=== PATIENT | female | born 1935 | race Caucasian/White ===

== ENCOUNTER → 2016-10-18 | Outpatient (CLI) | payer MEDICARE, OTHER | CPT/HCPCS: 90833; G0463 ==

== ENCOUNTER → 2016-12-07 | Outpatient (CLI) | payer MEDICARE, OTHER | DX: F33.0 Major depressive disorder, recurrent, mild (principal) | CPT/HCPCS: 90833; G0463 ==

== ENCOUNTER → 2016-12-29 | Outpatient (CLI) | payer MEDICARE, OTHER | LOC: MW.CHFP 13:24 | PROVIDERS: ATTEND Physician Assistant | DX: K92.1 Melena (principal) | CPT/HCPCS: 36415; 82270; 85025; G0463 ==

== ENCOUNTER → 2017-01-03 | Outpatient (CLI) | payer MEDICARE, OTHER | LOC: MW.CHPM 07:59 | PROVIDERS: ATTEND Anesthesiology | DX: K75.4 Autoimmune hepatitis (principal); G89.4 Chronic pain syndrome; M54.5 Low back pain; G89.29 Other chronic pain; M54.17 Radiculopathy, lumbosacral region | CPT/HCPCS: 36415; 80076; 85025; 85610; 85730; 99214 ==

== ENCOUNTER → 2017-01-09 | Outpatient (CLI) | payer MEDICARE, OTHER | PROVIDERS: ATTEND Nurse Practitioner Family | DX: F33.0 Major depressive disorder, recurrent, mild (principal) | CPT/HCPCS: 90833; G0463 ==

== ENCOUNTER → 2017-01-12 | Outpatient (CLI) | payer MEDICARE, OTHER | LOC: MW.CHFP 13:29 | PROVIDERS: ATTEND Physician Assistant | DX: Z01.818 Encounter for other preprocedural examination (principal); M12.88 Other specific arthropathies, not elsewhere classified, other specified site; R73.9 Hyperglycemia, unspecified; R73.03 Prediabetes | CPT/HCPCS: 36415; 80048; 81001; 83036; 99214 ==

== ENCOUNTER → 2017-01-17 | Outpatient (CLI) | payer MEDICARE, OTHER | LOC: MW.CHPM 08:00 | PROVIDERS: ATTEND Anesthesiology | DX: M96.1 Postlaminectomy syndrome, not elsewhere classified (principal); G89.4 Chronic pain syndrome; M12.88 Other specific arthropathies, not elsewhere classified, other specified site; M54.17 Radiculopathy, lumbosacral region | CPT/HCPCS: 99214 ==

== ENCOUNTER 2017-01-24 09:55 | Day surgery (SDC) | payer MEDICARE, OTHER ==
[~2017-01-24 09:55] MED LIST: Iopamidol 408 MG/ML 50 ML SDV ONE; Lidocaine 2% 5 ML SDV ONE; Ropivacaine 0.5% 5 MG/ML 30 ML SDV ONE
--- NOTE | 2017-01-24 11:20 | PCM.PREANE ---
Preanesthetic Assessment - Anesthesia/Transfusion/Family Hx Anesthesia History: Prior Anesthesia Reaction Other Type of Anesthesia Reaction Comment: N&V x 8hrs post Ptosis surgery Transfusion History: No Prior Transfusion(s) - Review of Systems General: No Symptoms Pulmonary: No Symptoms Cardiovascular: No Symptoms Gastrointestinal: No symptoms Neurological: No Symptoms Other: Reports: None - Physical Assessment Height: 1.65 m Weight: 98.883 kg ASA Class: 3 Mental Status: Alert & Oriented x3 Airway Class: Mallampati = 2 Dentition: Reports: Dentures (upper), Partial (lower) Thyro-Mental Finger Breadths: 3 Mouth Opening Finger Breadths: 2 ROM/Head Extension: Limited/Partial Lungs: Clear to auscultation, Normal respiratory effort Cardiovascular: Regular Rate, Regular Rhythm - Allergies Allergies/Adverse Reactions: Allergies Allergy/AdvReac Type Severity Reaction Status Date / Time metronidazole Allergy Cannot Verified 01/20/17 11:16 Remember morphine Allergy Nausea and Verified 01/20/17 11:16 Vomiting Penicillins Allergy Swelling Verified 01/20/17 11:16 propoxyphene HCl Allergy Drowsiness Verified 01/20/17 11:16 [From [facility]] - Blood Blood Available: No - Anesthesia Plan Pre-Op Medication Ordered: None - Acknowledgements Anesthesia Type Planned: MAC Pt an Appropriate Candidate for the Planned Anesthesia: Yes Alternatives and Risks of Anesthesia Discussed w Pt/Guardian: Yes Pt/Guardian Understands and Agrees with Anesthesia Plan: Yes PreAnesthesia Questionnaire HEENT History: Reports: Glaucoma, Hard of hearing Other HEENT History: wears glasses, has upper denture and lower partial removable denture Cardiovascular History: Reports: High cholesterol, Other (see below) (h/o abnormal EKG 02/21 (see tracing)) Respiratory History: Reports: Bronchitis, recurrent Gastrointestinal History: Reports: Hepatitis Other Gastrointestinal History: Autoimmune Hepatitis, was treated with Prednisone for 2 years- liver now ok per patient 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: Reports: None 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: Musculoskeletal History: Reports: Arthritis, Back pain, chronic, Fracture Other Musculoskeletal History: hx of fx foot Neurological History: Reports: Migraines, Other (see below) Other Neuro History: HX of restless leg syndrome Psychiatric History: Reports: Anxiety, Depression Endocrine/Metabolic History: Reports: Diabetes, type II, Obesity/BMI 30+ Other Endocrine/Metabolic History: recent dx of diabetes Hematologic History: Reports: None Immunologic History: Reports: None Oncologic (Cancer) History: Reports: None Dermatologic History: Reports: Other (see below) Other Dermatologic History: rash on right arm and and legs - Infectious Disease History Infectious Disease History: Reports: Chicken pox, Hepatitis non A,B,C Other Infectious Disease History: autoimmune hepatitis - Past Surgical History Head Surgeries/Procedures: Reports: None HEENT Surgical History: Reports: Tonsillectomy, Other (see below) Other HEENT Surgeries/Procedures: repair of Ptosis bilateral eyelids Cardiovascular Surgical History: Reports: None Respiratory Surgical History: Reports: None GI Surgical History: Reports: Appendectomy, Cholecystectomy Female Surgical History: Reports: Hysterectomy, Other (see below) Other Female Surgeries/Procedures: Exploratory Laparotomy Endocrine Surgical History: Reports: None Neurological Surgical History: Reports: Spinal fusion Musculoskeletal Surgical History: Reports: Knee replacement Other Musculoskeletal Surgeries/Procedures:: left Oncologic Surgical History: Reports: None Dermatological Surgical History: Reports: None - SUBSTANCE USE Smoking Status *Q: Never Smoker Second Hand Smoke Exposure: No Days Per Week of Alcohol Use: 0 Recreational Drug Use History: No - HOME MEDS Home Medications: Home Meds Venlafaxine [Effexor XR] 150 mg PO QPM 06/15/14 [History] rOPINIRole [Requip] 0.5 tab PO BEDTIME 06/15/14 [History] rOPINIRole [Requip] 1 tab PO BEDTIME 06/15/14 [History] Amitriptyline HCl 75 mg PO BEDTIME 01/20/17 [History] Aspirin [Adult Low Dose Aspirin EC] 81 mg PO DAILY 01/20/17 [History] Calcium Carbonate/Vitamin D3 [Calcium 600 + Vit D 200] 1 tab PO DAILY 01/20/17 [ History] Diclofenac Sodium [Voltaren] 4 gm TOP ASDIRECTED 01/20/17 [History] Fluocinonide [Lidex 0.05% Crm] 1 applic TOP BID 01/20/17 [History] Latanoprost [Xalatan 0.005% Ophth Soln] 1 drop EYEBOTH BEDTIME 01/20/17 [History ] Multivitamin [Daily Multiple Vitamin] 1 tab PO DAILY 01/20/17 [History] Venlafaxine [Effexor] 37.5 mg PO QPM 01/20/17 [History] clonazePAM [Klonopin] 0.5 tab PO TID 01/20/17 [History] metFORMIN [Glucophage XR] 500 mg PO DAILY 01/20/17 [History] - CURRENT (IN HOUSE) MEDS Current Meds: Current Medications Discontinued Medications Iopamidol (Isovue-200 (41%)) Confirm Administered Dose 50 ml .ROUTE .STK-MED ONE Stop: 01/24/17 09:42 Lidocaine (Xylocaine-Mpf 2%) Confirm Administered Dose 10 ml .ROUTE .STK-MED ONE Stop: 01/24/17 09:20 Lidocaine HCl (Xylocaine-Mpf 1%) Confirm Administered Dose 10 ml .ROUTE .STK- MED ONE Stop: 01/24/17 09:20 Ropivacaine (Naropin 0.5%) Confirm Administered Dose 30 ml .ROUTE .STK-MED ONE Stop: 01/24/17 09:20
[2017-01-24] MEDS ORDERED: fentaNYL 100 MCG/2 ML SDV ONE (11:56)
[2017-01-24] MEDS ORDERED: Midazolam 1 MG/ML 2 ML SDV ONE (11:56)
[2017-01-24] MEDS ORDERED: Propofol 200 MG/20 ML SDV ONE (11:56)
[2017-01-24] MEDS ORDERED: Clindamycin Phosphate in D5W 50 ML ONE (12:13)
--- NOTE | 2017-01-24 13:42 | PCM48HPAN ---
Post Anesthesia Note - EVALUATION WITHIN 48HRS OF ANESTHETIC Vital Signs in Normal Range: Yes Patient Participated in Evaluation: Yes Respiratory Function Stable: Yes Airway Patent: Yes Cardiovascular Function Stable: Yes Hydration Status Stable: Yes Pain Control Satisfactory: Yes Nausea and Vomiting Control Satisfactory: Yes Mental Status Recovered: Yes - COMMENTS/OBSERVATIONS Free Text/Narrative:: Pt stable enough to go to phase II recovery (skipped PACU). Pt stable. VSS. No apparent anesthesia complications.
--- NOTE | 2017-01-24 14:55 | CR ---
EXAMINATION: Thoracic spine HISTORY: Spinal cord stimulator placement TECHNIQUE: 5 fluoroscopic images provided FINDINGS/IMPRESSION: Operative control films demonstrate a spinal cord stimulator leads projecting o melecio the epidural space of the mid to lower thoracic spine.
--- NOTE | 2017-01-24 18:40 | OR ---
SURGEON: Rosalee Kee D.O. DATE OF PROCEDURE: 01/24/2017 OR STAFF PRESENT: 1. Pritesh Pardo RN. 2. Karlie Giles RN. CLINICAL PHARMACY COORDINATOR: Tamy Barlow RT. WOUND CLASSIFICATION: I. PREOPERATIVE DIAGNOSES: 1. Chronic pain syndrome. 2. Chronic low back pain. 3. Multilevel degenerative disk disease. 4. Lumbar spondylosis. 5. Lumbar spinal stenosis. 6. Lumbar radiculopathy. POSTOPERATIVE DIAGNOSES: 1. Chronic pain syndrome. 2. Chronic low back pain. 3. Multilevel degenerative disk disease. 4. Lumbar spondylosis. 5. Lumbar spinal stenosis. 6. Lumbar radiculopathy. PROCEDURE PERFORMED: 1. Right [employer] In[employer]ion 16, 50 cm, 16-contact trial lead placed to the top of T7 vertebra on the right. 2. Left [employer] In[employer] 16, 50 cm, 16-contact trial lead placed to the top of T7 vertebra on the left. 3. Fluoroscopic guidance for needle placement. 4. Local with oral Valium for sedation. ANESTHESIA: Local with sedation. SCREENING QUESTIONS: The patient answered no to all the following questions: 1. Are you allergic to iodine, Betadine, or latex? 2. Do you have a bleeding disorder? 3. Are you on anti-inflammatories or blood thinners? 4. Are you ? 5. Do you have any current local or systemic infections? 6. Do you have any joint replacements, heart valve replacements or a pacemaker? DESCRIPTION OF PROCEDURE: The patient had the procedure thoroughly explained including risks, benefits, and alternatives. Consent was signed in my clinic indicating understanding and willingness to proceed. The patient presented to [facility] and was escorted to the dressing room to disrobe and change into a hospital gown. Preoperative history and screening were performed by the nurse. Vital signs were taken and stable. The patient was set up with an IV prior to the procedure. The patient was brought back to the procedure room and placed in the prone position on the procedure room table. A pillow was placed under the abdomen in order to flatten the lumbar lordosis. The patient was positioned comfortably and there was no evidence of infection at the sites of needle insertion. The back was prepped with ChloraPrep and sterilely draped. All personnel in the operating room were dressed in appropriate attire including surgical scrubs, head and shoe covers. This was to ensure sterility while in the treatment room. During the time fluoroscopy was in use, all personnel in the operating room wore lead suero with thyroid collars. Sterile technique was used during the procedure. Prior to the start of the procedure, prophylactic antibiotic was administered IV. Skeletal landmarks were identified under fluoroscopic guidance. At all insertion sites, the skin and soft tissues were anesthetized with 2% lidocaine preservative-free with a sterile 27-gauge 1-1/2 inch needle. The epidural space was entered with a 14-gauge Tuohy epidural needle with loss-of- resistance technique. Under live fluoroscopic guidance, the [employer]ion 16 standard contact lead electrodes were advanced approximately to the left midline at the top of the T7 vertebral body on the left and then again second lead placed to the tip of T7 on the right. No CSF, no heme, no paresthesia were noted. Testing by the neuromodulation clinical specialist revealed appropriate coverage of the patient's normal areas of pain. The leads were then secured to the skin with occlusive dressing. No complications were noted throughout the procedure and vital signs were stable. Then the patient was brought to the recovery room in stable condition. At that time, the patient had additional stimulation patterns programmed which covered all of her normal areas of back leg, and foot pain. The patient tolerated the procedure well and was released home with postoperative instructions for followup in the clinic in the morning. The patient will fill out a pain diary throughout the week of the spinal cord stimulator trial. Additionally, prior to discharge, postoperative instructions were given to the patient and the patient voiced understanding, including understanding of those signs and symptoms that would require emergency care. PREOPERATIVE PAIN: 10/10. POSTOPERATIVE PAIN: All areas of pain covered by spinal cord stimulation. 0/10 FOLLOWUP: Follow up in the Pain Clinic in the morning. HOGHIREN / DOMINICK /[id number] SHAYNA
== END 2017-01-24 15:00 | disposition home or self-care (01) ==
LOC: MW.SDS 09:55
PROVIDERS: ATTEND Anesthesiology
DX: G89.4 Chronic pain syndrome (principal); M47.896 Other spondylosis, lumbar region; M48.06 Spinal stenosis, lumbar region; J20.9 Acute bronchitis, unspecified; F41.9 Anxiety disorder, unspecified; F32.9 Major depressive disorder, single episode, unspecified; E78.00 Pure hypercholesterolemia, unspecified; M79.1 Myalgia; M19.90 Unspecified osteoarthritis, unspecified site; G57.02 Lesion of sciatic nerve, left lower limb; R73.03 Prediabetes; G25.81 Restless legs syndrome; M96.1 Postlaminectomy syndrome, not elsewhere classified; Z88.0 Allergy status to penicillin; Z88.1 Allergy status to other antibiotic agents; Z88.5 Allergy status to narcotic agent; Z88.8 Allergy status to other drugs, medicaments and biological substances; Z79.891 Long term (current) use of opiate analgesic; Z79.82 Long term (current) use of aspirin; Z79.899 Other long term (current) drug therapy; Z96.652 Presence of left artificial knee joint; Z90.49 Acquired absence of other specified parts of digestive tract; Z90.710 Acquired absence of both cervix and uterus; Z90.89 Acquired absence of other organs; Z98.890 Other specified postprocedural states
CPT/HCPCS: 63650; 76000; C1778; J3010; 00630; 63685; J2250; J2704; J2795; Q9966

== ENCOUNTER → 2017-01-27 | Outpatient (CLI) | payer MEDICARE, OTHER ==
--- NOTE | 2017-01-27 11:41 | CR ---
EXAMINATION: Thoracic spine HISTORY: Pain COMPARISON: MRI dated 04/12/2016 TECHNIQUE: 2 views FINDINGS: There is mild dextrocurvature of the thoracic spine. The vertebral body heights and disc s paces appear grossly maintained. The osseous structures appear mildly osteopenic. Spinal stimulator leads project within the epidural space of the T8-T10 vertebral bodies. No fracture or acute osseous abnormality. Marginal osteophytes are noted. IMPRESSION: 1. Mild degenerative changes without acute findings. 2. Final stimulator leads project over the mid to lower thoracic spine. 3. Otherwise osteopenia.
== END ==
LOC: MW.CHPM 09:13
PROVIDERS: ATTEND Anesthesiology
DX: M54.5 Low back pain (principal); G89.29 Other chronic pain; R35.0 Frequency of micturition; M47.814 Spondylosis without myelopathy or radiculopathy, thoracic region; M85.88 Other specified disorders of bone density and structure, other site
CPT/HCPCS: 72070; 72070-26; 81001

== ENCOUNTER → 2017-01-30 | Outpatient (CLI) | payer MEDICARE, OTHER | LOC: MW.CHPM 08:00 | PROVIDERS: ATTEND Anesthesiology | DX: M54.17 Radiculopathy, lumbosacral region (principal); Z79.891 Long term (current) use of opiate analgesic; G89.4 Chronic pain syndrome; M51.36 Other intervertebral disc degeneration, lumbar region | CPT/HCPCS: 99214 ==

== ENCOUNTER 2017-02-25 11:04 | Emergency (ER) | payer MEDICARE, OTHER ==
--- NOTE | 2017-02-25 11:32 | EDM.PDOC ---
ED HPI GENERAL MEDICAL PROBLEM - General Chief Complaint: Genitourinary Problem Stated Complaint: POSSIBLE UTI Time Seen by Provider: 02/25/17 11:05 Source of Information: Reports: Patient History Limitations: Reports: No Limitations - History of Present Illness INITIAL COMMENTS - FREE TEXT/NARRATIVE: History of present illness: [81-year-old female presenting with complaints of blood in her urine. Patient also indicates she has some amount of flank pain which is new for her, but she does indicate that she has had history of UTIs in the past with blood in with the same complaint pain.] Review of systems: As per history of present illness and below otherwise all systems reviewed and negative. Past medical history: As per history of present illness and as reviewed below otherwise noncontributory. Surgical history: As per history of present illness and as reviewed below otherwise noncontributory. Social history: No reported history of drug or alcohol abuse. Family history: As per history of present illness and as reviewed below otherwise noncontributory. Physical exam: HEENT: Atraumatic, normocephalic, pupils reactive, negative for conjunctival pallor or scleral icterus, mucous membranes moist, throat clear, neck supple, nontender, trachea midline. Lungs: Clear to auscultation, breath sounds equal bilaterally, chest nontender. Heart: S1S2, regular, negative for clicks, rubs, or JVD. Abdomen: Soft, nondistended, nontender. Negative for masses or hepatosplenomegaly. Positive for costovertebral tenderness. Pelvis: Stable nontender. Genitourinary: Deferred. Rectal: Deferred. Extremities: Atraumatic, negative for cords or calf pain. Neurovascular unremarkable. Neuro: Awake, alert, oriented. Cranial nerves II through XII unremarkable. Cerebellum unremarkable. Motor and sensory unremarkable throughout. Exam nonfocal. Diagnostics: [UA, CT without contrast of abdomen to] Therapeutics: [] Impression: [Hemorrhagic cystitis Liver lesion] Plan: [Antibiotics, followup with PCP for further evaluation of urinary concerns as well as incidental liver findings] Definitive disposition and diagnosis as appropriate pending reevaluation and review of above. lower abdominal pain Pain Score (Numeric/FACES): 1 - Related Data Allergies Allergy/AdvReac Type Severity Reaction Status Date / Time metronidazole Allergy Cannot Verified 02/25/17 11:11 Remember morphine Allergy Nausea and Verified 02/25/17 11:11 Vomiting Penicillins Allergy Swelling Verified 02/25/17 11:11 propoxyphene HCl Allergy Drowsiness Verified 02/25/17 11:11 [From [facility]] Home Meds: Home Meds Venlafaxine [Effexor XR] 150 mg PO QPM 06/15/14 [History] rOPINIRole [Requip] 0.5 tab PO BEDTIME 06/15/14 [History] rOPINIRole [Requip] 1 tab PO BEDTIME 06/15/14 [History] Amitriptyline HCl 75 mg PO BEDTIME 01/20/17 [History] Aspirin [Adult Low Dose Aspirin EC] 81 mg PO DAILY 01/20/17 [History] Calcium Carbonate/Vitamin D3 [Calcium 600 + Vit D 200] 1 tab PO DAILY 01/20/17 [ History] Diclofenac Sodium [Voltaren] 4 gm TOP ASDIRECTED 01/20/17 [History] Fluocinonide [Lidex 0.05% Crm] 1 applic TOP BID 01/20/17 [History] Latanoprost [Xalatan 0.005% Ophth Soln] 1 drop EYEBOTH BEDTIME 01/20/17 [History ] Multivitamin [Daily Multiple Vitamin] 1 tab PO DAILY 01/20/17 [History] Venlafaxine [Effexor] 37.5 mg PO QPM 01/20/17 [History] clonazePAM [Klonopin] 0.5 tab PO TID 01/20/17 [History] metFORMIN [Glucophage XR] 500 mg PO DAILY 01/20/17 [History] Nitrofurantoin Monohyd/M-Cryst [Macrobid 100 mg Capsule] 100 mg PO BID #20 capsule 02/25/17 [Rx] Past Medical History HEENT History: Reports: Glaucoma, Hard of Hearing Other HEENT History: wears glasses, has upper denture and lower partial removable denture Cardiovascular History: Reports: High Cholesterol, Other (See Below) Respiratory History: Reports: Bronchitis, Recurrent Gastrointestinal History: Reports: Hepatitis Other Gastrointestinal History: Autoimmune Hepatitis, was treated with Prednisone for 2 years- liver now ok per patient 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: Reports: None 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: Musculoskeletal History: Reports: Arthritis, Back Pain, Chronic, Fracture Other Musculoskeletal History: hx of fx foot Neurological History: Reports: Migraines, Other (See Below) Other Neuro History: HX of restless leg syndrome Psychiatric History: Reports: Anxiety, Depression Endocrine/Metabolic History: Reports: Diabetes, Type II, Obesity/BMI 30+ Other Endocrine/Metabolic History: recent dx of diabetes Hematologic History: Reports: None Immunologic History: Reports: None Oncologic (Cancer) History: Reports: None Dermatologic History: Reports: Other (See Below) Other Dermatologic History: rash on right arm and and legs - Infectious Disease History Infectious Disease History: Reports: Chicken Pox, Hepatitis non A,B,C Other Infectious Disease History: autoimmune hepatitis - Past Surgical History HEENT Surgical History: Reports: Tonsillectomy, Other (See Below) Female Surgical History: Reports: Hysterectomy, Other (See Below) Neurological Surgical History: Reports: Spinal Fusion Musculoskeletal Surgical History: Reports: Knee Replacement Social & Family History - Family History Family Medical History: Noncontributory Cardiac: Reports: High Cholesterol, [place] - Tobacco Use Smoking Status *Q: Never Smoker Second Hand Smoke Exposure: No - Alcohol Use Days Per Week of Alcohol Use: 0 - Recreational Drug Use Recreational Drug Use: No Drug Use in Last 12 Months: No ED ROS GENERAL - Review of Systems Review Of Systems: See Below (See history of present illness) ED EXAM, RENAL/ - Physical Exam Exam: See Below (See history of present illness) Course - Vital Signs Last Recorded V/S: Last Vital Signs Temp 36.1 C 02/25/17 11:11 Pulse 93 02/25/17 11:11 Resp 18 02/25/17 11:11 BP 121/67 02/25/17 11:11 Pulse Ox 96 02/25/17 11:11 - Orders/Labs/Meds Orders: Active Orders 24 hr Category Date Time Status UA W/MICROSCOPIC [URIN] Stat Lab 02/25/17 11:26 Ordered Departure - Departure Time of Disposition: 13:44 Disposition: Home, Self-Care 01 Condition: good Clinical Impression: Hemorrhagic cystitis - Discharge Information Forms: ED Department Discharge Additional Instructions: The following information is given to patients seen in the emergency department who are being discharged to home. This information is to outline your options for follow-up care. We provide all patients seen in our emergency department with a follow-up referral. The need for follow-up, as well as the timing and circumstances, are variable depending upon the specifics of your emergency department visit. If you don't have a primary care physician on staff, we will provide you with a referral. We always advise you to contact your personal physician following an emergency department visit to inform them of the circumstance of the visit and for follow-up with them and/or the need for any referrals to a consulting specialist. The emergency department will also refer you to a specialist when appropriate. This referral assures that you have the opportunity for follow-up care with a specialist. All of these measure are taken in an effort to provide you with optimal care, which includes your follow-up. Under all circumstances we always encourage you to contact your private physician who remains a resource for coordinating your care. When calling for follow-up care, please make the office aware that this follow-up is from your recent emergency room visit. If for any reason you are refused follow-up, please contact the [facility] Emergency Department at and asked to speak to the emergency department charge nurse. Take medication as directed Followup with your primary care provider in regards to the bleeding from your bladder as discussed as well as the findings from the CT on your liver. As discussed this could be issues related to the history of hepatitis or something more concerning it is imperative that you followup with us as discussed Return to ED as needed as discussed - My Orders Last 24 Hours: My Active Orders 02/25/17 11:26 UA W/MICROSCOPIC [URIN] Stat - Assessment/Plan Last 24 Hours: My Active Orders 02/25/17 11:26 UA W/MICROSCOPIC [URIN] Stat
[2017-02-25 14:02] VITALS: BP 111/70
--- NOTE | 2017-02-27 14:34 | CT ---
EXAM DATE: 02/25/17 PATIENT'S AGE: 81 Patient: MOHINDER MCFARLAND Facility: [facility] [place] [place] Site . Site : [id number] Study: CT Abdomen/Pelvis WO CONT [id number]/[id number] 12:37:02 PM Ordering Physician: Doctor Rodarte Final Report: INDICATION: Flank pain; hematuria; burning pain. Comparison: None. Technique: CT abdomen and pelvis without intravenous or oral contrast; coronal and sagittal reformats. Findings: No abnormal intra pulmonary nodular densities through the lung bases. No evidence of pleural effusion. Normal size cardiac silhouette without any evidence of pericardial effusion. Suggestion of multiple mass lesions within the liver raising a question of metastatic liver disease. This needs further assessment either with focused ultrasound examination of the liver or if clinical situation permits, a repeat CT of the liver with intravenous contrast. No splenic pathology. No pancreatic pathology. Gallbladder is absent. No adrenal pathology. No kidney stones. No obstructive uropathy or perinephric pathology. No retroperitoneal lymphadenopathy. No evidence of abdominal or pelvic ascites. CT study of the pelvis is unremarkable. Status post hysterectomy. Grade 1 spondylolisthesis of L4. No evidence of spondylolysis. Impression: Abnormal liver with suggestion of multiple mass lesions; rule out metastatic disease; suggest obtaining dedicated CT of the liver with intravenous contrast or a focused ultrasound examination of the liver. 1. No kidneys stones or obstructive uropathy. 2. Status post hysterectomy. 3. Grade 1 spondylolisthesis of L4. Please note that all CT scans at this facility use dose modulation, iterative reconstruction, and/or weight-based dosing when appropriate to reduce radiation dose to as low as reasonably achievable. Dictated by Alton Kwok MD @ Feb 25 2017 1:27PM (Electronic Signature) Report Signed by Proxy. SHAYNA
== END 2017-02-25 13:59 | disposition home or self-care (01) ==
LOC: MW.ED 11:04
DX: N30.91 Cystitis, unspecified with hematuria (principal); E78.00 Pure hypercholesterolemia, unspecified; M19.90 Unspecified osteoarthritis, unspecified site; E11.9 Type 2 diabetes mellitus without complications; G43.909 Migraine, unspecified, not intractable, without status migrainosus; F41.9 Anxiety disorder, unspecified; E66.9 Obesity, unspecified; F32.9 Major depressive disorder, single episode, unspecified; Z88.8 Allergy status to other drugs, medicaments and biological substances; Z79.84 Long term (current) use of oral hypoglycemic drugs; Z79.82 Long term (current) use of aspirin; Z98.890 Other specified postprocedural states; Z88.0 Allergy status to penicillin; Z90.710 Acquired absence of both cervix and uterus; Z96.659 Presence of unspecified artificial knee joint; Z88.5 Allergy status to narcotic agent
CPT/HCPCS: 74176; 74176-26; 81001; 87086; 99283; 99284-25

== ENCOUNTER → 2017-02-28 | Outpatient (CLI) | payer MEDICARE, OTHER | LOC: MW.CHFP 10:28 | PROVIDERS: ATTEND Physician Assistant | DX: R93.2 Abnormal findings on diagnostic imaging of liver and biliary tract (principal); K75.4 Autoimmune hepatitis | CPT/HCPCS: 36415; 80053; 85025; G0463 ==

== ENCOUNTER 2017-03-26 10:14 | Emergency (ER) | payer MEDICARE, OTHER ==
--- NOTE | 2017-03-26 10:27 | EDM.PDOC ---
ED HPI GENERAL MEDICAL PROBLEM - General Chief Complaint: Genitourinary Problem Stated Complaint: URINARY ISSUES Time Seen by Provider: 03/26/17 10:27 Source of Information: Reports: Patient - History of Present Illness INITIAL COMMENTS - FREE TEXT/NARRATIVE: HISTORY AND PHYSICAL: History of present illness: []Patient presents with dysuria and frequency over the last 24-48 hours no fever nausea vomiting chills sweats Review of systems: As per history of present illness and below otherwise all systems reviewed and negative. Past medical history: As per history of present illness and as reviewed below otherwise noncontributory. Surgical history: As per history of present illness and as reviewed below otherwise noncontributory. Social history: No reported history of drug or alcohol abuse. Family history: As per history of present illness and as reviewed below otherwise noncontributory. Physical exam: HEENT: Atraumatic, normocephalic, pupils reactive, negative for conjunctival pallor or scleral icterus, mucous membranes moist, throat clear, neck supple, nontender, trachea midline. Lungs: Clear to auscultation, breath sounds equal bilaterally, chest nontender. Heart: S1S2, regular, negative for clicks, rubs, or JVD. Abdomen: Soft, nondistended, nontender. Negative for masses or hepatosplenomegaly. Negative for costovertebral tenderness. Pelvis: Stable nontender. Genitourinary: Deferred. Rectal: Deferred. Extremities: Atraumatic, negative for cords or calf pain. Neurovascular unremarkable. Neuro: Awake, alert, oriented. Cranial nerves II through XII unremarkable. Cerebellum unremarkable. Motor and sensory unremarkable throughout. Exam nonfocal. Diagnostics: []UA with culture Therapeutics: []Macrobid Pyridium Impression: []Dysuria Definitive disposition and diagnosis as appropriate pending reevaluation and review of above. - Related Data Allergies Allergy/AdvReac Type Severity Reaction Status Date / Time metronidazole Allergy Cannot Verified 03/26/17 10:28 Remember morphine Allergy Nausea and Verified 03/26/17 10:28 Vomiting Penicillins Allergy Swelling Verified 03/26/17 10:28 propoxyphene HCl Allergy Drowsiness Verified 03/26/17 10:28 [From Darvon] Home Meds: Home Meds Venlafaxine [Effexor XR] 150 mg PO QPM 06/15/14 [History] rOPINIRole [Requip] 1 tab PO BEDTIME 06/15/14 [History] Amitriptyline HCl 75 mg PO BEDTIME 01/20/17 [History] Aspirin [Adult Low Dose Aspirin EC] 81 mg PO DAILY 01/20/17 [History] Calcium Carbonate/Vitamin D3 [Calcium 600 + Vit D 200] 1 tab PO DAILY 01/20/17 [ History] Diclofenac Sodium [Voltaren] 4 gm TOP ASDIRECTED 01/20/17 [History] Fluocinonide [Lidex 0.05% Crm] 1 applic TOP BID 01/20/17 [History] Latanoprost [Xalatan 0.005% Ophth Soln] 1 drop EYEBOTH BEDTIME 01/20/17 [History ] Multivitamin [Daily Multiple Vitamin] 1 tab PO DAILY 01/20/17 [History] Venlafaxine [Effexor] 37.5 mg PO QPM 01/20/17 [History] clonazePAM [Klonopin] 0.5 tab PO TID 01/20/17 [History] metFORMIN [Glucophage XR] 500 mg PO BID 01/20/17 [History] Past Medical History HEENT History: Reports: Glaucoma, Hard of Hearing Other HEENT History: wears glasses, has upper denture and lower partial removable denture Cardiovascular History: Reports: High Cholesterol, Other (See Below) Respiratory History: Reports: Bronchitis, Recurrent Gastrointestinal History: Reports: Hepatitis Other Gastrointestinal History: Autoimmune Hepatitis, was treated with Prednisone for 2 years- liver now ok per patient 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: Reports: None 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: Musculoskeletal History: Reports: Arthritis, Back Pain, Chronic, Fracture Other Musculoskeletal History: hx of fx foot Neurological History: Reports: Migraines, Other (See Below) Other Neuro History: HX of restless leg syndrome Psychiatric History: Reports: Anxiety, Depression Endocrine/Metabolic History: Reports: Diabetes, Type II, Obesity/BMI 30+ Other Endocrine/Metabolic History: recent dx of diabetes Hematologic History: Reports: None Immunologic History: Reports: None Oncologic (Cancer) History: Reports: None Dermatologic History: Reports: Other (See Below) Other Dermatologic History: rash on right arm and and legs - Infectious Disease History Infectious Disease History: Reports: Chicken Pox, Hepatitis non A,B,C Other Infectious Disease History: autoimmune hepatitis - Past Surgical History HEENT Surgical History: Reports: Tonsillectomy, Other (See Below) Female Surgical History: Reports: Hysterectomy, Other (See Below) Neurological Surgical History: Reports: Spinal Fusion Musculoskeletal Surgical History: Reports: Knee Replacement Social & Family History - Family History Family Medical History: Noncontributory Cardiac: Reports: High Cholesterol, [place] - Tobacco Use Smoking Status *Q: Never Smoker Second Hand Smoke Exposure: No - Caffeine Use Caffeine Use: Reports: None - Alcohol Use Days Per Week of Alcohol Use: 0 - Recreational Drug Use Recreational Drug Use: No Drug Use in Last 12 Months: No ED ROS GENERAL - Review of Systems Review Of Systems: ROS reveals no pertinent complaints other than HPI. ED EXAM, GENERAL - Physical Exam Exam: See Below Course - Vital Signs Last Recorded V/S: Last Vital Signs Temp 36.5 C 03/26/17 10:25 Pulse 98 03/26/17 10:25 Resp 18 03/26/17 10:25 BP 140/77 03/26/17 10:25 Pulse Ox 95 03/26/17 10:25 - Orders/Labs/Meds Orders: Active Orders 24 hr Category Date Time Status CULTURE URINE [RM] Stat Lab 03/26/17 11:30 Received UA W/MICROSCOPIC [URIN] Stat Lab 03/26/17 11:30 Results Labs: Laboratory Tests 03/26/17 Range/Units 11:30 Urine Color RED Urine Appearance SLT CLOUDY Urine pH 5.5 (5.0-8.0) Ur Specific [place] 1.010 (1.001-1.035) Urine Protein 100 (NEGATIVE) mg/dL Urine Glucose (UA) NEGATIVE (NEGATIVE) mg/dL Urine Ketones NEGATIVE (NEGATIVE) mg/dL Urine Occult Blood LARGE H (NEGATIVE) Urine Nitrite NEGATIVE (NEGATIVE) Urine Bilirubin SMALL H (NEGATIVE) Urine Urobilinogen 0.2 (<2.0) EU/dL Ur Leukocyte Esterase LARGE (NEGATIVE) Departure - Departure Time of Disposition: 11:43 Disposition: Home, Self-Care 01 Condition: Good Clinical Impression: UTI, Urinary tract infectious disease - Discharge Information Forms: ED Department Discharge Additional Instructions: The following information is given to patients seen in the emergency department who are being discharged to home. This information is to outline your options for follow-up care. We provide all patients seen in our emergency department with a follow-up referral. The need for follow-up, as well as the timing and circumstances, are variable depending upon the specifics of your emergency department visit. If you don't have a primary care physician on staff, we will provide you with a referral. We always advise you to contact your personal physician following an emergency department visit to inform them of the circumstance of the visit and for follow-up with them and/or the need for any referrals to a consulting specialist. The emergency department will also refer you to a specialist when appropriate. This referral assures that you have the opportunity for follow-up care with a specialist. All of these measure are taken in an effort to provide you with optimal care, which includes your follow-up. Under all circumstances we always encourage you to contact your private physician who remains a resource for coordinating your care. When calling for follow-up care, please make the office aware that this follow-up is from your recent emergency room visit. If for any reason you are refused follow-up, please contact the [facility] emergency department at and asked to speak to the emergency department charge nurse. - My Orders Last 24 Hours: My Active Orders 03/26/17 11:30 CULTURE URINE [RM] Stat UA W/MICROSCOPIC [URIN] Stat - Assessment/Plan Last 24 Hours: My Active Orders 03/26/17 11:30 CULTURE URINE [RM] Stat UA W/MICROSCOPIC [URIN] Stat
[2017-03-26 12:13] VITALS: BP 112/62
== END 2017-03-26 12:13 | disposition home or self-care (01) ==
LOC: MW.ED 10:14
DX: N39.0 Urinary tract infection, site not specified (principal); E78.00 Pure hypercholesterolemia, unspecified; E11.9 Type 2 diabetes mellitus without complications; E66.9 Obesity, unspecified; Z88.0 Allergy status to penicillin; Z88.8 Allergy status to other drugs, medicaments and biological substances; Z79.899 Other long term (current) drug therapy; Z79.84 Long term (current) use of oral hypoglycemic drugs; Z90.710 Acquired absence of both cervix and uterus; Z96.659 Presence of unspecified artificial knee joint; Z68.34 Body mass index [BMI] 34.0-34.9, adult
CPT/HCPCS: 81001; 87086; 87088; 87186; 99283

== ENCOUNTER 2017-04-21 10:41 | Emergency (ER) | payer MEDICARE, OTHER ==
[2017-04-21] MEDS ORDERED: Famotidine 20 MG/2 ML SDV IVPUSH ONE (11:00)
[2017-04-21] MEDS ORDERED: Aspirin 81 MG Tab.Chew PO ONE (11:00)
[2017-04-21] MEDS ORDERED: Alum Hydrox/Mag Hydrox/Simeth 15 ML, Metoclopramide 5 MG, Lidocaine 2% 5 ML PO ONE ×3 (11:00)
[2017-04-21] MEDS ORDERED: Ketorolac 30 MG/ML SDV IVPUSH ONE (11:00)
[2017-04-21 12:10] VITALS: BP 136/75
--- NOTE | 2017-04-21 12:34 | EDM.PDOC ---
ED HPI GENERAL MEDICAL PROBLEM - General Chief Complaint: General Stated Complaint: COLD CHILL IN HER CHEST AREA, DIZZINESS Time Seen by Provider: 04/21/17 11:00 Source of Information: Reports: Patient History Limitations: Reports: No Limitations - History of Present Illness INITIAL COMMENTS - FREE TEXT/NARRATIVE: History of present illness: 82-year-old female comes in complaining of feelings of being lightheaded this a.m. as well as having a cold sensation in her chest. Patient denies any nausea vomiting diarrhea and/or passing out. Review of systems: As per history of present illness and below otherwise all systems reviewed and negative. Past medical history: As per history of present illness and as reviewed below otherwise noncontributory. Surgical history: As per history of present illness and as reviewed below otherwise noncontributory. Social history: No reported history of drug or alcohol abuse. Family history: As per history of present illness and as reviewed below otherwise noncontributory. Physical exam: HEENT: Atraumatic, normocephalic, pupils reactive, negative for conjunctival pallor or scleral icterus, mucous membranes moist, throat clear, neck supple, nontender, trachea midline. Lungs: Clear to auscultation, breath sounds equal bilaterally, chest nontender. Heart: S1S2, regular, negative for clicks, rubs, or JVD. Abdomen: Soft, nondistended, nontender. Negative for masses or hepatosplenomegaly. Negative for costovertebral tenderness. Pelvis: Stable nontender. Genitourinary: Deferred. Rectal: Deferred. Extremities: Atraumatic, negative for cords or calf pain. Neurovascular unremarkable. Neuro: Awake, alert, oriented. Cranial nerves II through XII unremarkable. Cerebellum unremarkable. Motor and sensory unremarkable throughout. Exam nonfocal. Goal assessment is benign save the subjective complaint as noted in the history of present illness of events that happened prior to arrival Diagnostics: [EKG, CBC, CMP, troponin, UA] Therapeutics: [IV fluids, chest pain] Impression: [UTI] Plan: [Macrobid] Definitive disposition and diagnosis as appropriate pending reevaluation and review of above. - Related Data Allergies Allergy/AdvReac Type Severity Reaction Status Date / Time metronidazole Allergy Cannot Verified 04/21/17 10:47 Remember morphine Allergy Nausea and Verified 04/21/17 10:47 Vomiting Penicillins Allergy Swelling Verified 04/21/17 10:47 propoxyphene HCl Allergy Drowsiness Verified 04/21/17 10:47 [From Darvon] Home Meds: Home Meds Venlafaxine [Effexor XR] 150 mg PO QPM 06/15/14 [History] rOPINIRole [Requip] 1 tab PO BEDTIME 06/15/14 [History] Amitriptyline HCl 75 mg PO BEDTIME 01/20/17 [History] Aspirin [Adult Low Dose Aspirin EC] 81 mg PO DAILY 01/20/17 [History] Latanoprost [Xalatan 0.005% Ophth Soln] 1 drop EYEBOTH BEDTIME 01/20/17 [History ] Multivitamin [Daily Multiple Vitamin] 1 tab PO DAILY 01/20/17 [History] Venlafaxine [Effexor] 37.5 mg PO QPM 01/20/17 [History] clonazePAM [Klonopin] 0.5 tab PO TID 01/20/17 [History] metFORMIN [Glucophage XR] 500 mg PO BID 01/20/17 [History] Nitrofurantoin Monohyd/M-Cryst [Macrobid 100 mg Capsule] 100 mg PO BID #20 capsule 04/21/17 [Rx] Past Medical History HEENT History: Reports: Glaucoma, Hard of Hearing, Impaired Vision Other HEENT History: wears glasses, has upper denture and lower partial removable denture Cardiovascular History: Reports: High Cholesterol Respiratory History: Reports: Bronchitis, Recurrent Gastrointestinal History: Reports: Hepatitis Other Gastrointestinal History: Autoimmune Hepatitis, was treated with Prednisone for 2 years- liver now ok per patient 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: Reports: None [employer] History: Reports: Musculoskeletal History: Reports: Arthritis, Back Pain, Chronic, Fracture Other Musculoskeletal History: hx of fx foot Neurological History: Reports: Migraines, Other (See Below) Other Neuro History: HX of restless leg syndrome Psychiatric History: Reports: Anxiety, Depression Endocrine/Metabolic History: Reports: Diabetes, Type II, Obesity/BMI 30+ Other Endocrine/Metabolic History: recent dx of diabetes Hematologic History: Reports: None Immunologic History: Reports: None Oncologic (Cancer) History: Reports: None Dermatologic History: Reports: Other (See Below) Other Dermatologic History: rash on right arm and and legs - Infectious Disease History Infectious Disease History: Reports: Other (See Below) Other Infectious Disease History: Autoiimune hepatitis - Past Surgical History HEENT Surgical History: Reports: Tonsillectomy, Other (See Below) Female Surgical History: Reports: Hysterectomy, Other (See Below) Neurological Surgical History: Reports: Spinal Fusion Musculoskeletal Surgical History: Reports: Knee Replacement Social & Family History - Family History Family Medical History: Noncontributory Cardiac: Reports: High Cholesterol, [place] - Tobacco Use Smoking Status *Q: Never Smoker Second Hand Smoke Exposure: No - Caffeine Use Caffeine Use: Reports: None - Alcohol Use Days Per Week of Alcohol Use: 0 - Recreational Drug Use Recreational Drug Use: No Drug Use in Last 12 Months: No ED ROS GENERAL - Review of Systems Review Of Systems: See Below (See history of present illness) ED EXAM, GENERAL - Physical Exam Exam: See Below (See history of present illness) Course - Vital Signs Last Recorded V/S: Last Vital Signs Temp 36.2 C 04/21/17 10:48 Pulse 83 04/21/17 12:09 Resp 14 04/21/17 12:09 BP 136/75 04/21/17 12:09 Pulse Ox 96 04/21/17 12:09 Orthostatic Blood Pressure [ 95/46 Standing] Orthostatic Blood Pressure [ 115/58 Sitting] Orthostatic Blood Pressure [ 121/58 Supine] - Orders/Labs/Meds Orders: Active Orders 24 hr Category Date Time Status EKG Documentation Completion [RC] STAT Care 04/21/17 11:00 Ordered Chest 2V [CR] Stat Exams 04/21/17 11:00 Ordered Head wo Cont [CT] Stat Exams 04/21/17 11:05 Ordered Saline Lock Insert [OM.PC] Stat Oth 04/21/17 11:00 Ordered Labs: Laboratory Tests 04/21/17 04/21/17 04/21/17 Range/Units 11:05 11:05 11:05 WBC 6.35 (4.0-11.0) K/uL RBC 3.80 L (4.30-5.90) M/uL Hgb 11.3 L (12.0-16.0) g/dL Hct 35.0 L (36.0-46.0) % MCV 92.1 (80.0-98.0) fL MCH 29.7 (27.0-32.0) pg MCHC 32.3 (31.0-37.0) g/dL RDW Std Deviation 48.4 (28.0-62.0) fl RDW Coeff of Angel 14 (11.0-15.0) % Plt Count 248 (150-400) K/uL MPV 10.50 (7.40-12.00) fL Neut % (Auto) 57.0 (48.0-80.0) % Lymph % (Auto) 30.6 (16.0-40.0) % [place] % (Auto) 6.0 (0.0-15.0) % Eos % (Auto) 6.1 (0.0-7.0) % Baso % (Auto) 0.3 (0.0-1.5) % Neut # (Auto) 3.6 (1.4-5.7) K/uL Lymph # (Auto) 1.9 (0.6-2.4) K/uL [place] # (Auto) 0.4 (0.0-0.8) K/uL Eos # (Auto) 0.4 (0.0-0.7) K/uL Baso # (Auto) 0.0 (0.0-0.1) K/uL Nucleated RBC % 0.0 /100WBC Nucleated RBCs # 0 K/uL Sodium 135 L (136-146) mmol/L Potassium 4.5 (3.5-5.1) mmol/L Chloride 105 (98-110) mmol/L Carbon Dioxide 21 (21-31) mmol/L BUN 17 (6.0-23.0) mg/dL Creatinine 0.9 (0.6-1.5) mg/dL Est Cr Clr Drug Dosing 41.87 mL/min Estimated GFR (MDRD) 59.7 ml/min Glucose 94 (60-110) mg/dL Calcium 8.9 (8.8-10.8) mg/dL Total Bilirubin 0.5 (0.1-1.5) mg/dL AST 22 (5-40) IU/L ALT 15 (8-54) IU/L Alkaline Phosphatase 87 (40-150) Troponin I < 0.10 (0.0-0.29) NG/ML Total Protein 7.1 (6.0-8.0) g/dL Albumin 3.9 (3.4-4.8) g/dL Globulin 3.2 (2.0-3.5) g/dL Albumin/Globulin Ratio 1.2 L (1.3-2.8) Amylase 37 (10-90) U/L Lipase 19 (7-80) U/L Urine Color Urine Appearance Urine pH (5.0-8.0) Ur Specific [place] (1.001-1.035) Urine Protein (NEGATIVE) mg/dL Urine Glucose (UA) (NEGATIVE) mg/dL Urine Ketones (NEGATIVE) mg/dL Urine Occult Blood (NEGATIVE) Urine Nitrite (NEGATIVE) Urine Bilirubin (NEGATIVE) Urine Urobilinogen (<2.0) EU/dL Ur Leukocyte Esterase (NEGATIVE) Urine RBC (0-2/HPF) Urine WBC (0-5/HPF) Ur Epithelial Cells (NONE-FEW) Urine Bacteria (NEGATIVE) Urine Mucus (NONE-MOD) 04/21/17 Range/Units 11:20 WBC (4.0-11.0) K/uL RBC (4.30-5.90) M/uL Hgb (12.0-16.0) g/dL Hct (36.0-46.0) % MCV (80.0-98.0) fL MCH (27.0-32.0) pg MCHC (31.0-37.0) g/dL RDW Std Deviation (28.0-62.0) fl RDW Coeff of Angel (11.0-15.0) % Plt Count (150-400) K/uL MPV (7.40-12.00) fL Neut % (Auto) (48.0-80.0) % Lymph % (Auto) (16.0-40.0) % [place] % (Auto) (0.0-15.0) % Eos % (Auto) (0.0-7.0) % Baso % (Auto) (0.0-1.5) % Neut # (Auto) (1.4-5.7) K/uL Lymph # (Auto) (0.6-2.4) K/uL [place] # (Auto) (0.0-0.8) K/uL Eos # (Auto) (0.0-0.7) K/uL Baso # (Auto) (0.0-0.1) K/uL Nucleated RBC % /100WBC Nucleated RBCs # K/uL Sodium (136-146) mmol/L Potassium (3.5-5.1) mmol/L Chloride (98-110) mmol/L Carbon Dioxide (21-31) mmol/L BUN (6.0-23.0) mg/dL Creatinine (0.6-1.5) mg/dL Est Cr Clr Drug Dosing mL/min Estimated GFR (MDRD) ml/min Glucose (60-110) mg/dL Calcium (8.8-10.8) mg/dL Total Bilirubin (0.1-1.5) mg/dL AST (5-40) IU/L ALT (8-54) IU/L Alkaline Phosphatase (40-150) Troponin I (0.0-0.29) NG/ML Total Protein (6.0-8.0) g/dL Albumin (3.4-4.8) g/dL Globulin (2.0-3.5) g/dL Albumin/Globulin Ratio (1.3-2.8) Amylase (10-90) U/L Lipase (7-80) U/L Urine Color YELLOW Urine Appearance CLOUDY Urine pH 6.0 (5.0-8.0) Ur Specific [place] 1.010 (1.001-1.035) Urine Protein NEGATIVE (NEGATIVE) mg/dL Urine Glucose (UA) NEGATIVE (NEGATIVE) mg/dL Urine Ketones NEGATIVE (NEGATIVE) mg/dL Urine Occult Blood TRACE-INTACT (NEGATIVE) Urine Nitrite NEGATIVE (NEGATIVE) Urine Bilirubin NEGATIVE (NEGATIVE) Urine Urobilinogen 0.2 (<2.0) EU/dL Ur Leukocyte Esterase LARGE (NEGATIVE) Urine RBC 0-2 (0-2/HPF) Urine WBC 80-90 (0-5/HPF) Ur Epithelial Cells FEW (NONE-FEW) Urine Bacteria 1+ H (NEGATIVE) Urine Mucus LIGHT (NONE-MOD) Meds: Medications Discontinued Medications Generic Name Dose Route Start Last Admin Trade Name Freq PRN Reason Stop Dose Admin Aspirin 324 mg 04/21/17 11:00 04/21/17 11:14 Aspirin PO 04/21/17 11:01 Not Given ONETIME ONE Al Hydroxide/Mg Hydroxide 15 0 ml 04/21/17 11:00 04/21/17 11:19 ml/ Metoclopramide HCl 5 mg/ PO 04/21/17 11:01 1 each Lidocaine HCl 5 ml ONETIME ONE Administration Famotidine 20 mg 04/21/17 11:00 04/21/17 11:20 Pepcid IVPUSH 04/21/17 11:01 20 mg ONETIME ONE Administration Ketorolac Tromethamine 30 mg 04/21/17 11:00 04/21/17 11:25 Toradol IVPUSH 04/21/17 11:01 30 mg ONETIME ONE Administration Departure - Departure Time of Disposition: 12:33 Disposition: Home, Self-Care 01 Condition: Good Clinical Impression: UTI, Urinary tract infectious disease - Discharge Information Prescriptions: Nitrofurantoin Monohyd/M-Cryst [Macrobid 100 mg Capsule] 100 mg PO BID #20 capsule Forms: ED Department Discharge Additional Instructions: The following information is given to patients seen in the emergency department who are being discharged to home. This information is to outline your options for follow-up care. We provide all patients seen in our emergency department with a follow-up referral. The need for follow-up, as well as the timing and circumstances, are variable depending upon the specifics of your emergency department visit. If you don't have a primary care physician on staff, we will provide you with a referral. We always advise you to contact your personal physician following an emergency department visit to inform them of the circumstance of the visit and for follow-up with them and/or the need for any referrals to a consulting specialist. The emergency department will also refer you to a specialist when appropriate. This referral assures that you have the opportunity for follow-up care with a specialist. All of these measure are taken in an effort to provide you with optimal care, which includes your follow-up. Under all circumstances we always encourage you to contact your private physician who remains a resource for coordinating your care. When calling for follow-up care, please make the office aware that this follow-up is from your recent emergency room visit. If for any reason you are refused follow-up, please contact the [facility] Emergency Department at and asked to speak to the emergency department charge nurse. Take medication as directed Follow-up with PCP 1-2 days Return to ED as needed as discussed - My Orders Last 24 Hours: My Active Orders 04/21/17 11:00 EKG Documentation Completion [RC] STAT Chest 2V [CR] Stat Saline Lock Insert [OM.PC] Stat 04/21/17 11:05 Head wo Cont [CT] Stat - Assessment/Plan Last 24 Hours: My Active Orders 04/21/17 11:00 EKG Documentation Completion [RC] STAT Chest 2V [CR] Stat Saline Lock Insert [OM.PC] Stat 04/21/17 11:05 Head wo Cont [CT] Stat
--- NOTE | 2017-04-21 13:28 | CT ---
EXAM DATE: 04/21/17 PATIENT'S AGE: 82 Patient: MOHINDER MCFARLAND Facility: [place], [place] Site . Site : 1935 Study: CT Head [id number] 12:04:30 PM Ordering Physician: Doctor Rodarte Final Report: HISTORY: Dizziness. TECHNIQUE: The head was scanned in the axial plane at 3 mm intervals without IV contrast. Reconstructed bone windows obtained as well as sagittal and coronal reconstructions. FINDINGS: The visualized paranasal sinuses and mastoid air cells are well aerated. The calvarium is intact. Ventricles and sulci are mildly enlarged. Patchy periventricular and subcortical white matter hypodensity is present. No intra- axial mass, edema or midline shift is identified. No extra-axial fluid collections are seen. Roy-white differentiation is preserved. IMPRESSION: 1. Mild atrophy. 2. Patchy periventricular subcortical white matter hypodensity most consistent with small vessel ischemic change. 3. No acute intracranial pathology or bleed. Dictated by Sofia Mcmahon MD @ 04/21/2017 12:21:29 PM Dictated by: Sofia Mcmahon MD @ 04/21/2017 12:21:42 (Electronic Signature) Report Signed by Proxy. SHAYNA
--- NOTE | 2017-04-21 13:29 | CR ---
EXAM DATE: 04/21/17 PATIENT'S AGE: 82 Patient: MOHINDER MCFARLAND Facility: [place], [place] Site . Site : 1935 Study: XRay Chest [id number] 12:07:38 PM Ordering Physician: Doctor Rodarte Final Report: HISTORY: Chest pain. FINDINGS: PA and lateral chest radiographs are compared to 21 Feb 2016. The cardiac silhouette is normal. Pulmonary vasculature is a cephalization. No lobar consolidation or pleural effusion is seen. No dilated seen at T8, T9 and T10. Mild peridiscal spurring in the thoracic spine. IMPRESSION: No acute cardiopulmonary disease. Dictated by Sofia Mcmahon MD @ 04/21/2017 12:25:12 PM Dictated by: Sofia Mcmahon MD @ 04/21/2017 12:25:19 (Electronic Signature) Report Signed by Proxy. MTDSrini
== END 2017-04-21 12:45 | disposition home or self-care (01) ==
LOC: MW.ED 10:41
DX: N39.0 Urinary tract infection, site not specified (principal); E78.00 Pure hypercholesterolemia, unspecified; M19.90 Unspecified osteoarthritis, unspecified site; F41.9 Anxiety disorder, unspecified; F32.9 Major depressive disorder, single episode, unspecified; E11.9 Type 2 diabetes mellitus without complications; E66.9 Obesity, unspecified; Z98.890 Other specified postprocedural states; Z90.710 Acquired absence of both cervix and uterus; Z98.1 Arthrodesis status; Z96.659 Presence of unspecified artificial knee joint; Z79.84 Long term (current) use of oral hypoglycemic drugs; Z79.899 Other long term (current) drug therapy; Z79.82 Long term (current) use of aspirin; Z88.0 Allergy status to penicillin; Z88.5 Allergy status to narcotic agent; Z88.8 Allergy status to other drugs, medicaments and biological substances; Z88.1 Allergy status to other antibiotic agents
CPT/HCPCS: 36415; 70450; 71020; 80053; 81001; 82150; 83690; 84484; 85025; 93005; 96374; 96375; 99285; A9270; J1885; 99283

== ENCOUNTER 2018-01-07 11:04 | Emergency (ER) | payer MEDICARE, OTHER ==
[2018-01-07 11:29] VITALS: BP 120/63
--- NOTE | 2018-01-07 12:11 | EDM.PDOC ---
ED HPI GENERAL MEDICAL PROBLEM - General Chief Complaint: Genitourinary Problem Stated Complaint: PAIN IN BLADDER Time Seen by Provider: 01/07/18 11:45 Source of Information: Reports: Patient History Limitations: Reports: No Limitations - History of Present Illness INITIAL COMMENTS - FREE TEXT/NARRATIVE: HISTORY AND PHYSICAL: History of present illness: [Patient comes to the emergency room accompanied by her with complaints of dysuria 2 days, hematuria beginning this morning. She has a history of recurrent urinary tract infections, believes that this is her fourth episode in the last 9 months. No fever or chills. Denies chest pain shortness of breath and difficulty breathing. No new or different low back pain than her usual. Mild lower abdominal tenderness. She has otherwise been feeling well. She follows regularly with [facility] for primary care. Has no other complaints or concerns at this time. Prior urine cultures grew out Klebsiella pneumoniae and Klebsiella oxytoca, both are susceptible to Bactrim and nitrofurantoin. Patient states she's been on both in the past.] Review of systems: As per history of present illness and below otherwise all systems reviewed and negative. Past medical history: As per history of present illness and as reviewed below otherwise noncontributory. Surgical history: As per history of present illness and as reviewed below otherwise noncontributory. Social history: No reported history of drug or alcohol abuse. Family history: As per history of present illness and as reviewed below otherwise noncontributory. Physical exam: HEENT: Atraumatic, normocephalic. Oral mucous numbers are pink and moist. Throat is clear. Lungs: Clear to auscultation, breath sounds equal bilaterally. Heart: S1S2, regular rate and rhythm. Abdomen: Abdomen is obese. Soft and nondistended. She is mildly tender over her suprapubic area. No CVA tenderness. No masses rebound or guarding. Genitourinary: Deferred. Rectal: Deferred. Extremities: Atraumatic, negative for cords or calf pain. No swelling or cyanosis to her feet or lower legs. Neurovascular unremarkable. Neuro: Awake, alert, oriented. Motor and sensory unremarkable throughout. Exam nonfocal. Psych: Alert and oriented, pleasant conversational Diagnostics: [UA, urine culture] Therapeutics: Rocephin 1 gram IM Impression: [UTI] Plan: [UA shows red cloudy urine with a specific gravity greater than 1.030, trace ketones, large amount of blood. Nitrates negative. 2-3 white blood cells and a few bacteria. Patient is given Bactrim DS No. 14 one twice a day 0 refills. This is sent to [facility]. Rocephin 1 g given IM in ER. Encouraged close follow- up with her PCP. She is in agreement with today's plan. All questions are answered and concerns are addressed.] Definitive disposition and diagnosis as appropriate pending reevaluation and review of above. Pelvic Pain Score (Numeric/FACES): 7 - Related Data Allergies Allergy/AdvReac Type Severity Reaction Status Date / Time metronidazole Allergy Cannot Verified 01/07/18 11:29 Remember morphine Allergy Nausea and Verified 01/07/18 11:29 Vomiting Penicillins Allergy Swelling Verified 01/07/18 11:29 propoxyphene HCl Allergy Drowsiness Verified 01/07/18 11:29 [From Denita] Home Meds: Home Meds Venlafaxine [Effexor XR] 150 mg PO QPM 06/15/14 [History] rOPINIRole [Requip] 0 tab PO BEDTIME 06/15/14 [History] Amitriptyline HCl 75 mg PO BEDTIME 01/20/17 [History] Aspirin [Adult Low Dose Aspirin EC] 81 mg PO DAILY 01/20/17 [History] Latanoprost [Xalatan 0.005% Ophth Soln] 1 drop EYEBOTH BID 01/20/17 [History] Multivitamin [Daily Multiple Vitamin] 1 tab PO DAILY 01/20/17 [History] Venlafaxine [Effexor] 37.5 mg PO QPM 01/20/17 [History] clonazePAM [Klonopin] 0.5 tab PO TID 01/20/17 [History] metFORMIN [Glucophage XR] 0 mg PO BID 01/20/17 [History] Nitrofurantoin Monohyd/M-Cryst [Macrobid 100 mg Capsule] 100 mg PO BID #20 capsule 04/21/17 [Rx] Past Medical History HEENT History: Reports: Glaucoma, Hard of Hearing, Impaired Vision Other HEENT History: wears glasses, has upper denture and lower partial removable denture Cardiovascular History: Reports: High Cholesterol Respiratory History: Reports: Bronchitis, Recurrent Gastrointestinal History: Reports: Hepatitis Other Gastrointestinal History: Autoimmune Hepatitis, was treated with Prednisone for 2 years- liver now ok per patient 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: Reports: None 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: Musculoskeletal History: Reports: Arthritis, Back Pain, Chronic, Fracture Other Musculoskeletal History: hx of fx foot Neurological History: Reports: Migraines, Other (See Below) Other Neuro History: HX of restless leg syndrome Psychiatric History: Reports: Anxiety, Depression Endocrine/Metabolic History: Reports: Diabetes, Type II, Obesity/BMI 30+ Other Endocrine/Metabolic History: recent dx of diabetes Hematologic History: Reports: None Immunologic History: Reports: None Oncologic (Cancer) History: Reports: None Dermatologic History: Reports: Other (See Below) Other Dermatologic History: rash on right arm and and legs - Infectious Disease History Infectious Disease History: Reports: Chicken Pox, Measles, Mumps Other Infectious Disease History: Autoiimune hepatitis - Past Surgical History HEENT Surgical History: Reports: Tonsillectomy, Other (See Below) Female Surgical History: Reports: Hysterectomy, Other (See Below) Neurological Surgical History: Reports: Spinal Fusion Musculoskeletal Surgical History: Reports: Knee Replacement Social & Family History - Family History Family Medical History: Noncontributory Cardiac: Reports: High Cholesterol, [place] - Tobacco Use Smoking Status *Q: Never Smoker Second Hand Smoke Exposure: No - Caffeine Use Caffeine Use: Reports: None - Alcohol Use Days Per Week of Alcohol Use: 0 - Recreational Drug Use Recreational Drug Use: No Drug Use in Last 12 Months: No ED ROS GENERAL - Review of Systems Review Of Systems: ROS reveals no pertinent complaints other than HPI. ED EXAM, RENAL/ - Physical Exam Exam: See Below Course - Vital Signs Last Recorded V/S: Last Vital Signs Temp 97.6 F 01/07/18 11:26 Pulse 90 01/07/18 11:26 Resp 16 01/07/18 11:26 BP 120/63 01/07/18 11:26 Pulse Ox 97 01/07/18 11:26 - Orders/Labs/Meds Orders: Active Orders 24 hr Category Date Time Status CULTURE URINE [RM] Stat Lab 01/07/18 11:17 Received Labs: Laboratory Tests 01/07/18 Range/Units 11:17 Urine Color RED Urine Appearance CLOUDY Urine pH 6.0 (5.0-8.0) Ur Specific Lacey >= 1.030 (1.001-1.035) Urine Protein >=300 (NEGATIVE) mg/dL Urine Glucose (UA) NEGATIVE (NEGATIVE) mg/dL Urine Ketones TRACE H (NEGATIVE) mg/dL Urine Occult Blood LARGE H (NEGATIVE) Urine Nitrite NEGATIVE (NEGATIVE) Urine Bilirubin NEGATIVE (NEGATIVE) Urine Urobilinogen 0.2 (<2.0) EU/dL Ur Leukocyte Esterase TRACE (NEGATIVE) Urine RBC TOO NUMBEROUS TO CT H (0-2/HPF) Urine WBC 2-3 (0-5/HPF) Ur Epithelial Cells FEW (NONE-FEW) Amorphous Sediment FEW (NEGATIVE) Urine Bacteria FEW (NEGATIVE) Departure - Departure Time of Disposition: 12:20 Disposition: Home, Self-Care 01 Condition: Good Clinical Impression: UTI, Urinary tract infectious disease - Discharge Information Referrals: Florian Iqbal MD [Primary Care Provider] - Forms: ED Department Discharge Additional Instructions: The following information is given to patients seen in the emergency department who are being discharged to home. This information is to outline your options for follow-up care. We provide all patients seen in our emergency department with a follow-up referral. The need for follow-up, as well as the timing and circumstances, are variable depending upon the specifics of your emergency department visit. If you don't have a primary care physician on staff, we will provide you with a referral. We always advise you to contact your personal physician following an emergency department visit to inform them of the circumstance of the visit and for follow-up with them and/or the need for any referrals to a consulting specialist. The emergency department will also refer you to a specialist when appropriate. This referral assures that you have the opportunity for follow-up care with a specialist. All of these measure are taken in an effort to provide you with optimal care, which includes your follow-up. Under all circumstances we always encourage you to contact your private physician who remains a resource for coordinating your care. When calling for follow-up care, please make the office aware that this follow-up is from your recent emergency room visit. If for any reason you are refused follow-up, please contact the [facility] emergency department at and asked to speak to the emergency department charge nurse. [facility] [address] [place] [phone] Follow-up with her local primary care provider or at the clinic listed above in 48-72 hours. Take antibiotics as prescribed. Push fluids. Return to ER as needed as discussed. - My Orders Last 24 Hours: My Active Orders 01/07/18 11:17 CULTURE URINE [RM] Stat - Assessment/Plan Last 24 Hours: My Active Orders 01/07/18 11:17 CULTURE URINE [RM] Stat
[2018-01-07] MEDS ORDERED: cefTRIAXone 1,000 MG in Lidocaine 1% 4 ML IM ONE (12:17)
== END 2018-01-07 12:57 | disposition home or self-care (01) ==
LOC: MW.ED 11:04
DX: N39.0 Urinary tract infection, site not specified (principal); E78.00 Pure hypercholesterolemia, unspecified; E11.9 Type 2 diabetes mellitus without complications; E66.9 Obesity, unspecified; F41.9 Anxiety disorder, unspecified; F32.9 Major depressive disorder, single episode, unspecified; Z88.8 Allergy status to other drugs, medicaments and biological substances; Z88.0 Allergy status to penicillin; Z79.82 Long term (current) use of aspirin; Z79.84 Long term (current) use of oral hypoglycemic drugs; Z79.899 Other long term (current) drug therapy; Z68.35 Body mass index [BMI] 35.0-35.9, adult
CPT/HCPCS: 81001; 87086; 96372; 99283; J0696; J2001

== ENCOUNTER 2018-04-27 20:03 | Emergency (ER) | payer MEDICARE, OTHER ==
--- NOTE | 2018-04-27 20:12 | EDM.PDOC ---
ED HPI GENERAL MEDICAL PROBLEM - General Stated Complaint: BLADDER INFECTION Time Seen by Provider: 04/27/18 20:11 Source of Information: Reports: Patient History Limitations: Reports: No Limitations - History of Present Illness INITIAL COMMENTS - FREE TEXT/NARRATIVE: HISTORY AND PHYSICAL: History of present illness: 83-year-old female presenting to emergency department with chief complaint of dysuria 2 days with past medical history of type 2 diabetes. Patient states that approximately 2 days ago she noticed some blood in her urine and has had increasing dysuria since then. She reports no associated fever , chills, nausea, vomiting, or diarrhea. She does note that she was on Bactrim at one time which interacted with her metformin that she takes for diabetes and had a allergic type of reaction. She denies any back pain or history of kidney stones. She sees Dr. Iqbal as her primary care provider. Currently denies any chest pain, palpitations, shortness of breath, syncopal episodes, or focal neurologic episodes. Patient is sitting comfortably nontoxic appearing and relaxed. Review of systems: As per history of present illness and below otherwise all systems reviewed and negative. Past medical history: As per history of present illness and as reviewed below otherwise noncontributory. Surgical history: As per history of present illness and as reviewed below otherwise noncontributory. Social history: No reported history of drug or alcohol abuse. Family history: As per history of present illness and as reviewed below otherwise noncontributory. Physical exam: HEENT: Atraumatic, normocephalic, pupils reactive, negative for conjunctival pallor or scleral icterus, mucous membranes moist, throat clear, neck supple, nontender, trachea midline. Lungs: Clear to auscultation, breath sounds equal bilaterally, chest nontender. Heart: S1S2, regular, negative for clicks, rubs, or JVD. Abdomen: Soft, nondistended, mild suprapubic tenderness. Negative for masses or hepatosplenomegaly. Negative for costovertebral tenderness. Pelvis: Stable nontender. Genitourinary: Deferred. Rectal: Deferred. Extremities: Atraumatic, negative for cords or calf pain. Neurovascular unremarkable. Neuro: Awake, alert, oriented. Cranial nerves II through XII unremarkable. Cerebellum unremarkable. Motor and sensory unremarkable throughout. Exam nonfocal. Diagnostics: CBC, BMP, UA/UC Therapeutics: Nitrofurantoin Impression: Acute cystitis Dysuria Hematuria Plan: CBC showed some mild leukocytosis at 11.3. BMP did show some mild hyponatremia 134 most likely secondary to some dehydration. Talked to the patient that she should continue to push fluids. She has remained afebrile and is not having any signs of systemic infection. Secondary to her allergies I did give her prescription for nitrofurantoin 100 Milligram by mouth twice a day 5 days. Also instructed her to follow-up with her primary care provider and return to emergency department should she have any new or worsening symptoms. Definitive disposition and diagnosis as appropriate pending reevaluation and review of above. - Related Data Allergies Allergy/AdvReac Type Severity Reaction Status Date / Time metronidazole Allergy Cannot Verified 01/07/18 11:29 Remember morphine Allergy Nausea and Verified 01/07/18 11:29 Vomiting Penicillins Allergy Swelling Verified 01/07/18 11:29 propoxyphene HCl Allergy Drowsiness Verified 01/07/18 11:29 [From Darvon] sulfamethoxazole Allergy Rash Verified 04/27/18 20:21 [From Bactrim] trimethoprim [From Bactrim] Allergy Rash Verified 04/27/18 20:21 Home Meds: Home Meds Venlafaxine [Effexor XR] 150 mg PO QPM 06/15/14 [History] rOPINIRole [Requip] 3 tab PO ASDIRECTED 06/15/14 [History] Amitriptyline HCl 75 mg PO BEDTIME 01/20/17 [History] Latanoprost [Xalatan 0.005% Ophth Soln] 1 drop EYEBOTH BID 01/20/17 [History] Multivitamin [Daily Multiple Vitamin] 1 tab PO DAILY 01/20/17 [History] Venlafaxine [Effexor] 37.5 mg PO QPM 01/20/17 [History] clonazePAM [Klonopin] 0.5 tab PO TID PRN 01/20/17 [History] metFORMIN [Glucophage XR] 500 mg PO BID 01/20/17 [History] Melatonin 5 mg PO BEDTIME 04/27/18 [History] Past Medical History HEENT History: Reports: Glaucoma, Hard of Hearing, Impaired Vision Other HEENT History: wears glasses, has upper denture and lower partial removable denture Cardiovascular History: Reports: High Cholesterol Respiratory History: Reports: Bronchitis, Recurrent Gastrointestinal History: Reports: Hepatitis Other Gastrointestinal History: Autoimmune Hepatitis, was treated with Prednisone for 2 years- liver now ok per patient 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: 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: 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: Musculoskeletal History: Reports: Arthritis, Back Pain, Chronic, Fracture Other Musculoskeletal History: hx of fx foot Neurological History: Reports: Migraines, Other (See Below) Other Neuro History: HX of restless leg syndrome Psychiatric History: Reports: Anxiety, Depression Endocrine/Metabolic History: Reports: Diabetes, Type II, Obesity/BMI 30+ Other Endocrine/Metabolic History: recent dx of diabetes Hematologic History: Reports: None Immunologic History: Reports: None Oncologic (Cancer) History: Reports: None Dermatologic History: Reports: Other (See Below) Other Dermatologic History: rash on right arm and and legs - Infectious Disease History Infectious Disease History: Reports: Chicken Pox, Measles, Mumps Other Infectious Disease History: Autoiimune hepatitis - Past Surgical History HEENT Surgical History: Reports: Tonsillectomy, Other (See Below) Female Surgical History: Reports: Hysterectomy, Other (See Below) Neurological Surgical History: Reports: Spinal Fusion Musculoskeletal Surgical History: Reports: Knee Replacement Social & Family History - Family History Family Medical History: Noncontributory Cardiac: Reports: High Cholesterol, [place] - Caffeine Use Caffeine Use: Reports: None ED ROS GENERAL - Review of Systems Review Of Systems: ROS reveals no pertinent complaints other than HPI. ED EXAM, GENERAL - Physical Exam Exam: See Below Course - Vital Signs Last Recorded V/S: Last Vital Signs Temp 96.5 F 04/27/18 20:15 Pulse 116 H 04/27/18 20:15 Resp 22 H 04/27/18 20:15 BP 147/84 H 04/27/18 20:15 Pulse Ox 96 04/27/18 20:15 - Orders/Labs/Meds Orders: Active Orders 24 hr Category Date Time Status CULTURE URINE [RM] Stat Lab 04/27/18 20:50 Ordered UA W/MICROSCOPIC [URIN] Stat Lab 04/27/18 20:50 Ordered Labs: Laboratory Tests 04/27/18 04/27/18 04/27/18 Range/Units 20:38 20:38 20:50 WBC 11.33 H (4.0-11.0) K/uL RBC 4.14 L (4.30-5.90) M/uL Hgb 12.7 (12.0-16.0) g/dL Hct 38.3 (36.0-46.0) % MCV 92.5 (80.0-98.0) fL MCH 30.7 (27.0-32.0) pg MCHC 33.2 (31.0-37.0) g/dL RDW Std Deviation 46.9 (28.0-62.0) fl RDW Coeff of Angel 14 (11.0-15.0) % Plt Count 260 (150-400) K/uL MPV 10.20 (7.40-12.00) fL Neut % (Auto) 61.9 (48.0-80.0) % Lymph % (Auto) 29.7 (16.0-40.0) % [place] % (Auto) 4.9 (0.0-15.0) % Eos % (Auto) 3.3 (0.0-7.0) % Baso % (Auto) 0.2 (0.0-1.5) % Neut # (Auto) 7.0 H (1.4-5.7) K/uL Lymph # (Auto) 3.4 H (0.6-2.4) K/uL [place] # (Auto) 0.6 (0.0-0.8) K/uL Eos # (Auto) 0.4 (0.0-0.7) K/uL Baso # (Auto) 0.0 (0.0-0.1) K/uL Nucleated RBC % 0.0 /100WBC Nucleated RBCs # 0 K/uL Sodium 134 L (136-145) mmol/L Potassium 4.2 (3.5-5.1) mmol/L Chloride 100 (98-107) mmol/L Carbon Dioxide 26.3 (21.0-32.0) mmol/L BUN 19 H (7.0-18.0) mg/dL Creatinine 1.1 H (0.6-1.0) mg/dL Est Cr Clr Drug Dosing 33.65 mL/min Estimated GFR (MDRD) 47.2 ml/min Glucose 150 H (74-106) mg/dL Calcium 9.7 (8.5-10.1) mg/dL Urine Color RED Urine Appearance BLOODY Urine pH 7.0 (5.0-8.0) Ur Specific Jamieson 1.020 (1.001-1.035) Urine Protein >=300 (NEGATIVE) mg/dL Urine Glucose (UA) NEGATIVE (NEGATIVE) mg/dL Urine Ketones NEGATIVE (NEGATIVE) mg/dL Urine Occult Blood LARGE H (NEGATIVE) Urine Nitrite NEGATIVE (NEGATIVE) Urine Bilirubin NEGATIVE (NEGATIVE) Urine Urobilinogen 0.2 (<2.0) EU/dL Ur Leukocyte Esterase TRACE (NEGATIVE) Urine RBC TOO NUMEROUS TO CT H (0-2/HPF) Urine WBC 4-6 (0-5/HPF) Ur Epithelial Cells FEW (NONE-FEW) Urine Bacteria FEW (NEGATIVE) Urinalysis Comment Departure - Departure Time of Disposition: 21:21 Disposition: Home, Self-Care 01 Condition: Good Clinical Impression: Acute cystitis with hematuria, Dysuria - Discharge Information *PRESCRIPTION DRUG MONITORING PROGRAM REVIEWED*: Not Applicable *COPY OF PRESCRIPTION DRUG MONITORING REPORT IN PATIENT NAOMI: Not Applicable Referrals: PCP,None [Primary Care Provider] - Additional Instructions: My general discharge The following information is given to patients seen in the emergency department who are being discharged to home. This information is to outline your options for follow-up care. We provide all patients seen in our emergency department with a follow-up referral. The need for follow-up, as well as the timing and circumstances, are variable depending upon the specifics of your emergency department visit. If you don't have a primary care physician on staff, we will provide you with a referral. We always advise you to contact your personal physician following an emergency department visit to inform them of the circumstance of the visit and for follow-up with them and/or the need for any referrals to a consulting specialist. The emergency department will also refer you to a specialist when appropriate. This referral assures that you have the opportunity for follow-up care with a specialist. All of these measure are taken in an effort to provide you with optimal care, which includes your follow-up. Under all circumstances we always encourage you to contact your private physician who remains a resource for coordinating your care. When calling for follow-up care, please make the office aware that this follow-up is from your recent emergency room visit. If for any reason you are refused follow-up, please contact the [facility] Emergency Department at and asked to speak to the emergency department charge nurse. [facility] [address] [place] [id number] Follow-up with Dr. Iqbal as we discussed. Take medications as prescribed. Return to emergency department if any new or worsening symptoms. - My Orders Last 24 Hours: My Active Orders 04/27/18 20:50 CULTURE URINE [RM] Stat UA W/MICROSCOPIC [URIN] Stat - Assessment/Plan Last 24 Hours: My Active Orders 04/27/18 20:50 CULTURE URINE [RM] Stat UA W/MICROSCOPIC [URIN] Stat
[2018-04-27 21:29] VITALS: BP 130/70
== END 2018-04-27 21:25 | disposition home or self-care (01) ==
LOC: MW.ED 20:03
DX: N30.01 Acute cystitis with hematuria (principal); R30.0 Dysuria; E11.9 Type 2 diabetes mellitus without complications; E78.00 Pure hypercholesterolemia, unspecified; F41.9 Anxiety disorder, unspecified; F32.9 Major depressive disorder, single episode, unspecified; Z79.84 Long term (current) use of oral hypoglycemic drugs; Z79.899 Other long term (current) drug therapy; Z88.5 Allergy status to narcotic agent; Z88.0 Allergy status to penicillin; Z88.8 Allergy status to other drugs, medicaments and biological substances; Z88.1 Allergy status to other antibiotic agents; Z88.2 Allergy status to sulfonamides
CPT/HCPCS: 36415; 80048; 81001; 85025; 87086; 87088; 87186; 99283

== ENCOUNTER 2018-06-04 09:06 | Emergency (ER) | payer MEDICARE, OTHER ==
--- NOTE | 2018-06-04 09:28 | EDM.PDOC ---
ED HPI GENERAL MEDICAL PROBLEM - General Chief Complaint: Genitourinary Problem Stated Complaint: POSSIBLE UTI Time Seen by Provider: 06/04/18 09:26 - History of Present Illness INITIAL COMMENTS - FREE TEXT/NARRATIVE: HISTORY AND PHYSICAL: History of present illness: She is a 83-year-old female who presents with complaints of urgency frequency dysuria and some hematuria and is concerned she has a UTI. The patient was seen here on April 27 in the ED and did have a UA and urine culture and was treated with Cipro and I pulled the culture report which yielded Klebsiella Escherichia coli UTI. The patient states that she was treated with Cipro and did not follow- up in the clinic as she was feeling better but does have an appointment with Dr. Grant the urologist in June to discuss her urinary incontinence which is not new or different today. The patient denies any flank pain and has no kidney disease or kidney stone history. She's had no fevers chills nausea vomiting but she has had some diarrhea yesterday that she thinks may have caused the UTI. She has no suprapubic pain or abdominal discomfort and has been eating and drinking normally. She says that all the symptoms she is having now feel like her UTIs. Review of systems: As per history of present illness and below otherwise all systems reviewed and negative. Past medical history: As per history of present illness and as reviewed below otherwise noncontributory. Surgical history: As per history of present illness and as reviewed below otherwise noncontributory. Social history: No reported history of drug or alcohol abuse. Family history: As per history of present illness and as reviewed below otherwise noncontributory. Physical exam: General: Well-developed well-nourished female who is nontoxic and ambulatory in the ED. Vital signs are reviewed by me HEENT: Atraumatic, normocephalic, negative for conjunctival pallor or scleral icterus, mucous membranes moist, throat clear, neck supple, nontender, trachea midline. Lungs: Clear to auscultation, breath sounds equal bilaterally, chest nontender. Heart: S1S2, regular rate and rhythm no overt murmurs Abdomen: Soft, nondistended, nontender. NABS Negative for costovertebral tenderness. Pelvis: Deferred Genitourinary: Deferred. Rectal: Deferred. Extremities: Atraumatic, negative for cords or calf pain. Neurovascular unremarkable. Neuro: Awake, alert, oriented. Cranial nerves II through XII unremarkable. Cerebellum unremarkable. Motor and sensory unremarkable throughout. Exam nonfocal. Diagnostics: UA urine culture She was offered lab tests and other evaluation which she defers as she feels this is just a simple UTI. Therapeutics: [] Impression: UTI Definitive disposition and diagnosis as appropriate pending reevaluation and review of above. - Related Data Allergies Allergy/AdvReac Type Severity Reaction Status Date / Time metronidazole Allergy Cannot Verified 06/04/18 09:17 Remember morphine Allergy Nausea and Verified 06/04/18 09:17 Vomiting Penicillins Allergy Swelling Verified 06/04/18 09:17 propoxyphene HCl Allergy Drowsiness Verified 06/04/18 09:17 [From Darvon] sulfamethoxazole Allergy Rash Verified 06/04/18 09:17 [From Bactrim] trimethoprim [From Bactrim] Allergy Rash Verified 06/04/18 09:17 Home Meds: Home Meds Venlafaxine [Effexor XR] 150 mg PO QPM 06/15/14 [History] rOPINIRole [Requip] 3 tab PO ASDIRECTED 06/15/14 [History] Amitriptyline HCl 75 mg PO BEDTIME 01/20/17 [History] Latanoprost [Xalatan 0.005% Ophth Soln] 1 drop EYEBOTH BID 01/20/17 [History] Multivitamin [Daily Multiple Vitamin] 1 tab PO DAILY 01/20/17 [History] Venlafaxine [Effexor] 37.5 mg PO QPM 01/20/17 [History] clonazePAM [Klonopin] 0.5 tab PO TID PRN 01/20/17 [History] metFORMIN [Glucophage XR] 500 mg PO BID 01/20/17 [History] Melatonin 5 mg PO BEDTIME 04/27/18 [History] Past Medical History HEENT History: Reports: Glaucoma, Hard of Hearing, Impaired Vision Other HEENT History: wears glasses, has upper denture and lower partial removable denture Cardiovascular History: Reports: High Cholesterol Respiratory History: Reports: Bronchitis, Recurrent Gastrointestinal History: Reports: Hepatitis Other Gastrointestinal History: Autoimmune Hepatitis, was treated with Prednisone for 2 years- liver now ok per patient 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: Reports: None [employer] History: Reports: Musculoskeletal History: Reports: Arthritis, Back Pain, Chronic, Fracture Other Musculoskeletal History: hx of fx foot Neurological History: Reports: Migraines, Other (See Below) Other Neuro History: HX of restless leg syndrome Psychiatric History: Reports: Anxiety, Depression Endocrine/Metabolic History: Reports: Diabetes, Type II, Obesity/BMI 30+ Other Endocrine/Metabolic History: recent dx of diabetes Hematologic History: Reports: None Immunologic History: Reports: None Oncologic (Cancer) History: Reports: None Dermatologic History: Reports: Other (See Below) Other Dermatologic History: rash on right arm and and legs - Infectious Disease History Infectious Disease History: Reports: Chicken Pox, Hepatitis non A,B,C, Measles, Mumps Other Infectious Disease History: Autoiimune hepatitis - Past Surgical History HEENT Surgical History: Reports: Tonsillectomy, Other (See Below) Female Surgical History: Reports: Hysterectomy, Other (See Below) Neurological Surgical History: Reports: Spinal Fusion Musculoskeletal Surgical History: Reports: Knee Replacement Social & Family History - Family History Family Medical History: Noncontributory Cardiac: Reports: High Cholesterol, [place] - Tobacco Use Smoking Status *Q: Never Smoker - Caffeine Use Caffeine Use: Reports: Coffee, Tea - Recreational Drug Use Recreational Drug Use: No ED ROS GENERAL - Review of Systems Review Of Systems: ROS reveals no pertinent complaints other than HPI. ED EXAM, GENERAL - Physical Exam Exam: See Below (See dictation) Course - Vital Signs Last Recorded V/S: Last Vital Signs Temp 36.1 C 06/04/18 09:15 Pulse 99 06/04/18 09:15 Resp 18 06/04/18 09:15 BP 121/60 06/04/18 09:15 Pulse Ox 97 06/04/18 09:15 - Orders/Labs/Meds Orders: Active Orders 24 hr Category Date Time Status CULTURE URINE [RM] Stat Lab 06/04/18 09:23 Received UA W/MICROSCOPIC [URIN] Stat Lab 06/04/18 09:23 Ordered Labs: Laboratory Tests 06/04/18 Range/Units 09:23 Urine Color YELLOW Urine Appearance SLT CLOUDY Urine pH 6.0 (5.0-8.0) Ur Specific [place] 1.015 (1.001-1.035) Urine Protein TRACE (NEGATIVE) mg/dL Urine Glucose (UA) NEGATIVE (NEGATIVE) mg/dL Urine Ketones NEGATIVE (NEGATIVE) mg/dL Urine Occult Blood MODERATE (NEGATIVE) Urine Nitrite NEGATIVE (NEGATIVE) Urine Bilirubin NEGATIVE (NEGATIVE) Urine Urobilinogen 0.2 (<2.0) EU/dL Ur Leukocyte Esterase MODERATE (NEGATIVE) Urine RBC 0-2 (0-2/HPF) Urine WBC 15-25 (0-5/HPF) Ur Epithelial Cells MODERATE (NONE-FEW) Urine Bacteria 1+ H (NEGATIVE) Departure - Departure Time of Disposition: 10:19 Disposition: Home, Self-Care 01 Condition: Good Clinical Impression: UTI, Urinary tract infectious disease - Discharge Information Instructions: Urinary Tract Infection, Adult Referrals: Florian Iqbal MD [Primary Care Provider] - Forms: ED Department Discharge Additional Instructions: The following information is given to patients seen in the emergency department who are being discharged to home. This information is to outline your options for follow-up care. We provide all patients seen in our emergency department with a follow-up referral. The need for follow-up, as well as the timing and circumstances, are variable depending upon the specifics of your emergency department visit. If you don't have a primary care physician on staff, we will provide you with a referral. We always advise you to contact your personal physician following an emergency department visit to inform them of the circumstance of the visit and for follow-up with them and/or the need for any referrals to a consulting specialist. The emergency department will also refer you to a specialist when appropriate. This referral assures that you have the opportunity for followup care with a specialist. All of these measure are taken in an effort to provide you with optimal care, which includes your followup. Under all circumstances we always encourage you to contact your private physician who remains a resource for coordinating your care. When calling for followup care, please make the office aware that this follow-up is from your recent emergency room visit. If for any reason you are refused follow-up, please contact the [facility] emergency department at and ask to speak to the emergency department charge nurse. [facility] Primary care- Internal Medicine and Family [address] [id number] Please keep all scheduled appointments with the urologist as you have for your more chronic problems and take antibiotics as directed. Please call and schedule a follow-up appointment in the clinic with your provider for reevaluation of the symptoms. Push hydration and rest. He will be contacted if the urine culture reveals any need for antibiotic change. Return to ER as needed and as discussed - My Orders Last 24 Hours: My Active Orders 06/04/18 09:23 CULTURE URINE [RM] Stat UA W/MICROSCOPIC [URIN] Stat - Assessment/Plan Last 24 Hours: My Active Orders 06/04/18 09:23 CULTURE URINE [RM] Stat UA W/MICROSCOPIC [URIN] Stat
[2018-06-04 09:30] VITALS: BP 121/60
== END 2018-06-04 10:31 | disposition home or self-care (01) ==
LOC: MW.ED 09:06
DX: N39.0 Urinary tract infection, site not specified (principal); E11.9 Type 2 diabetes mellitus without complications; E66.9 Obesity, unspecified; Z88.0 Allergy status to penicillin; Z88.2 Allergy status to sulfonamides; Z79.84 Long term (current) use of oral hypoglycemic drugs; Z79.899 Other long term (current) drug therapy; Z88.5 Allergy status to narcotic agent
CPT/HCPCS: 81001; 87086; 87088; 87186; 99283

== ENCOUNTER 2019-04-07 16:05 | Emergency (ER) | payer MEDICARE, OTHER ==
--- NOTE | 2019-04-07 16:42 | EDM.PDOC ---
ED HPI GENERAL MEDICAL PROBLEM - General Chief Complaint: General Stated Complaint: HEADACHE Time Seen by Provider: 04/07/19 16:22 Source of Information: Reports: Patient History Limitations: Reports: No Limitations - History of Present Illness INITIAL COMMENTS - FREE TEXT/NARRATIVE: HISTORY AND PHYSICAL: History of present illness: Patient reports that she noticed some lesions and a rash to the right side of her face starting on Monday. She did see her primary care provider who put her on clindamycin. She states that the rash is becoming painful and feels like the pain is traveling up her scalp into her head and is causing a headache. She has been taking the clindamycin as directed with out any improvement of the rash type lesions on her face. Patient denies any fever, chills, headache, change in vision, syncope or near syncope. Denies any chest pain, back pain, shortness of breath or cough. Denies any abdominal pain, nausea, vomiting, diarrhea, constipation or dysuria. Patient has been eating and drinking appropriately. She denies any recent head injury, trauma or falls. Reports she has had the shingles vaccination "many years ago". Review of systems: As per history of present illness and below otherwise all systems reviewed and negative. Past medical history: As per history of present illness and as reviewed below otherwise noncontributory. Surgical history: As per history of present illness and as reviewed below otherwise noncontributory. Social history: See social history for further information Family history: As per history of present illness and as reviewed below otherwise noncontributory. Physical exam: General: Well-developed and well nourished 83-year-old female. Alert and oriented. Nontoxic appearing and in no acute distress. HEENT: Atraumatic, normocephalic, pupils equal and reactive bilaterally, negative for conjunctival pallor or scleral icterus, mucous membranes moist, TMs normal bilaterally, throat clear, neck supple, nontender, trachea midline. No drooling or trismus noted. No meningeal signs. No hot potato voice noted. Lungs: Clear to auscultation, breath sounds equal bilaterally, chest nontender. Heart: S1S2, regular rate and rhythm without overt murmur Abdomen: Soft, nondistended, nontender. Negative for masses or hepatosplenomegaly. Negative for costovertebral tenderness. Pelvis: Stable nontender. Genitourinary: Deferred. Rectal: Deferred. Skin: Vesicular rash noted above the right lip, below the right eye and above the right eyelid. Otherwise there is some diffuse erythema to the right cheekbone. Remainder of skin is intact, warm, dry. No lesions or rashes noted. Extremities: Atraumatic, moves all extremities per self without difficulty or deficits, negative for cords or calf pain. Neurovascular unremarkable. Neuro: Awake, alert, oriented. Cranial nerves II through XII unremarkable. Cerebellum unremarkable. Motor and sensory unremarkable throughout. Exam nonfocal. Notes: The shingles rash does not appear to be affecting the eye. Patient states she does have a history of glaucoma. Has not had any visual changes. Due to the patient's headache (no previous hx of migraines/headache) and age I will do lab work along with a head CT. Lab work is unremarkable. Head CT shows no acute findings. Did call Dr. Chacon, general accounting clerk at [facility], he will see this patient tomorrow morning at 8 AM for further evaluation. Supportive care measures were reviewed and discussed. Voices understanding and is agreeable to plan of care. Denies any further questions or concerns at this time. Diagnostics: CBC, BMP, Head CT Therapeutics: Valacyclovir Tramadol Prescription: Valacyclovir Tramadol Impression: Shingles Plan: 1. We have made to an appointment with the general accounting clerk at [facility] for 8 AM Monday (04/08/2019: Tomorrow) with Dr Chacon. 2. Please take the medications as prescribed. Tramadol for moderate to severe pain. This medication may cause drowsiness a do not take it will driving her needing to be functioning outside of the house. 3. Please follow-up with your primary care provider to make sure that this resolves. Return to the ED as needed and as discussed. Definitive disposition and diagnosis as appropriate pending reevaluation and review of above. Right Face/Facial Pain Score (Numeric/FACES): 5 - Related Data Allergies Allergy/AdvReac Type Severity Reaction Status Date / Time metronidazole Allergy Cannot Verified 04/07/19 16:25 Remember morphine Allergy Nausea and Verified 04/07/19 16:25 Vomiting Penicillins Allergy Swelling Verified 04/07/19 16:25 propoxyphene HCl Allergy Drowsiness Verified 04/07/19 16:25 [From Darvon] sulfamethoxazole Allergy Rash Verified 04/07/19 16:25 [From Bactrim] trimethoprim [From Bactrim] Allergy Rash Verified 04/07/19 16:25 Home Meds: Home Meds Venlafaxine [Effexor XR] 150 mg PO QPM 06/15/14 [History] rOPINIRole [Requip] 3 tab PO ASDIRECTED 06/15/14 [History] Amitriptyline HCl 75 mg PO BEDTIME 01/20/17 [History] Latanoprost [Xalatan 0.005% Ophth Soln] 1 drop EYEBOTH BID 01/20/17 [History] Multivitamin [Daily Multiple Vitamin] 1 tab PO DAILY 01/20/17 [History] Venlafaxine [Effexor] 37.5 mg PO QPM 01/20/17 [History] clonazePAM [Klonopin] 0.5 tab PO TID PRN 01/20/17 [History] metFORMIN [Glucophage XR] 500 mg PO BID 01/20/17 [History] Melatonin 5 mg PO BEDTIME 04/27/18 [History] Past Medical History HEENT History: Reports: Glaucoma, Hard of Hearing, Impaired Vision Other HEENT History: wears glasses, has upper denture and lower partial removable denture Cardiovascular History: Reports: High Cholesterol Respiratory History: Reports: Bronchitis, Recurrent Gastrointestinal History: Reports: Hepatitis Other Gastrointestinal History: Autoimmune Hepatitis, was treated with Prednisone for 2 years- liver now ok per patient 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: Reports: None REHABILITATION SPECIALIST History: Reports: Musculoskeletal History: Reports: Arthritis, Back Pain, Chronic, Fracture Other Musculoskeletal History: hx of fx foot Neurological History: Reports: Migraines, Other (See Below) Other Neuro History: HX of restless leg syndrome Psychiatric History: Reports: Anxiety, Depression Endocrine/Metabolic History: Reports: Diabetes, Type II, Obesity/BMI 30+ Other Endocrine/Metabolic History: recent dx of diabetes Hematologic History: Reports: None Immunologic History: Reports: None Oncologic (Cancer) History: Reports: None Dermatologic History: Reports: Other (See Below) Other Dermatologic History: rash on right arm and and legs - Infectious Disease History Infectious Disease History: Reports: Chicken Pox, Hepatitis non A,B,C, Measles, Mumps Other Infectious Disease History: Autoiimune hepatitis - Past Surgical History HEENT Surgical History: Reports: Tonsillectomy, Other (See Below) Female Surgical History: Reports: Hysterectomy, Other (See Below) Neurological Surgical History: Reports: Spinal Fusion Musculoskeletal Surgical History: Reports: Knee Replacement Social & Family History - Family History Family Medical History: Noncontributory Cardiac: Reports: High Cholesterol, [place] - Tobacco Use Smoking Status *Q: Never Smoker Second Hand Smoke Exposure: No - Caffeine Use Caffeine Use: Reports: None - Recreational Drug Use Recreational Drug Use: No ED ROS GENERAL - Review of Systems Review Of Systems: ROS reveals no pertinent complaints other than HPI. ED EXAM, GENERAL - Physical Exam Exam: See Below (See dictation) Course - Vital Signs Last Recorded V/S: Last Vital Signs Temp 96.6 F 04/07/19 16:21 Pulse 82 04/07/19 16:21 Resp 20 04/07/19 16:21 BP 150/87 H 04/07/19 16:21 Pulse Ox 95 04/07/19 16:21 - Orders/Labs/Meds Orders: Active Orders 24 hr Category Date Time Status Head wo Cont [CT] Stat Exams 04/07/19 16:36 Taken Labs: Laboratory Tests 04/07/19 04/07/19 Range/Units 16:42 16:42 WBC 9.77 (4.0-11.0) K/uL RBC 4.42 (4.30-5.90) M/uL Hgb 13.5 (12.0-16.0) g/dL Hct 41.3 (36.0-46.0) % MCV 93.4 (80.0-98.0) fL MCH 30.5 (27.0-32.0) pg MCHC 32.7 (31.0-37.0) g/dL RDW Std Deviation 48.2 (28.0-62.0) fl RDW Coeff of Angel 14 (11.0-15.0) % Plt Count 249 (150-400) K/uL MPV 10.00 (7.40-12.00) fL Neut % (Auto) 60.0 (48.0-80.0) % Lymph % (Auto) 28.5 (16.0-40.0) % [place]field % (Auto) 6.8 (0.0-15.0) % Eos % (Auto) 4.2 (0.0-7.0) % Baso % (Auto) 0.5 (0.0-1.5) % Neut # (Auto) 5.9 H (1.4-5.7) K/uL Lymph # (Auto) 2.8 H (0.6-2.4) K/uL Garfield # (Auto) 0.7 (0.0-0.8) K/uL Eos # (Auto) 0.4 (0.0-0.7) K/uL Baso # (Auto) 0.1 (0.0-0.1) K/uL Nucleated RBC % 0.0 /100WBC Nucleated RBCs # 0 K/uL Sodium 138 (136-145) mmol/L Potassium 4.5 (3.5-5.1) mmol/L Chloride 102 (98-107) mmol/L Carbon Dioxide 26.0 (21.0-32.0) mmol/L BUN 18 (7.0-18.0) mg/dL Creatinine 1.0 (0.6-1.0) mg/dL Est Cr Clr Drug Dosing 37.01 mL/min Estimated GFR (MDRD) 52.7 ml/min Glucose 116 H (74-106) mg/dL Calcium 8.9 (8.5-10.1) mg/dL Meds: Medications Discontinued Medications Generic Name Dose Route Start Last Admin Trade Name Freq PRN Reason Stop Dose Admin Acyclovir 800 mg 04/07/19 16:48 Zovirax PO 04/07/19 16:49 ONETIME ONE Valacyclovir HCl 1,000 mg 04/07/19 16:54 Valtrex PO 04/07/19 16:55 ONETIME ONE Departure - Departure Time of Disposition: 17:33 Disposition: Home, Self-Care 01 Clinical Impression: Shingles Qualifiers: Herpes zoster complications: without complications Qualified Code(s): B02.9 - Zoster without complications - Discharge Information Instructions: Shingles, [id number] Referrals: Florian Iqbal MD [Primary Care Provider] - Forms: ED Department Discharge Additional Instructions: The following information is given to patients seen in the emergency department who are being discharged to home. This information is to outline your options for follow-up care. We provide all patients seen in our emergency department with a follow-up referral. The need for follow-up, as well as the timing and circumstances, are variable depending upon the specifics of your emergency department visit. If you don't have a primary care physician on staff, we will provide you with a referral. We always advise you to contact your personal physician following an emergency department visit to inform them of the circumstance of the visit and for follow-up with them and/or the need for any referrals to a consulting specialist. The emergency department will also refer you to a specialist when appropriate. This referral assures that you have the opportunity for follow-up care with a specialist. All of these measure are taken in an effort to provide you with optimal care, which includes your follow-up. Under all circumstances we always encourage you to contact your private physician who remains a resource for coordinating your care. When calling for follow-up care, please make the office aware that this follow-up is from your recent emergency room visit. If for any reason you are refused follow-up, please contact the [facility] Emergency Department at and asked to speak to the emergency department charge nurse. [facility] Primary [facility] [address] [place] [address] [place] [address] 1. We have made to an appointment with the general accounting clerk at [facility] for 8 AM Monday (04/08/2019: Tomorrow) with Dr Chacon. Please keep and attend this appointment - its important. 2. Please take the medications as prescribed. Tramadol for moderate to severe pain. This medication may cause drowsiness a do not take it will driving her needing to be functioning outside of the house. 3. Please follow-up with your primary care provider to make sure that this resolves. Return to the ED as needed and as discussed. - My Orders Last 24 Hours: My Active Orders 04/07/19 16:36 Head wo Cont [CT] Stat - Assessment/Plan Last 24 Hours: My Active Orders 04/07/19 16:36 Head wo Cont [CT] Stat
[2019-04-07] MEDS ORDERED: Acyclovir 200 MG Cap PO ONE (16:48)
[2019-04-07] MEDS ORDERED: valACYclovir 500 MG Tab PO ONE (16:54)
--- NOTE | 2019-04-07 17:42 | CT ---
INDICATION: Headache TECHNIQUE: Head CT without contrast. COMPARISON: April 21, 2017 FINDINGS: CSF spaces: Within normal limits for age. Brain parenchyma and extra-axial spaces: There are nonspecific low attenuation white matter changes consistent with chronic microvascular disease. No sign of mass, hemorrhage, or midline shift. Skull base and calvarium: The visualized paranasal sinuses and mastoid air cells demonstrate no acute or significant findings. The visualized orbits are grossly unremarkable. No skull fractures. IMPRESSION: No acute or significant findings.Stable age-related changes. Please note that all CT scans at this facility use dose modulation, iterative reconstruction, and/or weight-based dosing when appropriate to reduce radiation dose to as low as reasonably achievable. Dictated by Santana Fermin MD @ Apr 07 2019 5:29PM Signed by Dr. Santana Fermin @ Apr 07 2019 5:41PM
[2019-04-07] MEDS ORDERED: valACYclovir 500 MG Tab PO STA (17:43)
[2019-04-07 18:00] VITALS: BP 160/80
== END 2019-04-07 17:57 | disposition home or self-care (01) ==
LOC: MW.ED 16:05
DX: B02.9 Zoster without complications (principal); E11.9 Type 2 diabetes mellitus without complications; E66.9 Obesity, unspecified; M19.90 Unspecified osteoarthritis, unspecified site; F41.9 Anxiety disorder, unspecified; F32.9 Major depressive disorder, single episode, unspecified; Z98.890 Other specified postprocedural states; Z90.710 Acquired absence of both cervix and uterus; Z98.1 Arthrodesis status; Z88.0 Allergy status to penicillin; Z88.5 Allergy status to narcotic agent; Z88.2 Allergy status to sulfonamides; Z88.1 Allergy status to other antibiotic agents; Z79.899 Other long term (current) drug therapy; Z88.8 Allergy status to other drugs, medicaments and biological substances; Z79.84 Long term (current) use of oral hypoglycemic drugs
CPT/HCPCS: 36415; 70450; 80048; 85025; 99284; A9270

== ENCOUNTER 2020-05-21 16:47 | Emergency (ER) | payer MEDICARE, OTHER ==
[2020-05-21] MEDS ORDERED: Sodium Chloride 0.9% 1,000 ML IV ONE (18:04)
[2020-05-21] MEDS ORDERED: Ondansetron 4 MG/2 ML SDV IVPUSH ONE (18:05)
[2020-05-21] MEDS ORDERED: ClonazePAM 0.5 MG Tab PO ONE (18:10)
--- NOTE | 2020-05-21 18:15 | EDM.PDOC ---
ED HPI GENERAL MEDICAL PROBLEM - General Chief Complaint: Gastrointestinal Problem Stated Complaint: VOMITTING NOT FEELING WELL Time Seen by Provider: 05/21/20 16:48 Source of Information: Reports: Patient History Limitations: Reports: No Limitations - History of Present Illness INITIAL COMMENTS - FREE TEXT/NARRATIVE: HISTORY AND PHYSICAL: History of present illness: Patient is an 85-year-old female who presents to the ED today with concern of generalized not feeling well according to patient. Patient states that yesterday she spent most of the day vomiting and today feels nauseous since having a hard time drinking water. Patient states she has not vomited today. Patient states that she has been having a hard time sleeping and feels random muscle twitches over her body with generalized muscle pain. Patient states that she is usually on clonazepam that she takes at night for sleep and states that she ran out of the prescription 2 weeks ago as she use the prescription up too quickly before her next refill. Patient states that she follows with Dr. Iqbal and has received the clonazepam for many years for sleep. Patient states typically she takes 3 pills throughout the night but lately has been taking more but is unsure how much. Patient states the past 2 days now she has not had availability of this medication. Patient denies fever, chills, chest pain, shortness of breath, or cough. Denies headache, neck stiff ness, change in vision, syncope, or near syncope. Denies abdominal pain, diarrhea, constipation, or dysuria. Has not noted any blood in urine or stool. Review of systems: As per history of present illness and below otherwise all systems reviewed and negative. Past medical history: As per history of present illness and as reviewed below otherwise noncontributory. Surgical history: As per history of present illness and as reviewed below otherwise noncontributory. Social history: See social history for further information Family history: As per history of present illness and as reviewed below otherwise noncontributory. Physical exam: General: Patient is alert, oriented, and in no acute distress. Patient sitting comfortably on exam table. HEENT: Atraumatic, normocephalic, pupils equal and reactive bilaterally, negative for conjunctival pallor or scleral icterus, mucous membranes moist, TMs normal bilaterally, throat clear, neck supple, nontender, trachea midline. No drooling or trismus noted. No meningeal signs. No hot potato voice noted. Lungs: Clear to auscultation, breath sounds equal bilaterally, chest nontender. Heart: S1S2, regular rate and rhythm without overt murmur Abdomen: Soft, nondistended, nontender. Negative for masses or hepatosplenomegaly. Negative for costovertebral tenderness. Pelvis: Stable nontender. Genitourinary: Deferred. Rectal: Deferred. Skin: Intact, warm, dry. No lesions or rashes noted. Extremities: Atraumatic, negative for cords or calf pain. Neurovascular unremarkable. Neuro: Awake, alert, oriented. Cranial nerves II through XII unremarkable. Cerebellum unremarkable. Motor and sensory unremarkable throughout. Exam nonfocal. Notes: Patient expresses complete resolution of symptoms with therapeutics today in the ED. I do suspect that since patient has been taking clonazepam for many years and has suddenly stopped taking this medication, that this could be contributing to some of patient's symptoms. I did prescribe enough clonazepam to get her into next week. Patient does have an appointment with Dr. Iqbal on June 10. I did instruct patient to call his clinic tomorrow to see if he is willing to refill this medication leading up to the appointment or able to move the appointment to a sooner time. Admission for observation was offered to patient but she declines at this time. All signs and symptoms that would prompt return to the ED thoroughly discussed with patient. Voices understanding and is agreeable to plan of care. Denies any further questions or concerns at this time. Diagnostics: CBC, CMP, UA w cult, EKG, chest x-ray, troponin, COVID 10 Therapeutics: Saline, clonazepam, Zofran Prescription: Clonazepam (#18). Macrobid Impression: Malaise, improved Benzodiazepine withdraw Urinary tract infection, early Plan: 1. Take medication as prescribed. 2. Call Dr. Iqbal's office tomorrow asking for refill of medication until scheduled appointment on June 10. 3. Return to the ED as needed and as discussed. Definitive disposition and diagnosis as appropriate pending reevaluation and review of above. - Related Data Allergies Allergy/AdvReac Type Severity Reaction Status Date / Time metronidazole Allergy Cannot Verified 04/07/19 16:25 Remember morphine Allergy Nausea and Verified 04/07/19 16:25 Vomiting Penicillins Allergy Swelling Verified 04/07/19 16:25 propoxyphene HCl Allergy Drowsiness Verified 04/07/19 16:25 [From Darvon] sulfamethoxazole Allergy Rash Verified 04/07/19 16:25 [From Bactrim] trimethoprim [From Bactrim] Allergy Rash Verified 04/07/19 16:25 Home Meds: Home Meds Venlafaxine [Effexor XR] 150 mg PO QPM 06/15/14 [History] rOPINIRole [Requip] 3 tab PO ASDIRECTED 06/15/14 [History] Latanoprost [Xalatan 0.005% Ophth Soln] 1 drop EYEBOTH BID 01/20/17 [History] Multivitamin [Daily Multiple Vitamin] 1 tab PO DAILY 01/20/17 [History] clonazePAM [Klonopin] 0.5 tab PO TID PRN 01/20/17 [History] metFORMIN [Glucophage XR] 500 mg PO BID 01/20/17 [History] Nitrofurantoin Monohyd/M-Cryst [Macrobid 100 mg Capsule] 100 mg PO BID 5 Days #10 capsule 05/21/20 [Rx] Non-Formulary Medication [NF Drug] 0.5 mg IM ASDIRECTED 05/21/20 [History] clonazePAM [Clonazepam] 0.5 mg PO TID PRN #18 tab.rapdis 05/21/20 [Rx] Past Medical History HEENT History: Reports: Glaucoma, Hard of Hearing, Impaired Vision Other HEENT History: wears glasses, has upper denture and lower partial removable denture Cardiovascular History: Reports: High Cholesterol Respiratory History: Reports: Bronchitis, Recurrent Gastrointestinal History: Reports: Hepatitis Other Gastrointestinal History: Autoimmune Hepatitis, was treated with Prednisone for 2 years- liver now ok per patient 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: Reports: None [employer] History: Reports: Musculoskeletal History: Reports: Arthritis, Back Pain, Chronic, Fracture Other Musculoskeletal History: hx of fx foot Neurological History: Reports: Migraines, Other (See Below) Other Neuro History: HX of restless leg syndrome Psychiatric History: Reports: Anxiety, Depression Endocrine/Metabolic History: Reports: Diabetes, Type II, Obesity/BMI 30+ Other Endocrine/Metabolic History: recent dx of diabetes Hematologic History: Reports: None Immunologic History: Reports: None Oncologic (Cancer) History: Reports: None Dermatologic History: Reports: Other (See Below) Other Dermatologic History: rash on right arm and and legs - Infectious Disease History Infectious Disease History: Reports: Chicken Pox, Measles, Mumps, Rubella, Shingles Other Infectious Disease History: Autoiimune hepatitis - Past Surgical History HEENT Surgical History: Reports: Tonsillectomy, Other (See Below) Female Surgical History: Reports: Hysterectomy, Other (See Below) Neurological Surgical History: Reports: Spinal Fusion Musculoskeletal Surgical History: Reports: Knee Replacement Social & Family History - Family History Family Medical History: Noncontributory Cardiac: Reports: High Cholesterol, [place] - Caffeine Use Caffeine Use: Reports: Coffee, Tea - Recreational Drug Use Recreational Drug Use: No ED ROS GENERAL - Review of Systems Review Of Systems: Comprehensive ROS is negative, except as noted in HPI. ED EXAM, GENERAL - Physical Exam Exam: See Below (See dictation) Course - Vital Signs Last Recorded V/S: Last Vital Signs Temp 98.0 F 05/21/20 17:49 Pulse 74 05/21/20 17:49 Resp 20 05/21/20 17:49 BP 166/71 H 05/21/20 17:49 Pulse Ox 96 05/21/20 17:49 - Orders/Labs/Meds Orders: Active Orders 24 hr Category Date Time Status EKG Documentation Completion [RC] STAT Care 05/21/20 18:05 Active CULTURE URINE [RM] Stat Lab 05/21/20 19:11 Received Labs: Laboratory Tests 05/21/20 05/21/20 05/21/20 Range/Units 18:20 18:20 19:11 WBC 7.95 (4.0-11.0) K/uL RBC 4.16 L (4.30-5.90) M/uL Hgb 12.6 (12.0-16.0) g/dL Hct 39.1 (36.0-46.0) % MCV 94.0 (80.0-98.0) fL MCH 30.3 (27.0-32.0) pg MCHC 32.2 (31.0-37.0) g/dL RDW Std Deviation 47.0 (28.0-62.0) fl RDW Coeff of Angel 14 (11.0-15.0) % Plt Count 265 (150-400) K/uL MPV 10.20 (7.40-12.00) fL Neut % (Auto) 60.6 (48.0-80.0) % Lymph % (Auto) 30.6 (16.0-40.0) % [place] % (Auto) 5.4 (0.0-15.0) % Eos % (Auto) 3.1 (0.0-7.0) % Baso % (Auto) 0.3 (0.0-1.5) % Neut # (Auto) 4.8 (1.4-5.7) K/uL Lymph # (Auto) 2.4 (0.6-2.4) K/uL [place] # (Auto) 0.4 (0.0-0.8) K/uL Eos # (Auto) 0.3 (0.0-0.7) K/uL Baso # (Auto) 0.0 (0.0-0.1) K/uL Nucleated RBC % 0.0 /100WBC Nucleated RBCs # 0 K/uL Sodium 136 (136-145) mmol/L Potassium 4.3 (3.5-5.1) mmol/L Chloride 100 (98-107) mmol/L Carbon Dioxide 26.6 (21.0-32.0) mmol/L BUN 17 (7.0-18.0) mg/dL Creatinine 1.2 H (0.6-1.0) mg/dL Est Cr Clr Drug Dosing 29.72 mL/min Estimated GFR (MDRD) 42.5 ml/min Glucose 111 H (74-106) mg/dL Calcium 8.9 (8.5-10.1) mg/dL Total Bilirubin 0.3 (0.2-1.0) mg/dL AST 27 (15-37) IU/L ALT 27 (14-63) IU/L Alkaline Phosphatase 98 (46-116) U/L Troponin I < 0.050 (0.000-0.056) ng/mL Total Protein 7.6 (6.4-8.2) g/dL Albumin 4.0 (3.4-5.0) g/dL Globulin 3.6 (2.6-4.0) g/dL Albumin/Globulin Ratio 1.1 (0.9-1.6) Lipase 127 (73-393) U/L Urine Color YELLOW Urine Appearance CLEAR Urine pH 6.5 (5.0-8.0) Ur Specific [place] 1.015 (1.001-1.035) Urine Protein NEGATIVE (NEGATIVE) mg/dL Urine Glucose (UA) NEGATIVE (NEGATIVE) mg/dL Urine Ketones NEGATIVE (NEGATIVE) mg/dL Urine Occult Blood NEGATIVE (NEGATIVE) Urine Nitrite NEGATIVE (NEGATIVE) Urine Bilirubin NEGATIVE (NEGATIVE) Urine Urobilinogen 0.2 (<2.0) EU/dL Ur Leukocyte Esterase TRACE H (NEGATIVE) Urine RBC NONE SEEN (0-2/HPF) Urine WBC 1-3 (0-5/HPF) Ur Epithelial Cells RARE (NONE-FEW) Amorphous Sediment RARE (NEGATIVE) Urine Bacteria FEW (NEGATIVE) Urine Mucus RARE (NONE-MOD) COVID-19 (MIRNA) (NEGATIVE) 05/21/20 Range/Units 19:54 WBC (4.0-11.0) K/uL RBC (4.30-5.90) M/uL Hgb (12.0-16.0) g/dL Hct (36.0-46.0) % MCV (80.0-98.0) fL MCH (27.0-32.0) pg MCHC (31.0-37.0) g/dL RDW Std Deviation (28.0-62.0) fl RDW Coeff of Angel (11.0-15.0) % Plt Count (150-400) K/uL MPV (7.40-12.00) fL Neut % (Auto) (48.0-80.0) % Lymph % (Auto) (16.0-40.0) % [place] % (Auto) (0.0-15.0) % Eos % (Auto) (0.0-7.0) % Baso % (Auto) (0.0-1.5) % Neut # (Auto) (1.4-5.7) K/uL Lymph # (Auto) (0.6-2.4) K/uL [place] # (Auto) (0.0-0.8) K/uL Eos # (Auto) (0.0-0.7) K/uL Baso # (Auto) (0.0-0.1) K/uL Nucleated RBC % /100WBC Nucleated RBCs # K/uL Sodium (136-145) mmol/L Potassium (3.5-5.1) mmol/L Chloride (98-107) mmol/L Carbon Dioxide (21.0-32.0) mmol/L BUN (7.0-18.0) mg/dL Creatinine (0.6-1.0) mg/dL Est Cr Clr Drug Dosing mL/min Estimated GFR (MDRD) ml/min Glucose (74-106) mg/dL Calcium (8.5-10.1) mg/dL Total Bilirubin (0.2-1.0) mg/dL AST (15-37) IU/L ALT (14-63) IU/L Alkaline Phosphatase (46-116) U/L Troponin I (0.000-0.056) ng/mL Total Protein (6.4-8.2) g/dL Albumin (3.4-5.0) g/dL Globulin (2.6-4.0) g/dL Albumin/Globulin Ratio (0.9-1.6) Lipase (73-393) U/L Urine Color Urine Appearance Urine pH (5.0-8.0) Ur Specific [place] (1.001-1.035) Urine Protein (NEGATIVE) mg/dL Urine Glucose (UA) (NEGATIVE) mg/dL Urine Ketones (NEGATIVE) mg/dL Urine Occult Blood (NEGATIVE) Urine Nitrite (NEGATIVE) Urine Bilirubin (NEGATIVE) Urine Urobilinogen (<2.0) EU/dL Ur Leukocyte Esterase (NEGATIVE) Urine RBC (0-2/HPF) Urine WBC (0-5/HPF) Ur Epithelial Cells (NONE-FEW) Amorphous Sediment (NEGATIVE) Urine Bacteria (NEGATIVE) Urine Mucus (NONE-MOD) COVID-19 (MIRNA) NEGATIVE (NEGATIVE) Meds: Medications Discontinued Medications Generic Name Dose Route Start Last Admin Trade Name Freq PRN Reason Stop Dose Admin Clonazepam 0.5 mg 05/21/20 18:10 05/21/20 19:07 Klonopin PO 05/21/20 18:11 0.5 mg ONETIME ONE Administration Sodium Chloride 1,000 mls @ 500 mls/hr 05/21/20 18:04 05/21/20 18:12 Normal Saline IV 05/21/20 20:03 500 mls/hr BOLUS ONE Administration Ondansetron HCl 4 mg 05/21/20 18:05 05/21/20 18:12 Zofran IVPUSH 05/21/20 18:06 4 mg ONETIME ONE Administration Departure - Departure Time of Disposition: 20:46 Disposition: Home, Self-Care 01 Clinical Impression: Malaise Urinary tract infection Qualifiers: Urinary tract infection type: acute cystitis Hematuria presence: without hematuria Qualified Code(s): N30.00 - Acute cystitis without hematuria - Discharge Information Prescriptions: clonazePAM [Clonazepam] 0.5 mg PO TID PRN #18 tab.rapdis PRN Reason: Insomnia Nitrofurantoin Monohyd/M-Cryst [Macrobid 100 mg Capsule] 100 mg PO BID 5 Days #10 capsule Referrals: Florian Iqbal MD [Primary Care Provider] - Forms: ED Department Discharge Additional Instructions: The following information is given to patients seen in the emergency department who are being discharged to home. This information is to outline your options for follow-up care. We provide all patients seen in our emergency department with a follow-up referral. The need for follow-up, as well as the timing and circumstances, are variable depending upon the specifics of your emergency department visit. If you don't have a primary care physician on staff, we will provide you with a referral. We always advise you to contact your personal physician following an emergency department visit to inform them of the circumstance of the visit and for follow-up with them and/or the need for any referrals to a consulting spe cialist. The emergency department will also refer you to a specialist when appropriate. This referral assures that you have the opportunity for follow-up care with a specialist. All of these measure are taken in an effort to provide you with optimal care, which includes your follow-up. Under all circumstances we always encourage you to contact your private physician who remains a resource for coordinating your care. When calling for follow-up care, please make the office aware that this follow-up is from your recent emergency room visit. If for any reason you are refused follow-up, please contact the [facility] Emergency Department at and asked to speak to the emergency department charge nurse. [facility] [address] [place] [id number] [address] 1. Take medication as prescribed. 2. Call Dr. Iqbal's office tomorrow asking for refill of medication until scheduled appointment on June 10. 3. Return to the ED as needed and as discussed. Sepsis Event Note (ED) - Evaluation Sepsis Screening Result: No Definite Risk - Focused Exam Vital Signs: Vital Signs Temp Pulse Resp BP Pulse Ox 05/21/20 17:49 98.0 F 74 20 166/71 H 96 - My Orders Last 24 Hours: My Active Orders 05/21/20 18:05 EKG Documentation Completion [RC] STAT 05/21/20 19:11 CULTURE URINE [RM] Stat - Assessment/Plan Last 24 Hours: My Active Orders 05/21/20 18:05 EKG Documentation Completion [RC] STAT 05/21/20 19:11 CULTURE URINE [RM] Stat
--- NOTE | 2020-05-21 19:01 | CR ---
Chest: Portable view of the chest was obtained. Comparison: Prior chest x-ray of 04/21/17. Heart size and mediastinum are within normal limits for portable technique. Lungs are clear with no acute parenchymal change. Bony structures are unremarkable. Electro-stimulating electrodes are seen within the thoracic spine. Impression: 1. Nothing acute is seen on portable chest x-ray. Diagnostic code #2 This report was dictated in MDT
[2020-05-21 19:05] LABS: BLOOD UREA NITROGEN,BUN 17 mg/dL (7.0-18.0); CARBON DIOXIDE,CO2 26.6 mmol/L (21.0-32.0); CHLORIDE,CL 100 mmol/L (98-107); GLUCOSE RANDOM 111 mg/dL (74-106); LIPASE 127 U/L (73-393); POTASSIUM,K 4.3 mmol/L (3.5-5.1); SODIUM,NA 136 mmol/L (136-145)
[2020-05-21 23:19] VITALS: BP 141/68
[2020-05-21 23:21] VITALS: PULSE 71
== END 2020-05-21 21:00 | disposition home or self-care (01) ==
LOC: MW.ED 16:47
DX: N30.00 Acute cystitis without hematuria (principal); F13.239 Sedative, hypnotic or anxiolytic dependence with withdrawal, unspecified; E78.00 Pure hypercholesterolemia, unspecified; E11.9 Type 2 diabetes mellitus without complications; E66.9 Obesity, unspecified; F41.9 Anxiety disorder, unspecified; F32.9 Major depressive disorder, single episode, unspecified; Z68.35 Body mass index [BMI] 35.0-35.9, adult; Z20.828 Contact with and (suspected) exposure to other viral communicable diseases; Z88.5 Allergy status to narcotic agent; Z88.8 Allergy status to other drugs, medicaments and biological substances; Z88.0 Allergy status to penicillin; Z88.2 Allergy status to sulfonamides; Z79.899 Other long term (current) drug therapy; Z79.84 Long term (current) use of oral hypoglycemic drugs
CPT/HCPCS: 36415; 71045; 80053; 81001; 83690; 84484; 85025; 87086; 87088; 87186; 93005; 96361; 96374; 99284; A9270; J2405; J7030; U0002

== ENCOUNTER 2020-06-22 09:54 | Emergency (ER) | payer MEDICARE, OTHER ==
--- NOTE | 2020-06-22 10:01 | EDM.PDOC ---
ED HPI GENERAL MEDICAL PROBLEM - General Stated Complaint: COUGHING WEAKNESS Time Seen by Provider: 06/22/20 09:58 Source of Information: Reports: Patient History Limitations: Reports: No Limitations - History of Present Illness INITIAL COMMENTS - FREE TEXT/NARRATIVE: 85F PMHx UTIs, bronchitis, anxiety presents for cough and generalized weakness over last several days. Has had non-productive cough for about a week that seems to be constant, no chest pain, no SOB, no LE swelling, no fevers. This morning felt generalized weakness nad "like my legs were going to give out" which is new for her and prompted her to seek medical care. She denies N/V, abdominal pain. She is eating and drinking ok. She denies known COVID exposure. Generalized Pain Score (Numeric/FACES): 3 - Related Data Allergies Allergy/AdvReac Type Severity Reaction Status Date / Time metronidazole Allergy Cannot Verified 06/22/20 10:01 Remember morphine Allergy Nausea and Verified 06/22/20 10:01 Vomiting Penicillins Allergy Swelling Verified 06/22/20 10:01 propoxyphene HCl Allergy Drowsiness Verified 06/22/20 10:01 [From Darvon] sulfamethoxazole Allergy Rash Verified 06/22/20 10:01 [From Bactrim] trimethoprim [From Bactrim] Allergy Rash Verified 06/22/20 10:01 Home Meds: Home Meds Venlafaxine [Effexor XR] 150 mg PO QPM 06/15/14 [History] rOPINIRole [Requip] 3 tab PO ASDIRECTED 06/15/14 [History] Latanoprost [Xalatan 0.005% Ophth Soln] 1 drop EYEBOTH BID 01/20/17 [History] Multivitamin [Daily Multiple Vitamin] 1 tab PO DAILY 01/20/17 [History] clonazePAM [Klonopin] 0.5 tab PO TID PRN 01/20/17 [History] metFORMIN [Glucophage XR] 500 mg PO BID 01/20/17 [History] Non-Formulary Medication [NF Drug] 0.5 mg IM ASDIRECTED 05/21/20 [History] cephALEXin [Keflex] 500 mg PO BID 7 Days #14 cap 06/22/20 [Rx] Past Medical History HEENT History: Reports: Glaucoma, Hard of Hearing, Impaired Vision Other HEENT History: wears glasses, has upper denture and lower partial removable denture Cardiovascular History: Reports: High Cholesterol Respiratory History: Reports: Bronchitis, Recurrent Gastrointestinal History: Reports: Hepatitis Other Gastrointestinal History: Autoimmune Hepatitis, was treated with Prednisone for 2 years- liver now ok per patient 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: Reports: None [employer] History: Reports: Musculoskeletal History: Reports: Arthritis, Back Pain, Chronic, Fracture Other Musculoskeletal History: hx of fx foot Neurological History: Reports: Migraines, Other (See Below) Other Neuro History: HX of restless leg syndrome Psychiatric History: Reports: Anxiety, Depression Endocrine/Metabolic History: Reports: Diabetes, Type II, Obesity/BMI 30+ Other Endocrine/Metabolic History: recent dx of diabetes Hematologic History: Reports: None Immunologic History: Reports: None Oncologic (Cancer) History: Reports: None Dermatologic History: Reports: Other (See Below) Other Dermatologic History: rash on right arm and and legs - Infectious Disease History Infectious Disease History: Reports: Chicken Pox, Measles, Mumps, Rubella, Shingles Other Infectious Disease History: Autoiimune hepatitis - Past Surgical History HEENT Surgical History: Reports: Tonsillectomy, Other (See Below) Female Surgical History: Reports: Hysterectomy, Other (See Below) Neurological Surgical History: Reports: Spinal Fusion Musculoskeletal Surgical History: Reports: Knee Replacement Social & Family History - Family History Family Medical History: Noncontributory Cardiac: Reports: High Cholesterol, [place] - Caffeine Use Caffeine Use: Reports: Coffee, Tea ED ROS GENERAL - Review of Systems Review Of Systems: Comprehensive ROS is negative, except as noted in HPI. ED EXAM, GENERAL - Physical Exam Exam: See Below Exam Limited By: No Limitations General Appearance: Alert, WD/WN, No Apparent Distress Ears: Normal External Exam Nose: Normal Inspection Throat/Mouth: Normal Voice, No Airway Compromise Head: Atraumatic, Normocephalic Neck: Normal Inspection, Supple Respiratory/Chest: No Respiratory Distress, Lungs Clear, Normal Breath Sounds, No Accessory Muscle Use Cardiovascular: Normal Peripheral Pulses, Regular Rate, Rhythm, No Edema GI/Abdominal: Soft, Non-Tender Extremities: Normal Inspection Neurological: Alert Psychiatric: Normal Affect, Normal Mood Skin Exam: Warm, Dry, Intact EKG INTERPRETATION EKG Date: 06/22/20 Time: 10:25 Rhythm: NSR Rate (Beats/Min): 80 [place]: Normal P-Wave: Present QRS: Normal ST-T: Normal QT: Normal ID/PQ Interval: 170 Comparison: NA - No Prior EKG EKG Interpretation Comments: no signs of ischemia or dysrhythmia Course - Vital Signs Last Recorded V/S: Last Vital Signs Temp 98.8 F 06/22/20 10:04 Pulse 84 06/22/20 11:49 Resp 15 06/22/20 11:49 BP 152/76 H 06/22/20 11:49 Pulse Ox 96 06/22/20 11:49 - Orders/Labs/Meds Orders: Active Orders 24 hr Category Date Time Status Cardiac Monitoring [RC] . DIRECTED Care 06/22/20 10:15 Active EKG Documentation Completion [RC] STAT Care 06/22/20 10:15 Active Pulse Oximetry [RC] ASDIRECTED Care 06/22/20 10:15 Active PROCALCITONIN [REF] Stat Lab 06/22/20 10:20 Received Sodium Chloride 0.9% [Saline Flush] Med 06/22/20 10:15 Active 10 ml FLUSH ASDIRECTED PRN Sodium Chloride 0.9% [Saline Flush] Med 06/22/20 10:15 Active 2.5 ml FLUSH ASDIRECTED PRN Saline Lock Insert [OM.PC] Stat Oth 06/22/20 10:15 Ordered Medication Orders Sodium Chloride (Saline Flush) 10 ml FLUSH ASDIRECTED PRN PRN Reason: Keep Vein Open Last Admin: 06/22/20 10:29 Dose: 10 ml Documented by: MARI Sodium Chloride (Saline Flush) 2.5 ml FLUSH ASDIRECTED PRN PRN Reason: Keep Vein Open Last Admin: 06/22/20 10:29 Dose: 2.5 ml Documented by: MARI Labs: Laboratory Tests 06/22/20 06/22/20 06/22/20 Range/Units 10:06 10:20 10:20 WBC 7.03 (4.0-11.0) K/uL RBC 4.24 L (4.30-5.90) M/uL Hgb 12.8 (12.0-16.0) g/dL Hct 40.1 (36.0-46.0) % MCV 94.6 (80.0-98.0) fL MCH 30.2 (27.0-32.0) pg MCHC 31.9 (31.0-37.0) g/dL RDW Std Deviation 47.3 (28.0-62.0) fl RDW Coeff of Angel 14 (11.0-15.0) % Plt Count 252 (150-400) K/uL MPV 10.30 (7.40-12.00) fL Neut % (Auto) 56.7 (48.0-80.0) % Lymph % (Auto) 30.0 (16.0-40.0) % [place] % (Auto) 7.8 (0.0-15.0) % Eos % (Auto) 5.1 (0.0-7.0) % Baso % (Auto) 0.4 (0.0-1.5) % Neut # (Auto) 4.0 (1.4-5.7) K/uL Lymph # (Auto) 2.1 (0.6-2.4) K/uL [place] # (Auto) 0.6 (0.0-0.8) K/uL Eos # (Auto) 0.4 (0.0-0.7) K/uL Baso # (Auto) 0.0 (0.0-0.1) K/uL Nucleated RBC % 0.0 /100WBC Nucleated RBCs # 0 K/uL Sodium 137 (136-145) mmol/L Potassium 4.4 (3.5-5.1) mmol/L Chloride 102 (98-107) mmol/L Carbon Dioxide 22.4 (21.0-32.0) mmol/L BUN 12 (7.0-18.0) mg/dL Creatinine 1.0 (0.6-1.0) mg/dL Est Cr Clr Drug Dosing 35.66 mL/min Estimated GFR (MDRD) 52.4 ml/min Glucose 135 H (74-106) mg/dL POC Glucose 139 H (60-110) mg/dL Calcium 8.8 (8.5-10.1) mg/dL Magnesium 2.4 (1.8-2.4) mg/dL Total Bilirubin 0.3 (0.2-1.0) mg/dL AST 33 (15-37) IU/L ALT 33 (14-63) IU/L Alkaline Phosphatase 103 (46-116) U/L Troponin I < 0.050 (0.000-0.056) ng/mL B-Natriuretic Peptide (<100) PG/ML Total Protein 7.4 (6.4-8.2) g/dL Albumin 3.8 (3.4-5.0) g/dL Globulin 3.6 (2.6-4.0) g/dL Albumin/Globulin Ratio 1.1 (0.9-1.6) Urine Color Urine Appearance Urine pH (5.0-8.0) Ur Specific [place] (1.001-1.035) Urine Protein (NEGATIVE) mg/dL Urine Glucose (UA) (NEGATIVE) mg/dL Urine Ketones (NEGATIVE) mg/dL Urine Occult Blood (NEGATIVE) Urine Nitrite (NEGATIVE) Urine Bilirubin (NEGATIVE) Urine Urobilinogen (<2.0) EU/dL Ur Leukocyte Esterase (NEGATIVE) Urine RBC (0-2/HPF) Urine WBC (0-5/HPF) Ur Epithelial Cells (NONE-FEW) Amorphous Sediment (NEGATIVE) Urine Bacteria (NEGATIVE) COVID-19 (MIRNA) (NEGATIVE) 06/22/20 06/22/20 06/22/20 Range/Units 10:20 10:30 11:00 WBC (4.0-11.0) K/uL RBC (4.30-5.90) M/uL Hgb (12.0-16.0) g/dL Hct (36.0-46.0) % MCV (80.0-98.0) fL MCH (27.0-32.0) pg MCHC (31.0-37.0) g/dL RDW Std Deviation (28.0-62.0) fl RDW Coeff of Angel (11.0-15.0) % Plt Count (150-400) K/uL MPV (7.40-12.00) fL Neut % (Auto) (48.0-80.0) % Lymph % (Auto) (16.0-40.0) % [place] % (Auto) (0.0-15.0) % Eos % (Auto) (0.0-7.0) % Baso % (Auto) (0.0-1.5) % Neut # (Auto) (1.4-5.7) K/uL Lymph # (Auto) (0.6-2.4) K/uL [place] # (Auto) (0.0-0.8) K/uL Eos # (Auto) (0.0-0.7) K/uL Baso # (Auto) (0.0-0.1) K/uL Nucleated RBC % /100WBC Nucleated RBCs # K/uL Sodium (136-145) mmol/L Potassium (3.5-5.1) mmol/L Chloride (98-107) mmol/L Carbon Dioxide (21.0-32.0) mmol/L BUN (7.0-18.0) mg/dL Creatinine (0.6-1.0) mg/dL Est Cr Clr Drug Dosing mL/min Estimated GFR (MDRD) ml/min Glucose (74-106) mg/dL POC Glucose (60-110) mg/dL Calcium (8.5-10.1) mg/dL Magnesium (1.8-2.4) mg/dL Total Bilirubin (0.2-1.0) mg/dL AST (15-37) IU/L ALT (14-63) IU/L Alkaline Phosphatase (46-116) U/L Troponin I (0.000-0.056) ng/mL B-Natriuretic Peptide 110 H (<100) PG/ML Total Protein (6.4-8.2) g/dL Albumin (3.4-5.0) g/dL Globulin (2.6-4.0) g/dL Albumin/Globulin Ratio (0.9-1.6) Urine Color YELLOW Urine Appearance HAZY Urine pH 7.0 (5.0-8.0) Ur Specific [place] 1.015 (1.001-1.035) Urine Protein NEGATIVE (NEGATIVE) mg/dL Urine Glucose (UA) NEGATIVE (NEGATIVE) mg/dL Urine Ketones NEGATIVE (NEGATIVE) mg/dL Urine Occult Blood TRACE-INTACT H (NEGATIVE) Urine Nitrite POSITIVE H (NEGATIVE) Urine Bilirubin NEGATIVE (NEGATIVE) Urine Urobilinogen 0.2 (<2.0) EU/dL Ur Leukocyte Esterase LARGE H (NEGATIVE) Urine RBC 0-2 (0-2/HPF) Urine WBC 40-50 (0-5/HPF) Ur Epithelial Cells FEW (NONE-FEW) Amorphous Sediment LIGHT (NEGATIVE) Urine Bacteria 1+ H (NEGATIVE) COVID-19 (MIRNA) NEGATIVE (NEGATIVE) Meds: Medications Generic Name Dose Route Start Last Admin Trade Name Cecy PRN Reason Stop Dose Admin Sodium Chloride 10 ml 06/22/20 10:15 06/22/20 10:29 Saline Flush FLUSH 10 ml ASDIRECTED PRN Administration Keep Vein Open Sodium Chloride 2.5 ml 06/22/20 10:15 06/22/20 10:29 Saline Flush FLUSH 2.5 ml ASDIRECTED PRN Administration Keep Vein Open Discontinued Medications Generic Name Dose Route Start Last Admin Trade Name Cecy PRN Reason Stop Dose Admin Ceftriaxone Sodium/Dextrose 1 50 mls @ 100 mls/hr 06/22/20 11:39 06/22/20 11:46 gm/ Premix IV 06/22/20 12:08 100 mls/hr ONETIME ONE Administration - Re-Assessments/Exams Free Text/Narrative Re-Assessment/Exam: 06/22/20 10:23 Will get labs/CXR/UA to screen for infection, electrolyte imbalance, dehydration. Will get COVID-19 swab although fairly low suspicion given reassuring history and benign exam. Will f/u results and disposition accordingly. 06/22/20 11:41 CXR/EKG/blood labs unremarkable. UA remarkable for nitrite positive UTI. Will give 1x dose rocephin. Anticipate d/c home. COVID pending 06/22/20 12:13 COVID negative; will d/c home with Abx and PMD f/u. Obs admission for UTI was offered, but through shared decision making, patient is comfortable going home and trying PO abx. Departure - Departure Time of Disposition: 12:14 Disposition: Home, Self-Care 01 Condition: Good Clinical Impression: UTI (urinary tract infection) Qualifiers: Urinary tract infection type: acute cystitis Hematuria presence: without hematuria Qualified Code(s): N30.00 - Acute cystitis without hematuria - Discharge Information Prescriptions: cephALEXin [Keflex] 500 mg PO BID 7 Days #14 cap Referrals: Florian Iqbal MD [Primary Care Provider] - Forms: ED Department Discharge Additional Instructions: The following information is given to patients seen in the emergency department who are being discharged to home. This information is to outline your options for follow-up care. We provide all patients seen in our emergency department with a follow-up referral. The need for follow-up, as well as the timing and circumstances, are variable depending upon the specifics of your emergency department visit. If you don't have a primary care physician on staff, we will provide you with a referral. We always advise you to contact your personal physician following an emergency department visit to inform them of the circumstance of the visit and for follow-up with them and/or the need for any referrals to a consulting specialist. The emergency department will also refer you to a specialist when appropriate. This referral assures that you have the opportunity for follow-up care with a specialist. All of these measure are taken in an effort to provide you with optimal care, which includes your follow-up. Under all circumstances we always encourage you to contact your private physician who remains a resource for coordinating your care. When calling for follow-up care, please make the office aware that this follow-up is from your recent emergency room visit. If for any reason you are refused follow-up, please contact the [facility] Emergency Department at and asked to speak to the emergency department charge nurse. Please follow up with your primary care physician. If you do not have a primary care physician, see below: [facility] [address] [place] [id number] [facility] [address] [place] [id number] Sepsis Event Note (ED) - Focused Exam Vital Signs: Vital Signs Temp Pulse Resp BP Pulse Ox 06/22/20 11:49 84 15 152/76 H 96 06/22/20 10:04 98.8 F 90 16 165/79 H 94 L - My Orders Last 24 Hours: My Active Orders 06/22/20 10:15 Cardiac Monitoring [RC] . DIRECTED EKG Documentation Completion [RC] STAT Pulse Oximetry [RC] ASDIRECTED Sodium Chloride 0.9% [Saline Flush] 10 ml FLUSH ASDIRECTED PRN Sodium Chloride 0.9% [Saline Flush] 2.5 ml FLUSH ASDIRECTED PRN Saline Lock Insert [OM.PC] Stat 06/22/20 10:20 PROCALCITONIN [REF] Stat - Assessment/Plan Last 24 Hours: My Active Orders 06/22/20 10:15 Cardiac Monitoring [RC] . DIRECTED EKG Documentation Completion [RC] STAT Pulse Oximetry [RC] ASDIRECTED Sodium Chloride 0.9% [Saline Flush] 10 ml FLUSH ASDIRECTED PRN Sodium Chloride 0.9% [Saline Flush] 2.5 ml FLUSH ASDIRECTED PRN Saline Lock Insert [OM.PC] Stat 06/22/20 10:20 PROCALCITONIN [REF] Stat
[2020-06-22] MEDS ORDERED: Sodium Chloride 0.9% 10 ML Syringe FLUSH PRN (10:15)
[2020-06-22] MEDS ORDERED: Sodium Chloride 0.9% 2.5 ML Syringe FLUSH PRN (10:15)
[2020-06-22 10:54] LABS: BLOOD UREA NITROGEN,BUN 12 mg/dL (7.0-18.0); CARBON DIOXIDE,CO2 22.4 mmol/L (21.0-32.0); CHLORIDE,CL 102 mmol/L (98-107); GLUCOSE RANDOM 135 mg/dL (74-106); POTASSIUM,K 4.4 mmol/L (3.5-5.1); SODIUM,NA 137 mmol/L (136-145)
--- NOTE | 2020-06-22 11:21 | CR ---
Chest: Portable view of the chest was obtained. Comparison: Prior chest x-ray of 05/21/20. Heart size and mediastinum are within normal limits for portable technique. Lungs are clear with no acute parenchymal change. Bony structures show scoliosis within the spine but are grossly intact. Impression: 1. Nothing acute is appreciated on portable chest x-ray. Diagnostic code #2 This report was dictated in MDT
[2020-06-22] MEDS ORDERED: cefTRIAXone 1 GM in Premix Bag 1 BAG IV ONE (11:39)
[2020-06-22 12:33] VITALS: BP 139/73; PULSE 76
== END 2020-06-22 12:34 | disposition home or self-care (01) ==
LOC: MW.ED 09:54
DX: N30.00 Acute cystitis without hematuria (principal); E11.9 Type 2 diabetes mellitus without complications; M19.90 Unspecified osteoarthritis, unspecified site; F41.9 Anxiety disorder, unspecified; F32.9 Major depressive disorder, single episode, unspecified; Z20.828 Contact with and (suspected) exposure to other viral communicable diseases; Z79.84 Long term (current) use of oral hypoglycemic drugs; Z79.899 Other long term (current) drug therapy; Z88.2 Allergy status to sulfonamides; Z88.0 Allergy status to penicillin; Z88.6 Allergy status to analgesic agent; Z88.1 Allergy status to other antibiotic agents
CPT/HCPCS: 36415; 71045; 80053; 81001; 82962; 83735; 83880; 84145; 84484; 85025; 93005; 96365; 99285; J0696; U0002

== ENCOUNTER 2020-06-30 19:22 | Emergency (ER) | payer OTHER, MEDICARE ==
[2020-06-30 19:49] VITALS: BP 117/69; PULSE 94
[2020-06-30] MEDS ORDERED: Dexamethasone 10 MG/ML SDV IVPUSH ONE (20:02)
[2020-06-30] MEDS ORDERED: Sodium Chloride 0.9% 10 ML Syringe FLUSH PRN (20:02)
[2020-06-30] MEDS ORDERED: Ketorolac 15 MG/ML SDV IVPUSH ONE (20:02)
[2020-06-30] MEDS ORDERED: Sodium Chloride 0.9% 2.5 ML Syringe FLUSH PRN (20:02)
[2020-06-30] MEDS ORDERED: fentaNYL 50 MCG/ML SDV IVPUSH ONE ×2 (20:02→21:29)
[2020-06-30] MEDS ORDERED: Ondansetron 4 MG/2 ML SDV IVPUSH ONE (20:02)
--- NOTE | 2020-06-30 21:09 | CT ---
CT lumbar spine Technique: Multiple axial sections were obtained through the lumbar spine. Reconstructed coronal and sagittal images were obtained. Findings: L1-2: Moderate disc space narrowing is seen. Posterior disc has a concave margin. No central canal stenosis or neural foraminal stenosis is seen. L2-3: Minimal retrolisthesis is seen due to degenerative apophyseal change. Slight circumferential disc bulge is seen. Posterior disc maintains a mostly concave margin. No central canal stenosis is seen. Neural foramina appear to be patent where the nerve roots exit. This disc is also mildly narrowed. L3-4: Mild posterior disc space narrowing is seen. Slight circumferential disc bulge is seen. Posterior disc maintains a mostly planar margin. Degenerative apophyseal change is noted. No central canal stenosis is seen. Neural foramina are patent where the nerve roots exit. L3-4: Degenerative apophyseal change is seen. Slight circumferential disc bulge is noted. Posterior disc maintains a planar margin. No central canal stenosis is seen. Neural foramina are patent where the nerve roots exit. L4-5: Anterior spondylolisthesis is seen. Severe degenerative apophyseal change is noted. Spondylolisthesis measures approximately 6 mm. Central canal is somewhat deformed and narrowed. Neural foramina on the right side shows compromise by bulging disc. Left neural foramen appears to be patent where the nerve roots exit. L5-S1: Severe degenerative apophyseal change i noted. Circumferential disc bulge is seen. No central canal stenosis is seen. Neural foramina appear patent where the nerve roots exit. No fracture is appreciated. Scattered anterior and lateral endplate osteophytes are seen. Diffuse atherosclerotic calcification is noted within the thoracic aorta. Vacuum phenomena and mild degenerative change is seen within the sacroiliac joints. Impression: 1. Diffuse degenerative change as noted above. 2. Findings most severe at L4-5 with spondylolisthesis due to severe degenerative apophyseal change. 3. Nothing acute is seen. Diagnostic code #3 This report was dictated in MDT
--- NOTE | 2020-06-30 21:10 | CT ---
CT thoracic spine Technique: Multiple axial sections through the thoracic spine were obtained. Reconstructed coronal and sagittal images were obtained. Findings: Artifact from electrostimulating device being located within the posterior central canal of the lower thoracic spine is seen. Mild diffuse disc space narrowing throughout the thoracic spine is noted. Vertebral body heights are maintained. Mild diffuse degenerative apophyseal change is noted throughout the thoracic spine. No bony central or bony neural foraminal stenosis is seen. No abnormal subluxation is appreciated. There is degenerative change which is poorly seen within the cervical spine. Thoracic spine shows no discrete disc herniation although MRI would be more sensitive for the soft tissues. Impression: 1. Diffuse degenerative change as noted above. 2. Artifact from electrostimulating device. 3. If further evaluation for disc herniation is desired, MRI would be needed. 4. Nothing acute is appreciated. Diagnostic code #3 This report was dictated in MDT
[2020-06-30] MEDS ORDERED: Cyclobenzaprine 10 MG Tab PO ONE (21:30)
[2020-06-30] MEDS ORDERED: Lidocaine 5% 700 MG Patch TOP ONE (21:31)
--- NOTE | 2020-06-30 21:54 | EDM.PDOC ---
ED HPI GENERAL MEDICAL PROBLEM - General Chief Complaint: Back Pain or Injury Stated Complaint: LOWER BACK PAIN X 24 HOURS Time Seen by Provider: 06/30/20 19:33 - History of Present Illness INITIAL COMMENTS - FREE TEXT/NARRATIVE: HISTORY AND PHYSICAL: History of present illness: This is an 85-year-old female who presents ER today complaining of lower back pain x1 day. Patient reports that she does have a history significant for chronic lower back pain and has a neurostimulator still in place but is currently not working. Patient denies any recent fevers, shakes, chills, nausea, vomiting, diarrhea, dysuria, frequency, urgency, hematuria. Patient reports she does have a history significant for urinary tract infection in the past however this feels significantly different. Patient denies any loss of bowel or bladder function. Patient denies any paresthesias around her perineal region. Patient denies any weakness to her upper or lower extremities. Patient reports that she has been able to ambulate however with significant discomfort. Review of systems: As per history of present illness and below otherwise all systems reviewed and negative. Past medical history: As per history of present illness and as reviewed below otherwise noncontributory. Surgical history: As per history of present illness and as reviewed below otherwise noncontributory. Social history: No reported history of drug or alcohol abuse. Family history: As per history of present illness and as reviewed below otherwise noncontributory. Physical exam: Constitutional: Patient is oriented to person, place, and time. Appears well- developed and well-nourished. No distress. HEENT: Moist mucous membranes Head: Normocephalic and atraumatic Eyes: Right eye exhibits no discharge. Left eye exhibits no discharge. No scleral icterus Neck: Normal range of motion. No tracheal deviation present. Cardiovascular: Normal rate and regular rhythm. Pulmonary: Effort normal, no respiratory distress. Abdominal: No distention Musculoskeletal: Normal range of motion Neurologic: Alert and oriented to person, place and time. Skin: [place], warm and dry. Psychiatric: Normal mood and affect. Behavior is normal. Judgment and thought content normal. Nursing note and vital signs have been reviewed Patient's ER physical exam is significant for tenderness to palpation to her upper lower back. Neuro: A&Ox3. Cranial nerves II-XII grossly intact, 5/5 strength to bilateral upper and lower extremities, sensation intact to bilateral upper and lower extremities, no nystagmus, PERRLA, EOMI, normal speech, proprioception intact to bilateral lower extremities, normal finger to nose test, gait normal Diagnostics: CT scan of the lumbar and thoracic spine reveals no acute pathology. Therapeutics: Patient had been given fentanyl 50 mics x2, Toradol 15 mg IV, Lidoderm patch, Flexeril 10 mg p.o. Patient was reevaluated in the ED at approximately 9 PM and reports pain is significantly improved but is still having some discomfort. Patient was given a second dose of fentanyl as well as a Lidoderm patch and Flexeril and will be discharged home with a prescription for Clementon, Lidoderm patch and Flexeril. Assessment and plan: This is an 85-year-old female who presents the ER today secondary to lower back pain. 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 Patient be discharged home with prescription for Clementon and Lidoderm patches. Patient has been instructed to follow-up with her primary care doctor in the next 24 to 48 hours for reevaluation. Reassessment at the time of disposition demonstrates that the patient is in no acute distress. The patient has remained stable throughout the entire ED visit and is without objective evidence for acute process requiring urgent intervention or hospitalization. The patient is stable for discharge, counseling is provided as documented above, discussed symptomatic treatment and specific conditions for return. I have spoken with the patient/caregive and discussed todays findings, in addition to providing specific details for the plan of care. Questions are answered and there is agreement with the plan. Definitive disposition and diagnosis as appropriate pending reevaluation and review of above. lower back Pain Score (Numeric/FACES): 10 - Related Data Allergies Allergy/AdvReac Type Severity Reaction Status Date / Time metronidazole Allergy Cannot Verified 06/30/20 19:39 Remember morphine Allergy Nausea and Verified 06/30/20 19:39 Vomiting Penicillins Allergy Swelling Verified 06/30/20 19:39 propoxyphene HCl Allergy Drowsiness Verified 06/30/20 19:39 [From Darvon] sulfamethoxazole Allergy Rash Verified 06/30/20 19:39 [From Bactrim] trimethoprim [From Bactrim] Allergy Rash Verified 06/30/20 19:39 Home Meds: Home Meds Venlafaxine [Effexor XR] 150 mg PO QPM 06/15/14 [History] rOPINIRole [Requip] 3 tab PO ASDIRECTED 06/15/14 [History] Latanoprost [Xalatan 0.005% Ophth Soln] 1 drop EYEBOTH BID 01/20/17 [History] Multivitamin [Daily Multiple Vitamin] 1 tab PO DAILY 01/20/17 [History] clonazePAM [Klonopin] 0.5 tab PO ASDIRECTED PRN 01/20/17 [History] metFORMIN [Glucophage XR] 500 mg PO BID 01/20/17 [History] Non-Formulary Medication [NF Drug] 0.5 mg IM ASDIRECTED 05/21/20 [History] Acetaminophen/HYDROcodone [Clementon 325-5 MG] 1 tab PO Q6H PRN #12 tablet 06/30/20 [Rx] Cholecalciferol (Vitamin D3) [Vitamin D] 5,000 unit PO 06/30/20 [History] Cyclobenzaprine [Flexeril] 10 mg PO TID PRN #20 tab 06/30/20 [Rx] Lidocaine 5% [Lidoderm 5%] 1 patch TOP DAILY PRN #7 patch 06/30/20 [Rx] Past Medical History HEENT History: Reports: Glaucoma, Hard of Hearing, Impaired Vision Other HEENT History: wears glasses, has upper denture and lower partial removable denture Cardiovascular History: Reports: High Cholesterol Respiratory History: Reports: Bronchitis, Recurrent Gastrointestinal History: Reports: Hepatitis Other Gastrointestinal History: Autoimmune Hepatitis, was treated with Prednisone for 2 years- liver now ok per patient 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: Reports: None CVT TECH History: Reports: Musculoskeletal History: Reports: Arthritis, Back Pain, Chronic, Fracture Other Musculoskeletal History: hx of fx foot Neurological History: Reports: Migraines, Other (See Below) Other Neuro History: HX of restless leg syndrome Psychiatric History: Reports: Anxiety, Depression Endocrine/Metabolic History: Reports: Diabetes, Type II, Obesity/BMI 30+ Other Endocrine/Metabolic History: recent dx of diabetes Hematologic History: Reports: None Immunologic History: Reports: None Oncologic (Cancer) History: Reports: None Dermatologic History: Reports: Other (See Below) Other Dermatologic History: rash on right arm and and legs - Infectious Disease History Infectious Disease History: Reports: Chicken Pox, Measles, Mumps Other Infectious Disease History: Autoiimune hepatitis - Past Surgical History HEENT Surgical History: Reports: Tonsillectomy, Other (See Below) GI Surgical History: Reports: Appendectomy, Cholecystectomy Female Surgical History: Reports: Hysterectomy, Other (See Below) Neurological Surgical History: Reports: Spinal Fusion Musculoskeletal Surgical History: Reports: Knee Replacement Social & Family History - Family History Family Medical History: Noncontributory Cardiac: Reports: High Cholesterol, [place] - Tobacco Use Smoking Status *Q: Never Smoker - Caffeine Use Caffeine Use: Reports: Coffee, Tea - Recreational Drug Use Recreational Drug Use: No ED ROS GENERAL - Review of Systems Review Of Systems: See Below ED EXAM, GENERAL - Physical Exam Exam: See Below Course - Vital Signs Last Recorded V/S: Last Vital Signs Temp 97.3 F 06/30/20 19:45 Pulse 94 06/30/20 19:45 Resp 18 06/30/20 19:45 BP 117/69 06/30/20 19:45 Pulse Ox 98 06/30/20 19:45 - Orders/Labs/Meds Orders: Active Orders 24 hr Category Date Time Status Sodium Chloride 0.9% [Saline Flush] Med 06/30/20 20:02 Active 10 ml FLUSH ASDIRECTED PRN Sodium Chloride 0.9% [Saline Flush] Med 06/30/20 20:02 Active 2.5 ml FLUSH ASDIRECTED PRN Saline Lock Insert [OM.PC] Stat Oth 06/30/20 20:02 Ordered Medication Orders Sodium Chloride (Saline Flush) 10 ml FLUSH ASDIRECTED PRN PRN Reason: Keep Vein Open Sodium Chloride (Saline Flush) 2.5 ml FLUSH ASDIRECTED PRN PRN Reason: Keep Vein Open Meds: Medications Generic Name Dose Route Start Last Admin Trade Name Freq PRN Reason Stop Dose Admin Sodium Chloride 10 ml 06/30/20 20:02 Saline Flush FLUSH ASDIRECTED PRN Keep Vein Open Sodium Chloride 2.5 ml 06/30/20 20:02 Saline Flush FLUSH ASDIRECTED PRN Keep Vein Open Discontinued Medications Generic Name Dose Route Start Last Admin Trade Name Freq PRN Reason Stop Dose Admin Cyclobenzaprine HCl 10 mg 06/30/20 21:30 Flexeril PO 06/30/20 21:31 ONETIME ONE Dexamethasone 4 mg 06/30/20 20:02 09/22/20 20:51 Dexamethasone IVPUSH 06/30/20 20:03 4 mg ONETIME ONE Administration Fentanyl 50 mcg 06/30/20 20:02 06/30/20 20:52 Fentanyl IVPUSH 06/30/20 20:03 50 mcg ONETIME ONE Administration Fentanyl 50 mcg 06/30/20 21:29 Fentanyl IVPUSH 06/30/20 21:30 ONETIME ONE Ketorolac Tromethamine 15 mg 06/30/20 20:02 06/30/20 20:52 Toradol IVPUSH 06/30/20 20:03 15 mg ONETIME ONE Administration Lidocaine 700 mg 06/30/20 21:31 Lidoderm 5% TOP 06/30/20 21:32 ONETIME ONE Ondansetron HCl 4 mg 06/30/20 20:02 06/30/20 20:51 Zofran IVPUSH 06/30/20 20:03 4 mg ONETIME ONE Administration Departure - Departure Time of Disposition: 21:51 Disposition: Home, Self-Care 01 Condition: Good Clinical Impression: Low back pain - Discharge Information Instructions: Acute Back Pain, Adult Referrals: Florian Iqbal MD [Primary Care Provider] - Additional Instructions: You have been given a prescription for Lidoderm patches to use to assist with your back pain. You have also been given a prescription for Clementon and Flexeril. Please be careful when you use these medicines and they will make you sleepy and can possibly increase your risk of falling. Please make an appointment to see your family doctor in the next 1 to 2 days to be reevaluated so they can assist you with treating your back pain. The following information is given to patients seen in the emergency department who are being discharged to home. This information is to outline your options for follow-up care. We provide all patients seen in our emergency department with a follow-up referral. The need for follow-up, as well as the timing and circumstances, are variable depending upon the specifics of your emergency department visit. If you don't have a primary care physician on staff, we will provide you with a referral. We always advise you to contact your personal physician following an emergency department visit to inform them of the circumstance of the visit and for follow-up with them and/or the need for any referrals to a consulting specialist. The emergency department will also refer you to a specialist when appropriate. This referral assures that you have the opportunity for follow-up care with a specialist. All of these measure are taken in an effort to provide you with optimal care, which includes your follow-up. Under all circumstances we always encourage you to contact your private physician who remains a resource for coordinating your care. When calling for follow-up care, please make the office aware that this follow-up is from your recent emergency room visit. If for any reason you are refused follow-up, please contact the [facility] Emergency Department at and asked to speak to the emergency department charge nurse. Sepsis Event Note (ED) - Evaluation Sepsis Screening Result: No Definite Risk - Focused Exam Vital Signs: Vital Signs Temp Pulse Resp BP Pulse Ox 06/30/20 19:45 97.3 F 94 18 117/69 98 - My Orders Last 24 Hours: My Active Orders 06/30/20 20:02 Sodium Chloride 0.9% [Saline Flush] 10 ml FLUSH ASDIRECTED PRN Sodium Chloride 0.9% [Saline Flush] 2.5 ml FLUSH ASDIRECTED PRN Saline Lock Insert [OM.PC] Stat - Assessment/Plan Last 24 Hours: My Active Orders 06/30/20 20:02 Sodium Chloride 0.9% [Saline Flush] 10 ml FLUSH ASDIRECTED PRN Sodium Chloride 0.9% [Saline Flush] 2.5 ml FLUSH ASDIRECTED PRN Saline Lock Insert [OM.PC] Stat
== END 2020-06-30 22:30 | disposition home or self-care (01) ==
LOC: MW.ED 19:22
DX: M54.5 Low back pain (principal); F41.9 Anxiety disorder, unspecified; F32.9 Major depressive disorder, single episode, unspecified; E11.9 Type 2 diabetes mellitus without complications; E66.9 Obesity, unspecified; Z68.34 Body mass index [BMI] 34.0-34.9, adult; Z88.5 Allergy status to narcotic agent; Z88.8 Allergy status to other drugs, medicaments and biological substances; Z88.0 Allergy status to penicillin; Z88.2 Allergy status to sulfonamides; Z79.899 Other long term (current) drug therapy; Z79.84 Long term (current) use of oral hypoglycemic drugs
CPT/HCPCS: 72128; 72131; 96374; 96375; 99283; A9270; J1100; J1885; J2405; J3010

== ENCOUNTER 2020-07-04 14:36 | Observation (INO) | payer MEDICARE, OTHER ==
[2020-07-04] MEDS ORDERED: Sodium Chloride 0.9% 2.5 ML Syringe FLUSH PRN (15:21)
[2020-07-04] MEDS ORDERED: Lactated Ringers 1,000 ML IV ONE (15:21)
[2020-07-04] MEDS ORDERED: Sodium Chloride 0.9% 10 ML Syringe FLUSH PRN (15:21)
[2020-07-04] MEDS ORDERED: Acetaminophen 325 MG/10.15 ML ML PO ONE (15:21)
--- NOTE | 2020-07-04 15:33 | EDM.PDOC ---
ED HPI GENERAL MEDICAL PROBLEM - General Chief Complaint: General Stated Complaint: FALL Time Seen by Provider: 07/04/20 14:54 Source of Information: Reports: Patient History Limitations: Reports: No Limitations - History of Present Illness INITIAL COMMENTS - FREE TEXT/NARRATIVE: 85-year-old female presents with generalized weakness. She fell at 8:00 this morning in her house secondary to the weakness and landed on her buttock and has been too weak to get up off the ground since the fall. She crawled around on her knees. Patient denies hitting her head, headache, neck pain, fever, chills, headache, chest pain, shortness of breath, abdominal pain, focal numbness or weakness. ROS: A 10-point review of systems, other than pertinent positives and negatives as stated per HPI, is otherwise negative Past medical history: No additional pertinent history Past Surgical history: No additional pertinent history Social history: No additional pertinent history Family history: No additional pertinent history PHYSICAL EXAM General: AOx4, GCS = 15, No distress HEENT: dry mucous membrane Neck: supple, no meningismus, no Kernig or Brudzinski Cardiac: S1S2 RRR Respiratory: CTAB, no crackles or rales, no wheezing Abdomen: Soft, nontender, no rebound or guarding, nondistended, no pulsatile mas s. Back: nontender Musculoskeletal: NVI distally, no deformity, bilateral knee contusion. Neuro: No focal deficits, CN 2 - 12 WNL. Bilateral knees, bilateral hip, L arm Pain Score (Numeric/FACES): 6 - Related Data Allergies Allergy/AdvReac Type Severity Reaction Status Date / Time metronidazole Allergy Cannot Verified 07/04/20 15:00 Remember morphine Allergy Nausea and Verified 07/04/20 15:00 Vomiting Penicillins Allergy Swelling Verified 07/04/20 15:00 propoxyphene HCl Allergy Drowsiness Verified 07/04/20 15:00 [From Darvon] sulfamethoxazole Allergy Rash Verified 07/04/20 15:00 [From Bactrim] trimethoprim [From Bactrim] Allergy Rash Verified 07/04/20 15:00 Home Meds: Home Meds Venlafaxine [Effexor XR] 150 mg PO QPM 06/15/14 [History] rOPINIRole [Requip] 3 tab PO ASDIRECTED 06/15/14 [History] Latanoprost [Xalatan 0.005% Ophth Soln] 1 drop EYEBOTH BID 01/20/17 [History] Multivitamin [Daily Multiple Vitamin] 1 tab PO DAILY 01/20/17 [History] clonazePAM [Klonopin] 0.5 tab PO ASDIRECTED PRN 01/20/17 [History] metFORMIN [Glucophage XR] 500 mg PO BID 01/20/17 [History] Non-Formulary Medication [NF Drug] 0.5 mg IM ASDIRECTED 05/21/20 [History] Acetaminophen/HYDROcodone [[place] 325-5 MG] 1 tab PO Q6H PRN #12 tablet 06/30/20 [Rx] Cholecalciferol (Vitamin D3) [Vitamin D] 5,000 unit PO 06/30/20 [History] Cyclobenzaprine [Flexeril] 10 mg PO TID PRN #20 tab 06/30/20 [Rx] Lidocaine 5% [Lidoderm 5%] 1 patch TOP DAILY PRN #7 patch 06/30/20 [Rx] Past Medical History HEENT History: Reports: Glaucoma, Hard of Hearing, Impaired Vision Other HEENT History: wears glasses, has upper denture and lower partial removable denture Cardiovascular History: Reports: High Cholesterol Respiratory History: Reports: Bronchitis, Recurrent Gastrointestinal History: Reports: Hepatitis Other Gastrointestinal History: Autoimmune Hepatitis, was treated with Prednisone for 2 years- liver now ok per patient 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: Reports: None [employer] History: Reports: Musculoskeletal History: Reports: Arthritis, Back Pain, Chronic, Fracture Other Musculoskeletal History: hx of fx foot Neurological History: Reports: Migraines, Other (See Below) Other Neuro History: HX of restless leg syndrome Psychiatric History: Reports: Anxiety, Depression Endocrine/Metabolic History: Reports: Diabetes, Type II, Obesity/BMI 30+ Other Endocrine/Metabolic History: recent dx of diabetes Hematologic History: Reports: None Immunologic History: Reports: None Oncologic (Cancer) History: Reports: None Dermatologic History: Reports: Other (See Below) Other Dermatologic History: rash on right arm and and legs - Infectious Disease History Infectious Disease History: Reports: Chicken Pox, Measles, Mumps Other Infectious Disease History: Autoiimune hepatitis - Past Surgical History HEENT Surgical History: Reports: Tonsillectomy, Other (See Below) GI Surgical History: Reports: Appendectomy, Cholecystectomy Female Surgical History: Reports: Hysterectomy, Other (See Below) Neurological Surgical History: Reports: Spinal Fusion Musculoskeletal Surgical History: Reports: Knee Replacement Social & Family History - Family History Family Medical History: Noncontributory Cardiac: Reports: High Cholesterol, NM - Caffeine Use Caffeine Use: Reports: Coffee, Tea ED ROS GENERAL - Review of Systems Review Of Systems: Comprehensive ROS is negative, except as noted in HPI. ED EXAM, GENERAL - Physical Exam Exam: See Below (see dictation) EKG INTERPRETATION EKG Interpretation Comments: 134, sinus tachycardia, left anterior fascicular block, normal QRS interval, no STEMI. EKG and rhythm strip interpreted by me Course - Vital Signs Last Recorded V/S: Last Vital Signs Temp 97.4 F 07/04/20 14:38 Pulse 104 H 07/04/20 16:15 Resp 19 07/04/20 16:15 BP 121/69 07/04/20 16:15 Pulse Ox 96 07/04/20 16:15 - Orders/Labs/Meds Orders: Active Orders 24 hr Category Date Time Status Cardiac Monitoring [RC] . DIRECTED Care 07/04/20 15:21 Active EKG Documentation Completion [RC] STAT Care 07/04/20 15:22 Active Pulse Oximetry [RC] ASDIRECTED Care 07/04/20 15:21 Active CORONAVIRUS COVID-19 MIRNA [MOLEC] Stat Lab 07/04/20 16:16 Received Sodium Chloride 0.9% [Saline Flush] Med 07/04/20 15:21 Active 10 ml FLUSH ASDIRECTED PRN Sodium Chloride 0.9% [Saline Flush] Med 07/04/20 15:21 Active 2.5 ml FLUSH ASDIRECTED PRN Saline Lock Insert [OM.PC] Stat Oth 07/04/20 15:21 Ordered Medication Orders Sodium Chloride (Saline Flush) 10 ml FLUSH ASDIRECTED PRN PRN Reason: Keep Vein Open Sodium Chloride (Saline Flush) 2.5 ml FLUSH ASDIRECTED PRN PRN Reason: Keep Vein Open Labs: Laboratory Tests 07/04/20 07/04/20 07/04/20 Range/Units 15:15 15:15 15:15 WBC 11.33 H (4.0-11.0) K/uL RBC 4.69 (4.30-5.90) M/uL Hgb 14.4 (12.0-16.0) g/dL Hct 43.5 (36.0-46.0) % MCV 92.8 (80.0-98.0) fL MCH 30.7 (27.0-32.0) pg MCHC 33.1 (31.0-37.0) g/dL RDW Std Deviation 46.6 (28.0-62.0) fl RDW Coeff of Angel 14 (11.0-15.0) % Plt Count 288 (150-400) K/uL MPV 10.30 (7.40-12.00) fL Neut % (Auto) 78.9 (48.0-80.0) % Lymph % (Auto) 13.4 L (16.0-40.0) % [place] % (Auto) 6.9 (0.0-15.0) % Eos % (Auto) 0.6 (0.0-7.0) % Baso % (Auto) 0.2 (0.0-1.5) % Neut # (Auto) 8.9 H (1.4-5.7) K/uL Lymph # (Auto) 1.5 (0.6-2.4) K/uL [place] # (Auto) 0.8 (0.0-0.8) K/uL Eos # (Auto) 0.1 (0.0-0.7) K/uL Baso # (Auto) 0.0 (0.0-0.1) K/uL Nucleated RBC % 0.0 /100WBC Nucleated RBCs # 0 K/uL INR 1.04 Sodium 137 (136-145) mmol/L Potassium 4.8 (3.5-5.1) mmol/L Chloride 100 (98-107) mmol/L Carbon Dioxide 24.8 (21.0-32.0) mmol/L BUN 22 H (7.0-18.0) mg/dL Creatinine 1.2 H (0.6-1.0) mg/dL Est Cr Clr Drug Dosing 29.67 mL/min Estimated GFR (MDRD) 42.5 ml/min Glucose 133 H (74-106) mg/dL Calcium 9.0 (8.5-10.1) mg/dL Magnesium 2.2 (1.8-2.4) mg/dL Total Bilirubin 1.0 (0.2-1.0) mg/dL AST 86 H (15-37) IU/L ALT 54 (14-63) IU/L Alkaline Phosphatase 114 (46-116) U/L Creatine Kinase 2924 H (26-308) U/L Troponin I < 0.050 (0.000-0.056) ng/mL Total Protein 7.4 (6.4-8.2) g/dL Albumin 3.7 (3.4-5.0) g/dL Globulin 3.7 (2.6-4.0) g/dL Albumin/Globulin Ratio 1.0 (0.9-1.6) Urine Color Urine Appearance Urine pH (5.0-8.0) Ur Specific [place] (1.001-1.035) Urine Protein (NEGATIVE) mg/dL Urine Glucose (UA) (NEGATIVE) mg/dL Urine Ketones (NEGATIVE) mg/dL Urine Occult Blood (NEGATIVE) Urine Nitrite (NEGATIVE) Urine Bilirubin (NEGATIVE) Urine Urobilinogen (<2.0) EU/dL Ur Leukocyte Esterase (NEGATIVE) Urine RBC (0-2/HPF) Urine WBC (0-5/HPF) Ur Epithelial Cells (NONE-FEW) Urine Bacteria (NEGATIVE) Urine Mucus (NONE-MOD) Urinalysis Comment 07/04/20 Range/Units 15:33 WBC (4.0-11.0) K/uL RBC (4.30-5.90) M/uL Hgb (12.0-16.0) g/dL Hct (36.0-46.0) % MCV (80.0-98.0) fL MCH (27.0-32.0) pg MCHC (31.0-37.0) g/dL RDW Std Deviation (28.0-62.0) fl RDW Coeff of Angel (11.0-15.0) % Plt Count (150-400) K/uL MPV (7.40-12.00) fL Neut % (Auto) (48.0-80.0) % Lymph % (Auto) (16.0-40.0) % [place] % (Auto) (0.0-15.0) % Eos % (Auto) (0.0-7.0) % Baso % (Auto) (0.0-1.5) % Neut # (Auto) (1.4-5.7) K/uL Lymph # (Auto) (0.6-2.4) K/uL [place] # (Auto) (0.0-0.8) K/uL Eos # (Auto) (0.0-0.7) K/uL Baso # (Auto) (0.0-0.1) K/uL Nucleated RBC % /100WBC Nucleated RBCs # K/uL INR Sodium (136-145) mmol/L Potassium (3.5-5.1) mmol/L Chloride (98-107) mmol/L Carbon Dioxide (21.0-32.0) mmol/L BUN (7.0-18.0) mg/dL Creatinine (0.6-1.0) mg/dL Est Cr Clr Drug Dosing mL/min Estimated GFR (MDRD) ml/min Glucose (74-106) mg/dL Calcium (8.5-10.1) mg/dL Magnesium (1.8-2.4) mg/dL Total Bilirubin (0.2-1.0) mg/dL AST (15-37) IU/L ALT (14-63) IU/L Alkaline Phosphatase (46-116) U/L Creatine Kinase (26-308) U/L Troponin I (0.000-0.056) ng/mL Total Protein (6.4-8.2) g/dL Albumin (3.4-5.0) g/dL Globulin (2.6-4.0) g/dL Albumin/Globulin Ratio (0.9-1.6) Urine Color YELLOW Urine Appearance CLEAR Urine pH 5.5 (5.0-8.0) Ur Specific [place] 1.025 (1.001-1.035) Urine Protein NEGATIVE (NEGATIVE) mg/dL Urine Glucose (UA) NEGATIVE (NEGATIVE) mg/dL Urine Ketones 15 H (NEGATIVE) mg/dL Urine Occult Blood TRACE-INTACT H (NEGATIVE) Urine Nitrite NEGATIVE (NEGATIVE) Urine Bilirubin NEGATIVE (NEGATIVE) Urine Urobilinogen 0.2 (<2.0) EU/dL Ur Leukocyte Esterase SMALL H (NEGATIVE) Urine RBC 0-2 (0-2/HPF) Urine WBC 0-3 (0-5/HPF) Ur Epithelial Cells FEW (NONE-FEW) Urine Bacteria FEW (NEGATIVE) Urine Mucus LIGHT (NONE-MOD) Urinalysis Comment Meds: Medications Generic Name Dose Route Start Last Admin Trade Name Freq PRN Reason Stop Dose Admin Sodium Chloride 10 ml 07/04/20 15:21 Saline Flush FLUSH ASDIRECTED PRN Keep Vein Open Sodium Chloride 2.5 ml 07/04/20 15:21 Saline Flush FLUSH ASDIRECTED PRN Keep Vein Open Discontinued Medications Generic Name Dose Route Start Last Admin Trade Name Freq PRN Reason Stop Dose Admin Acetaminophen 1,000 mg 07/04/20 15:21 07/04/20 15:52 Tylenol PO 07/04/20 15:22 1,000 mg ONETIME ONE Administration Lactated Ringer's 1,000 mls @ 999 mls/hr 07/04/20 15:21 07/04/20 15:50 Ringers, Lactated IV 07/04/20 16:21 999 mls/hr .BOLUS ONE Administration - Re-Assessments/Exams Free Text/Narrative Re-Assessment/Exam: 07/04/20 17:[address] Ervin, who agrees to admit patient. The hospitalist's documentation supersedes all other documentation on this patient with regard to any conflicts or discrepancies from this point forward. Any emergency conditions have been treated to the ability of the ED prior to admission. Departure - Departure Time of Disposition: 17:03 Disposition: Refer to Observation Condition: Good Clinical Impression: Rhabdomyolysis, Weakness - Discharge Information *PRESCRIPTION DRUG MONITORING PROGRAM REVIEWED*: Not Applicable *COPY OF PRESCRIPTION DRUG MONITORING REPORT IN PATIENT NAOMI: Not Applicable Instructions: Rhabdomyolysis Referrals: PCP,None [Primary Care Provider] - Forms: ED Department Discharge Sepsis Event Note (ED) - Evaluation Sepsis Screening Result: No Definite Risk - Focused Exam Vital Signs: Vital Signs Temp Pulse Resp BP Pulse Ox 07/04/20 16:15 104 H 19 121/69 96 07/04/20 15:00 137 H 20 114/63 93 L 07/04/20 14:38 97.4 F 134 H 20 96/59 L 95 - My Orders Last 24 Hours: My Active Orders 07/04/20 15:21 Cardiac Monitoring [RC] . DIRECTED Pulse Oximetry [RC] ASDIRECTED Sodium Chloride 0.9% [Saline Flush] 10 ml FLUSH ASDIRECTED PRN Sodium Chloride 0.9% [Saline Flush] 2.5 ml FLUSH ASDIRECTED PRN Saline Lock Insert [OM.PC] Stat 07/04/20 15:22 EKG Documentation Completion [RC] STAT 07/04/20 16:16 CORONAVIRUS COVID-19 MIRNA [MOLEC] Stat - Assessment/Plan Last 24 Hours: My Active Orders 07/04/20 15:21 Cardiac Monitoring [RC] . DIRECTED Pulse Oximetry [RC] ASDIRECTED Sodium Chloride 0.9% [Saline Flush] 10 ml FLUSH ASDIRECTED PRN Sodium Chloride 0.9% [Saline Flush] 2.5 ml FLUSH ASDIRECTED PRN Saline Lock Insert [OM.PC] Stat 07/04/20 15:22 EKG Documentation Completion [RC] STAT 07/04/20 16:16 CORONAVIRUS COVID-19 MIRNA [MOLEC] Stat
[2020-07-04 15:50] LABS: BLOOD UREA NITROGEN,BUN 22 mg/dL (7.0-18.0); CARBON DIOXIDE,CO2 24.8 mmol/L (21.0-32.0); CHLORIDE,CL 100 mmol/L (98-107); GLUCOSE RANDOM 133 mg/dL (74-106); POTASSIUM,K 4.8 mmol/L (3.5-5.1); SODIUM,NA 137 mmol/L (136-145)
--- NOTE | 2020-07-04 16:28 | CR ---
Chest: Portable view of the chest was obtained. Comparison: Prior chest x-ray of 06/22/20. Heart size and mediastinum are normal. Lungs are clear with no acute parenchymal change. Minimal atelectasis is noted within the left base. Bony structures are grossly intact. Impression: 1. Minimal left basilar atelectasis. 2. Nothing acute is appreciated. Diagnostic code #2 This report was dictated in MDT
[2020-07-04] MEDS: Sodium Chloride 0.9% 1,000 ML IV SCH (20:47)
[2020-07-04] MEDS: Acetaminophen/HYDROcodone 325-5 MG Tab PO PRN (20:47)
--- NOTE | 2020-07-04 22:57 | PCM.HP.2 ---
H&P History of Present Illness - General Date of Service: 07/04/20 Admit Problem/Dx: Admission Diagnosis/Problem Admission Diagnosis/Problem Rhabdomyolysis - History of Present Illness Initial Comments - Free Text/Narative: 85 yo female with pmh of fibromyalgia who presented to the ED following a fall. Patient reported was on the floor for six hours as she was unable to get up her self. PAtient states she believes she lost her balance because she took the norco and muscle relaxer at the same time. Patient reports she was recently started on norco for her fibromyalgia pain which is mainly in her hips. Patient curently denies any hip pain. Bilateral knees, bilateral hip, L arm Pain Score (Numeric/FACES): 6 - Related Data Allergies/Adverse Reactions: Allergies Allergy/AdvReac Type Severity Reaction Status Date / Time metronidazole Allergy Cannot Verified 07/04/20 19:54 Remember morphine Allergy Nausea and Verified 07/04/20 19:54 Vomiting Penicillins Allergy Swelling Verified 07/04/20 19:54 propoxyphene HCl Allergy Drowsiness Verified 07/04/20 19:54 [From Darvon] sulfamethoxazole Allergy Rash Verified 07/04/20 19:54 [From Bactrim] trimethoprim [From Bactrim] Allergy Rash Verified 07/04/20 19:54 Home Medications: Home Meds Venlafaxine [Effexor XR] 150 mg PO QPM 06/15/14 [History] rOPINIRole [Requip] 1.5 tab PO BEDTIME 06/15/14 [History] Latanoprost [Xalatan 0.005% Ophth Soln] 1 drop EYEBOTH BEDTIME 01/20/17 [History] Multivitamin [Daily Multiple Vitamin] 1 tab PO DAILY 01/20/17 [History] metFORMIN [Glucophage XR] 500 mg PO BIDMEALS 01/20/17 [History] Non-Formulary Medication [NF Drug] 0.5 mg IM ASDIRECTED 05/21/20 [History] Acetaminophen/HYDROcodone [[place] 325-5 MG] 1 tab PO Q6H PRN #12 tablet 06/30/20 [Rx] Cyclobenzaprine [Flexeril] 10 mg PO TID PRN #20 tab 06/30/20 [Rx] Lidocaine 5% [Lidoderm 5%] 1 patch TOP DAILY PRN #7 patch 06/30/20 [Rx] Cyanocobalamin (Vitamin B-12) [B-12] 1,000 mcg PO DAILY 07/05/20 [History] Sennosides [Senna Lax] 1 - 2 tab PO DAILY 07/05/20 [History] Trimethoprim 100 mg PO BEDTIME 07/05/20 [History] clonazePAM ODT 0.5 mg SL TID PRN 07/05/20 [History] Past Medical History HEENT History: Reports: Glaucoma, Hard of Hearing, Impaired Vision Other HEENT History: wears glasses, has upper denture and lower partial removable denture Cardiovascular History: Reports: High Cholesterol, Hypertension Respiratory History: Reports: Bronchitis, Recurrent Gastrointestinal History: Reports: Hepatitis Other Gastrointestinal History: Autoimmune Hepatitis, was treated with Prednisone for 2 years- liver now ok per patient 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: Reports: None FLY TIER History: Reports: Musculoskeletal History: Reports: Arthritis, Back Pain, Chronic, Fracture Other Musculoskeletal History: hx of fx foot Neurological History: Reports: Migraines, Other (See Below) Other Neuro History: HX of restless leg syndrome Psychiatric History: Reports: Anxiety, Depression Endocrine/Metabolic History: Reports: Diabetes, Type II, Obesity/BMI 30+ Other Endocrine/Metabolic History: recent dx of diabetes Hematologic History: Reports: None Immunologic History: Reports: None Oncologic (Cancer) History: Reports: None Dermatologic History: Reports: Other (See Below) Other Dermatologic History: rash on right arm and and legs - Infectious Disease History Infectious Disease History: Reports: Chicken Pox, Measles, Mumps Other Infectious Disease History: Autoiimune hepatitis - Past Surgical History HEENT Surgical History: Reports: Tonsillectomy, Other (See Below) Cardiovascular Surgical History: Reports: None Respiratory Surgical History: Reports: None GI Surgical History: Reports: Appendectomy, Cholecystectomy Female Surgical History: Reports: Hysterectomy, Other (See Below) Endocrine Surgical History: Reports: None Neurological Surgical History: Reports: Spinal Fusion Musculoskeletal Surgical History: Reports: Knee Replacement Dermatological Surgical History: Reports: None Social & Family History - Family History Family Medical History: Noncontributory HEENT: Reports: Glaucoma Cardiac: Reports: High Cholesterol, [place] Psychiatric: Reports: Anxiety, Depression Oncologic: Reports: Lymphoma - Tobacco Use Smoking Status *Q: Never Smoker Second Hand Smoke Exposure: No - Caffeine Use Caffeine Use: Reports: Coffee, Tea - Recreational Drug Use Recreational Drug Use: No H&P Review of Systems - Review of Systems: Review Of Systems: Comprehensive ROS is negative, except as noted in HPI. Exam - Exam Exam: See Below - Vital Signs Vital Signs: Last Vital Signs Temp 36.0 C L 07/04/20 18:38 Pulse 82 07/04/20 18:38 Resp 18 07/04/20 18:38 BP 124/53 L 07/04/20 18:38 Pulse Ox 96 07/04/20 19:56 Weight: 96.162 kg - Exam General: Alert, Oriented HEENT: Mucosa Moist & [place] Lungs: Clear to Auscultation, Normal Respiratory Effort Cardiovascular: Regular Rate, Regular Rhythm GI/Abdominal Exam: Normal Bowel Sounds, Soft, Non-Tender Extremities: Non-Tender, No Pedal Edema Skin: Warm, Dry, Intact - Patient Data Lab Results Last 24 hrs: Laboratory Results - last 24 hr 07/04/20 07/04/20 07/04/20 Range/Units 15:15 15:15 15:15 WBC 11.33 H (4.0-11.0) K/uL RBC 4.69 (4.30-5.90) M/uL Hgb 14.4 (12.0-16.0) g/dL Hct 43.5 (36.0-46.0) % MCV 92.8 (80.0-98.0) fL MCH 30.7 (27.0-32.0) pg MCHC 33.1 (31.0-37.0) g/dL RDW Std Deviation 46.6 (28.0-62.0) fl RDW Coeff of Angel 14 (11.0-15.0) % Plt Count 288 (150-400) K/uL MPV 10.30 (7.40-12.00) fL Neut % (Auto) 78.9 (48.0-80.0) % Lymph % (Auto) 13.4 L (16.0-40.0) % [place] % (Auto) 6.9 (0.0-15.0) % Eos % (Auto) 0.6 (0.0-7.0) % Baso % (Auto) 0.2 (0.0-1.5) % Neut # (Auto) 8.9 H (1.4-5.7) K/uL Lymph # (Auto) 1.5 (0.6-2.4) K/uL [place] # (Auto) 0.8 (0.0-0.8) K/uL Eos # (Auto) 0.1 (0.0-0.7) K/uL Baso # (Auto) 0.0 (0.0-0.1) K/uL Nucleated RBC % 0.0 /100WBC Nucleated RBCs # 0 K/uL INR 1.04 Sodium 137 (136-145) mmol/L Potassium 4.8 (3.5-5.1) mmol/L Chloride 100 (98-107) mmol/L Carbon Dioxide 24.8 (21.0-32.0) mmol/L BUN 22 H (7.0-18.0) mg/dL Creatinine 1.2 H (0.6-1.0) mg/dL Est Cr Clr Drug Dosing 29.67 mL/min Estimated GFR (MDRD) 42.5 ml/min Glucose 133 H (74-106) mg/dL Calcium 9.0 (8.5-10.1) mg/dL Magnesium 2.2 (1.8-2.4) mg/dL Total Bilirubin 1.0 (0.2-1.0) mg/dL AST 86 H (15-37) IU/L ALT 54 (14-63) IU/L Alkaline Phosphatase 114 (46-116) U/L Creatine Kinase 2924 H (26-308) U/L Troponin I < 0.050 (0.000-0.056) ng/mL Total Protein 7.4 (6.4-8.2) g/dL Albumin 3.7 (3.4-5.0) g/dL Globulin 3.7 (2.6-4.0) g/dL Albumin/Globulin Ratio 1.0 (0.9-1.6) Urine Color Urine Appearance Urine pH (5.0-8.0) Ur Specific [place] (1.001-1.035) Urine Protein (NEGATIVE) mg/dL Urine Glucose (UA) (NEGATIVE) mg/dL Urine Ketones (NEGATIVE) mg/dL Urine Occult Blood (NEGATIVE) Urine Nitrite (NEGATIVE) Urine Bilirubin (NEGATIVE) Urine Urobilinogen (<2.0) EU/dL Ur Leukocyte Esterase (NEGATIVE) Urine RBC (0-2/HPF) Urine WBC (0-5/HPF) Ur Epithelial Cells (NONE-FEW) Urine Bacteria (NEGATIVE) Urine Mucus (NONE-MOD) Urinalysis Comment SARS-CoV-2 RNA (MIRNA) (NEGATIVE) 07/04/20 07/04/20 Range/Units 15:33 16:16 WBC (4.0-11.0) K/uL RBC (4.30-5.90) M/uL Hgb (12.0-16.0) g/dL Hct (36.0-46.0) % MCV (80.0-98.0) fL MCH (27.0-32.0) pg MCHC (31.0-37.0) g/dL RDW Std Deviation (28.0-62.0) fl RDW Coeff of Angel (11.0-15.0) % Plt Count (150-400) K/uL MPV (7.40-12.00) fL Neut % (Auto) (48.0-80.0) % Lymph % (Auto) (16.0-40.0) % [place]cdonald % (Auto) (0.0-15.0) % Eos % (Auto) (0.0-7.0) % Baso % (Auto) (0.0-1.5) % Neut # (Auto) (1.4-5.7) K/uL Lymph # (Auto) (0.6-2.4) K/uL [place] # (Auto) (0.0-0.8) K/uL Eos # (Auto) (0.0-0.7) K/uL Baso # (Auto) (0.0-0.1) K/uL Nucleated RBC % /100WBC Nucleated RBCs # K/uL INR Sodium (136-145) mmol/L Potassium (3.5-5.1) mmol/L Chloride (98-107) mmol/L Carbon Dioxide (21.0-32.0) mmol/L BUN (7.0-18.0) mg/dL Creatinine (0.6-1.0) mg/dL Est Cr Clr Drug Dosing mL/min Estimated GFR (MDRD) ml/min Glucose (74-106) mg/dL Calcium (8.5-10.1) mg/dL Magnesium (1.8-2.4) mg/dL Total Bilirubin (0.2-1.0) mg/dL AST (15-37) IU/L ALT (14-63) IU/L Alkaline Phosphatase (46-116) U/L Creatine Kinase (26-308) U/L Troponin I (0.000-0.056) ng/mL Total Protein (6.4-8.2) g/dL Albumin (3.4-5.0) g/dL Globulin (2.6-4.0) g/dL Albumin/Globulin Ratio (0.9-1.6) Urine Color YELLOW Urine Appearance CLEAR Urine pH 5.5 (5.0-8.0) Ur Specific [place] 1.025 (1.001-1.035) Urine Protein NEGATIVE (NEGATIVE) mg/dL Urine Glucose (UA) NEGATIVE (NEGATIVE) mg/dL Urine Ketones 15 H (NEGATIVE) mg/dL Urine Occult Blood TRACE-INTACT H (NEGATIVE) Urine Nitrite NEGATIVE (NEGATIVE) Urine Bilirubin NEGATIVE (NEGATIVE) Urine Urobilinogen 0.2 (<2.0) EU/dL Ur Leukocyte Esterase SMALL H (NEGATIVE) Urine RBC 0-2 (0-2/HPF) Urine WBC 0-3 (0-5/HPF) Ur Epithelial Cells FEW (NONE-FEW) Urine Bacteria FEW (NEGATIVE) Urine Mucus LIGHT (NONE-MOD) Urinalysis Comment SARS-CoV-2 RNA (MIRNA) NEGATIVE (NEGATIVE) Result Diagrams: 07/05/20 05:47 07/05/20 05:47 Sepsis Event Note - Evaluation Sepsis Screening Result: No Definite Risk - Focused Exam Vital Signs: Vital Signs Temp Pulse Resp BP Pulse Ox 07/04/20 19:56 96 07/04/20 18:38 36.0 C L 82 18 124/53 L 94 L 07/04/20 16:15 104 H 19 121/69 96 07/04/20 15:00 137 H 20 114/63 93 L 07/04/20 14:38 36.3 C 134 H 20 96/59 L 95 Problem List Initiated/Reviewed/Updated: Yes Orders Last 24hrs: Active Orders 24 hr Category Date Time Status Patient Status [ADT] Routine ADT 07/04/20 17:06 Active Activity as Tolerated [RC] .Routine Care 07/04/20 19:57 Active Antiembolic Devices [RC] PER UNIT ROUTINE Care 07/04/20 22:50 Ordered Cardiac Monitoring [RC] . DIRECTED Care 07/04/20 15:21 Active Oxygen Therapy [RC] PRN Care 07/04/20 22:49 Ordered Pulse Oximetry [RC] ASDIRECTED Care 07/04/20 15:21 Active Telemetry Monitoring [Cardiac Monitoring] [RC] Q8H Care 07/04/20 17:45 Active Up ad Lesly [RC] ASDIRECTED Care 07/04/20 22:49 Ordered VTE/DVT Education [RC] PER UNIT ROUTINE Care 07/04/20 22:49 Ordered Vital Signs [RC] Q4H Care 07/04/20 19:56 Active Vital Signs [RC] Q4H Care 07/04/20 22:49 Ordered [place] [employer] Diet [DIET] Diet 07/05/20 Breakfast Active CBC WITH AUTO DIFF [HEME] AM Lab 07/05/20 05:11 Ordered COMPREHENSIVE METABOLIC PN,CMP [CHEM] AM Lab 07/05/20 05:11 Ordered CPK [CREATINE KINASE,CK] [CHEM] Routine Lab 07/04/20 22:52 Ordered CREATINE KINASE,CK [CHEM] AM Lab 07/05/20 05:11 Ordered Acetaminophen/HYDROcodone [[place] 325-5 MG] Med 07/04/20 19:55 Active 1 tab PO Q6H PRN ClonazePAM [KlonoPIN] Med 07/04/20 22:16 Active 0.25 mg PO BID PRN Latanoprost [Xalatan 0.005% Ophth Soln] Med 07/05/20 09:00 Pending DOSE ml EYEBOTH BID Sodium Chloride 0.9% [Normal Saline] 1,000 ml Med 07/04/20 20:00 Active IV ASDIRECTED Sodium Chloride 0.9% [Saline Flush] Med 07/04/20 15:21 Active 10 ml FLUSH ASDIRECTED PRN Sodium Chloride 0.9% [Saline Flush] Med 07/04/20 15:21 Active 2.5 ml FLUSH ASDIRECTED PRN Venlafaxine [Effexor XR] Med 07/05/20 18:00 Pending 150 mg PO QPM rOPINIRole [Requip] Med 07/04/20 22:30 Pending 0.25 mg PO ASDIRECTED Saline Lock Insert [OM.PC] Stat Oth 09/26/20 15:21 Ordered Sequential Compression Device [OM.PC] Per Unit Routine Oth 07/04/20 22:49 Ordered Resuscitation Status Routine Resus Stat 07/04/20 22:49 Ordered Medication Orders Hydrocodone Bitart/Acetaminophen ([place] 325-5 Mg) 1 tab PO Q6H PRN PRN Reason: Pain Last Admin: 07/04/20 20:47 Dose: 1 tab Documented by: SHERICE Clonazepam (Klonopin) 0.25 mg PO BID PRN PRN Reason: Anxiety Sodium Chloride (Normal Saline) 1,000 mls @ 150 mls/hr IV ASDIRECTED [facility] Last Admin: 07/04/20 20:47 Dose: 150 mls/hr Documented by: SHERICE Latanoprost (Xalatan 0.005% Ophth Soln) ml EYEBOTH BID [facility] Non-Formulary Medication (Ropinirole [Requip]) 0.25 mg PO ASDIRECTED [facility] Sodium Chloride (Saline Flush) 10 ml FLUSH ASDIRECTED PRN PRN Reason: Keep Vein Open Sodium Chloride (Saline Flush) 2.5 ml FLUSH ASDIRECTED PRN PRN Reason: Keep Vein Open Venlafaxine HCl (Effexor Xr) 150 mg PO QPM [facility] Assessment/Plan Comment:: 85 yo female admitted following a fall with rhabdomyolysis. We will hydrated with IV fluids, We will trend CPK.
[2020-07-04] MEDS ORDERED: rOPINIRole 1 MG Tab PO SCH (23:15)
[2020-07-04] MEDS: ClonazePAM 0.5 MG Tab PO PRN (23:42)
[2020-07-05 06:44] LABS: CARBON DIOXIDE,CO2 25.8 mmol/L (21.0-32.0); POTASSIUM,K 5.2 mmol/L (3.5-5.1)
[2020-07-05] MEDS: Sodium Chloride 0.9% 1,000 ML IV SCH ×2 (07:58→14:16)
[2020-07-05] MEDS ORDERED: rOPINIRole 1 MG Tab PO SCH ×3 (09:00→21:00)
--- NOTE | 2020-07-05 11:26 | PCM.PN ---
- General Info Date of Service: 07/05/20 - Review of Systems Systems Review Comment:: feeling better, denies any shortness of breath - Patient Data Vitals - Most Recent: Last Vital Signs Temp 36.5 C 07/05/20 08:00 Pulse 72 07/05/20 08:00 Resp 16 07/05/20 08:00 BP 111/54 L 07/05/20 08:00 Pulse Ox 95 07/05/20 08:00 Weight - Most Recent: 96.162 kg I&O - Last 24 Hours: Intake & Output 07/04/20 07/05/20 07/05/20 22:59 06:59 14:59 Intake Total 1341 Output Total 100 Balance 1241 Lab Results Last 24 Hours: Laboratory Results - last 24 hr 07/04/20 07/04/20 07/04/20 Range/Units 15:15 15:15 15:15 WBC 11.33 H (4.0-11.0) K/uL RBC 4.69 (4.30-5.90) M/uL Hgb 14.4 (12.0-16.0) g/dL Hct 43.5 (36.0-46.0) % MCV 92.8 (80.0-98.0) fL MCH 30.7 (27.0-32.0) pg MCHC 33.1 (31.0-37.0) g/dL RDW Std Deviation 46.6 (28.0-62.0) fl RDW Coeff of Angel 14 (11.0-15.0) % Plt Count 288 (150-400) K/uL MPV 10.30 (7.40-12.00) fL Neut % (Auto) 78.9 (48.0-80.0) % Lymph % (Auto) 13.4 L (16.0-40.0) % [place] % (Auto) 6.9 (0.0-15.0) % Eos % (Auto) 0.6 (0.0-7.0) % Baso % (Auto) 0.2 (0.0-1.5) % Neut # (Auto) 8.9 H (1.4-5.7) K/uL Lymph # (Auto) 1.5 (0.6-2.4) K/uL [place] # (Auto) 0.8 (0.0-0.8) K/uL Eos # (Auto) 0.1 (0.0-0.7) K/uL Baso # (Auto) 0.0 (0.0-0.1) K/uL Nucleated RBC % 0.0 /100WBC Nucleated RBCs # 0 K/uL INR 1.04 Sodium 137 (136-145) mmol/L Potassium 4.8 (3.5-5.1) mmol/L Chloride 100 (98-107) mmol/L Carbon Dioxide 24.8 (21.0-32.0) mmol/L BUN 22 H (7.0-18.0) mg/dL Creatinine 1.2 H (0.6-1.0) mg/dL Est Cr Clr Drug Dosing 29.67 mL/min Estimated GFR (MDRD) 42.5 ml/min Glucose 133 H (74-106) mg/dL POC Glucose (60-110) mg/dL Calcium 9.0 (8.5-10.1) mg/dL Magnesium 2.2 (1.8-2.4) mg/dL Total Bilirubin 1.0 (0.2-1.0) mg/dL AST 86 H (15-37) IU/L ALT 54 (14-63) IU/L Alkaline Phosphatase 114 (46-116) U/L Creatine Kinase 2924 H (26-308) U/L Troponin I < 0.050 (0.000-0.056) ng/mL Total Protein 7.4 (6.4-8.2) g/dL Albumin 3.7 (3.4-5.0) g/dL Globulin 3.7 (2.6-4.0) g/dL Albumin/Globulin Ratio 1.0 (0.9-1.6) Urine Color Urine Appearance Urine pH (5.0-8.0) Ur Specific [place] (1.001-1.035) Urine Protein (NEGATIVE) mg/dL Urine Glucose (UA) (NEGATIVE) mg/dL Urine Ketones (NEGATIVE) mg/dL Urine Occult Blood (NEGATIVE) Urine Nitrite (NEGATIVE) Urine Bilirubin (NEGATIVE) Urine Urobilinogen (<2.0) EU/dL Ur Leukocyte Esterase (NEGATIVE) Urine RBC (0-2/HPF) Urine WBC (0-5/HPF) Ur Epithelial Cells (NONE-FEW) Urine Bacteria (NEGATIVE) Urine Mucus (NONE-MOD) Urinalysis Comment SARS-CoV-2 RNA (MIRNA) (NEGATIVE) 07/04/20 07/04/20 07/04/20 Range/Units 15:33 16:16 23:03 WBC (4.0-11.0) K/uL RBC (4.30-5.90) M/uL Hgb (12.0-16.0) g/dL Hct (36.0-46.0) % MCV (80.0-98.0) fL MCH (27.0-32.0) pg MCHC (31.0-37.0) g/dL RDW Std Deviation (28.0-62.0) fl RDW Coeff of Angel (11.0-15.0) % Plt Count (150-400) K/uL MPV (7.40-12.00) fL Neut % (Auto) (48.0-80.0) % Lymph % (Auto) (16.0-40.0) % [place] % (Auto) (0.0-15.0) % Eos % (Auto) (0.0-7.0) % Baso % (Auto) (0.0-1.5) % Neut # (Auto) (1.4-5.7) K/uL Lymph # (Auto) (0.6-2.4) K/uL [place] # (Auto) (0.0-0.8) K/uL Eos # (Auto) (0.0-0.7) K/uL Baso # (Auto) (0.0-0.1) K/uL Nucleated RBC % /100WBC Nucleated RBCs # K/uL INR Sodium (136-145) mmol/L Potassium (3.5-5.1) mmol/L Chloride (98-107) mmol/L Carbon Dioxide (21.0-32.0) mmol/L BUN (7.0-18.0) mg/dL Creatinine (0.6-1.0) mg/dL Est Cr Clr Drug Dosing mL/min Estimated GFR (MDRD) ml/min Glucose (74-106) mg/dL POC Glucose (60-110) mg/dL Calcium (8.5-10.1) mg/dL Magnesium (1.8-2.4) mg/dL Total Bilirubin (0.2-1.0) mg/dL AST (15-37) IU/L ALT (14-63) IU/L Alkaline Phosphatase (46-116) U/L Creatine Kinase 2600 H (26-308) U/L Troponin I (0.000-0.056) ng/mL Total Protein (6.4-8.2) g/dL Albumin (3.4-5.0) g/dL Globulin (2.6-4.0) g/dL Albumin/Globulin Ratio (0.9-1.6) Urine Color YELLOW Urine Appearance CLEAR Urine pH 5.5 (5.0-8.0) Ur Specific [place] 1.025 (1.001-1.035) Urine Protein NEGATIVE (NEGATIVE) mg/dL Urine Glucose (UA) NEGATIVE (NEGATIVE) mg/dL Urine Ketones 15 H (NEGATIVE) mg/dL Urine Occult Blood TRACE-INTACT H (NEGATIVE) Urine Nitrite NEGATIVE (NEGATIVE) Urine Bilirubin NEGATIVE (NEGATIVE) Urine Urobilinogen 0.2 (<2.0) EU/dL Ur Leukocyte Esterase SMALL H (NEGATIVE) Urine RBC 0-2 (0-2/HPF) Urine WBC 0-3 (0-5/HPF) Ur Epithelial Cells FEW (NONE-FEW) Urine Bacteria FEW (NEGATIVE) Urine Mucus LIGHT (NONE-MOD) Urinalysis Comment SARS-CoV-2 RNA (MIRNA) NEGATIVE (NEGATIVE) 07/05/20 07/05/20 07/05/20 Range/Units 05:47 05:47 08:00 WBC 8.25 (4.0-11.0) K/uL RBC 3.91 L (4.30-5.90) M/uL Hgb 11.9 L (12.0-16.0) g/dL Hct 36.4 (36.0-46.0) % MCV 93.1 (80.0-98.0) fL MCH 30.4 (27.0-32.0) pg MCHC 32.7 (31.0-37.0) g/dL RDW Std Deviation 47.2 (28.0-62.0) fl RDW Coeff of Angel 14 (11.0-15.0) % Plt Count 239 (150-400) K/uL MPV 10.70 (7.40-12.00) fL Neut % (Auto) 61.2 (48.0-80.0) % Lymph % (Auto) 20.4 (16.0-40.0) % [place] % (Auto) 10.5 (0.0-15.0) % Eos % (Auto) 7.8 H (0.0-7.0) % Baso % (Auto) 0.1 (0.0-1.5) % Neut # (Auto) 5.1 (1.4-5.7) K/uL Lymph # (Auto) 1.7 (0.6-2.4) K/uL [place] # (Auto) 0.9 H (0.0-0.8) K/uL Eos # (Auto) 0.6 (0.0-0.7) K/uL Baso # (Auto) 0.0 (0.0-0.1) K/uL Nucleated RBC % 0.0 /100WBC Nucleated RBCs # 0 K/uL INR Sodium 137 (136-145) mmol/L Potassium 5.2 H (3.5-5.1) mmol/L Chloride 103 (98-107) mmol/L Carbon Dioxide 25.8 (21.0-32.0) mmol/L BUN 25 H (7.0-18.0) mg/dL Creatinine 1.0 (0.6-1.0) mg/dL Est Cr Clr Drug Dosing 35.66 mL/min Estimated GFR (MDRD) 52.4 ml/min Glucose 144 H (74-106) mg/dL POC Glucose 129 H (60-110) mg/dL Calcium 8.0 L (8.5-10.1) mg/dL Magnesium (1.8-2.4) mg/dL Total Bilirubin 0.9 (0.2-1.0) mg/dL AST 84 H (15-37) IU/L ALT 49 (14-63) IU/L Alkaline Phosphatase 82 (46-116) U/L Creatine Kinase 2040 H (26-308) U/L Troponin I (0.000-0.056) ng/mL Total Protein 6.0 L (6.4-8.2) g/dL Albumin 2.9 L (3.4-5.0) g/dL Globulin 3.1 (2.6-4.0) g/dL Albumin/Globulin Ratio 0.9 (0.9-1.6) Urine Color Urine Appearance Urine pH (5.0-8.0) Ur Specific [place] (1.001-1.035) Urine Protein (NEGATIVE) mg/dL Urine Glucose (UA) (NEGATIVE) mg/dL Urine Ketones (NEGATIVE) mg/dL Urine Occult Blood (NEGATIVE) Urine Nitrite (NEGATIVE) Urine Bilirubin (NEGATIVE) Urine Urobilinogen (<2.0) EU/dL Ur Leukocyte Esterase (NEGATIVE) Urine RBC (0-2/HPF) Urine WBC (0-5/HPF) Ur Epithelial Cells (NONE-FEW) Urine Bacteria (NEGATIVE) Urine Mucus (NONE-MOD) Urinalysis Comment SARS-CoV-2 RNA (MIRNA) (NEGATIVE) Med Orders - Current: Current Medications Hydrocodone Bitart/Acetaminophen ([place] 325-5 Mg) 1 tab PO Q6H PRN PRN Reason: Pain Last Admin: 07/04/20 20:47 Dose: 1 tab Documented by: Clonazepam (Klonopin) 0.25 mg PO BID PRN PRN Reason: Anxiety Last Admin: 07/04/20 23:42 Dose: 0.25 mg Documented by: Sodium Chloride (Normal Saline) 1,000 mls @ 75 mls/hr IV ASDIRECTED [facility] Last Admin: 07/05/20 07:58 Dose: 150 mls/hr Documented by: Latanoprost (Xalatan 0.005% Ophth Soln) 0 ml EYEBOTH BEDTIME [facility] Ropinirole HCl (Requip) 4.5 mg PO BEDTIME [facility] Sodium Chloride (Saline Flush) 10 ml FLUSH ASDIRECTED PRN PRN Reason: Keep Vein Open Sodium Chloride (Saline Flush) 2.5 ml FLUSH ASDIRECTED PRN PRN Reason: Keep Vein Open Venlafaxine HCl (Effexor Xr) 150 mg PO QPM [facility] Discontinued Medications Acetaminophen (Tylenol) 1,000 mg PO ONETIME ONE Stop: 07/04/20 15:22 Last Admin: 07/04/20 15:52 Dose: 1,000 mg Documented by: Lactated Ringer's (Ringers, Lactated) 1,000 mls @ 999 mls/hr IV .BOLUS ONE Stop: 07/04/20 16:21 Last Admin: 07/04/20 15:50 Dose: 999 mls/hr Documented by: Ropinirole HCl (Requip) 3 mg PO BEDTIME [facility] Last Admin: 07/04/20 23:42 Dose: 3 mg Documented by: - Exam General: Alert, Oriented Neck: Supple Lungs: Clear to Auscultation, Normal Respiratory Effort Cardiovascular: Regular Rate, Regular Rhythm Extremities: Non-Tender, No Pedal Edema Skin: Warm, Dry, Intact Neurological: No New Focal Deficit Sepsis Event Note - Evaluation Sepsis Screening Result: No Definite Risk - Focused Exam Vital Signs: Vital Signs Temp Pulse Resp BP Pulse Ox 07/05/20 08:00 36.5 C 72 16 111/54 L 95 07/05/20 04:47 36.3 C 76 18 120/67 97 07/05/20 00:10 36.4 C 88 18 115/55 L 96 - Problem List Review Problem List Initiated/Reviewed/Updated: Yes - My Orders Last 24 Hours: My Active Orders 07/04/20 17:45 Telemetry Monitoring [Cardiac Monitoring] [RC] Q8H 07/04/20 19:55 Acetaminophen/HYDROcodone [Bruin 325-5 MG] 1 tab PO Q6H PRN 07/04/20 19:56 Vital Signs [RC] Q4H 07/04/20 19:57 Activity as Tolerated [RC] .Routine 07/04/20 20:00 Sodium Chloride 0.9% [Normal Saline] 1,000 ml IV ASDIRECTED 07/04/20 22:16 ClonazePAM [KlonoPIN] 0.25 mg PO BID PRN 07/04/20 22:49 Oxygen Therapy [RC] PRN Up ad Lesly [RC] ASDIRECTED VTE/DVT Education [RC] Q12H Vital Signs [RC] Q4H Sequential Compression Device [OM.PC] Per Unit Routine Resuscitation Status Routine 07/04/20 22:50 Antiembolic Devices [RC] PER UNIT ROUTINE 07/05/20 Breakfast Citizen [place] Diabetic [employer] Diet [DIET] 07/05/20 18:00 Venlafaxine [Effexor XR] 150 mg PO QPM 07/05/20 21:00 Latanoprost [Xalatan 0.005% Ophth Soln] 0 ml EYEBOTH BEDTIME rOPINIRole [Requip] 4.5 mg PO BEDTIME - Plan Plan:: 85 yo female admitted following a fall with rhabdomyolysis. CPK 2039 today. Will decrease IV fluid rate, continue to monitor today. Likely discharge home tomorrow.
[2020-07-05] MEDS: Acetaminophen/HYDROcodone 325-5 MG Tab PO PRN ×2 (13:52→21:45)
[2020-07-05] MEDS ORDERED: Venlafaxine 75 MG Cap.ER PO SCH (18:00)
[2020-07-05] MEDS: Insulin Aspart 100 Units/ML 3 ML Pen SUBCUT SCH (18:07)
--- NOTE | 2020-07-05 19:15 | CR ---
Pelvis: AP view of the pelvis was obtained. Comparison: Prior right hip exam of 07/31/17. Prominent superior acetabulum is noted off of both hips. Diffuse joint space narrowing is seen within both hips. Joint space narrowing with the right hip has progressed in severity from prior study. Sacroiliac joints are within normal limits. Osteopenia is seen. Impression: 1. Fairly severe degenerative change within both hips. 2. Osteopenia. Diagnostic code #3 This report was dictated in MDT
[2020-07-05] MEDS ORDERED: Latanoprost 0.005% Ophth Soln 2.5 ML Bottle EYEBOTH SCH (21:00)
[2020-07-05] MEDS: ClonazePAM 0.5 MG Tab PO PRN (23:47)
[2020-07-06] MEDS: Sodium Chloride 0.9% 1,000 ML IV SCH (03:26)
[2020-07-06] MEDS: Insulin Aspart 100 Units/ML 3 ML Pen SUBCUT SCH ×2 (06:29→12:02)
[2020-07-06 06:40] LABS: BLOOD UREA NITROGEN,BUN 16 mg/dL (7.0-18.0); CHLORIDE,CL 108 mmol/L (98-107); GLUCOSE RANDOM 125 mg/dL (74-106); POTASSIUM,K 4.3 mmol/L (3.5-5.1); SODIUM,NA 140 mmol/L (136-145)
[2020-07-06 07:48] VITALS: BP 97/56; PULSE 74
[2020-07-06] MEDS: Acetaminophen/HYDROcodone 325-5 MG Tab PO PRN (08:02)
--- NOTE | 2020-07-06 11:32 | PCM.DCSUM1 ---
Discharge Summary - Discharge Data Discharge Date: 07/06/20 Discharge Disposition: Home, Self-Care 01 Condition: Good - Referral to Home Health Primary Care Physician: PCP None - Patient Summary/Data Consults: Consultations 07/05/20 11:26 PT Evaluation and Treatment [CONS] Routine Hospital Course: 85 yo female with pmh of fibromyalgia who presented to the ED following a fall. Patient reported was on the floor for six hours as she was unable to get up her self. Patient states she believes she lost her balance because she took the [place] and muscle relaxer at the same time. Patient reports she was recently started on [place] for her fibromyalgia pain which is mainly in her hips. Chest x-ray was uremarkable, pelvis x-ray showed osteoperosis. She was found to have a CPK of 2900. She was given IV fluids for rhabdomyolysis. Her CPK did improve and today she is requesting discharge. She is to follow up with [facility]. - Discharge Plan *PRESCRIPTION DRUG MONITORING PROGRAM REVIEWED*: Not Applicable *COPY OF PRESCRIPTION DRUG MONITORING REPORT IN PATIENT NAOMI: Not Applicable Home Medications: Home Meds Venlafaxine [Effexor XR] 150 mg PO QPM 06/15/14 [History] rOPINIRole [Requip] 4.5 mg PO BEDTIME 06/15/14 [History] Latanoprost [Xalatan 0.005% Ophth Soln] 1 drop EYEBOTH BEDTIME 01/20/17 [History] Multivitamin [Daily Multiple Vitamin] 1 tab PO DAILY 01/20/17 [History] metFORMIN [Glucophage XR] 500 mg PO BIDMEALS 01/20/17 [History] Non-Formulary Medication [NF Drug] 0.5 mg IM ASDIRECTED 05/21/20 [History] Acetaminophen/HYDROcodone [[place] 325-5 MG] 1 tab PO Q6H PRN #12 tablet 06/30/20 [Rx] Cyclobenzaprine [Flexeril] 10 mg PO TID PRN #20 tab 06/30/20 [Rx] Lidocaine 5% [Lidoderm 5%] 1 patch TOP DAILY PRN #7 patch 06/30/20 [Rx] Cyanocobalamin (Vitamin B-12) [B-12] 1,000 mcg PO DAILY 07/05/20 [History] Sennosides [Senna Lax] 1 - 2 tab PO DAILY 07/05/20 [History] Trimethoprim 100 mg PO BEDTIME 07/05/20 [History] clonazePAM ODT 0.5 mg SL TID PRN 07/05/20 [History] Patient Handouts: Rhabdomyolysis, Weakness, [id number] Forms: ED Department Discharge Referrals: Florian Iqbal MD [Physician] - 07/14/20 9:00 am (You also have a brief 15 minute 'follow up' appointment scheduled with Dr. Iqbal on July 10; we did not want to cancel it without knowing what it was for; perhaps call to see if that one is still necessary. ) - Discharge Summary/Plan Comment DC Time >30 min.: No - Patient Data Vitals - Most Recent: Last Vital Signs Temp 36.3 C 07/06/20 07:15 Pulse 74 07/06/20 07:15 Resp 18 07/06/20 07:15 BP 97/56 L 07/06/20 07:15 Pulse Ox 94 L 07/06/20 07:15 Weight - Most Recent: 96.162 kg I&O - Last 24 hours: Intake & Output 07/05/20 07/06/20 07/06/20 22:59 06:59 14:59 Intake Total 1080 1000 460 Output Total 1200 900 Balance -120 100 460 Lab Results - Last 24 hrs: Laboratory Results - last 24 hr 07/05/20 07/05/20 07/06/20 Range/Units 12:26 17:20 05:50 WBC 6.03 (4.0-11.0) K/uL RBC 3.48 L (4.30-5.90) M/uL Hgb 10.5 L (12.0-16.0) g/dL Hct 32.9 L (36.0-46.0) % MCV 94.5 (80.0-98.0) fL MCH 30.2 (27.0-32.0) pg MCHC 31.9 (31.0-37.0) g/dL RDW Std Deviation 48.8 (28.0-62.0) fl RDW Coeff of Angel 14 (11.0-15.0) % Plt Count 218 (150-400) K/uL MPV 10.20 (7.40-12.00) fL Neut % (Auto) 47.2 L (48.0-80.0) % Lymph % (Auto) 34.7 (16.0-40.0) % [place] % (Auto) 7.5 (0.0-15.0) % Eos % (Auto) 10.1 H (0.0-7.0) % Baso % (Auto) 0.5 (0.0-1.5) % Neut # (Auto) 2.9 (1.4-5.7) K/uL Lymph # (Auto) 2.1 (0.6-2.4) K/uL [place] # (Auto) 0.5 (0.0-0.8) K/uL Eos # (Auto) 0.6 (0.0-0.7) K/uL Baso # (Auto) 0.0 (0.0-0.1) K/uL Nucleated RBC % 0.0 /100WBC Nucleated RBCs # 0 K/uL Sodium (136-145) mmol/L Potassium (3.5-5.1) mmol/L Chloride (98-107) mmol/L Carbon Dioxide (21.0-32.0) mmol/L BUN (7.0-18.0) mg/dL Creatinine (0.6-1.0) mg/dL Est Cr Clr Drug Dosing mL/min Estimated GFR (MDRD) ml/min Glucose (74-106) mg/dL POC Glucose 108 161 H (60-110) mg/dL Calcium (8.5-10.1) mg/dL Creatine Kinase (26-308) U/L 07/06/20 07/06/20 07/06/20 Range/Units 05:50 06:26 07:29 WBC (4.0-11.0) K/uL RBC (4.30-5.90) M/uL Hgb (12.0-16.0) g/dL Hct (36.0-46.0) % MCV (80.0-98.0) fL MCH (27.0-32.0) pg MCHC (31.0-37.0) g/dL RDW Std Deviation (28.0-62.0) fl RDW Coeff of Angel (11.0-15.0) % Plt Count (150-400) K/uL MPV (7.40-12.00) fL Neut % (Auto) (48.0-80.0) % Lymph % (Auto) (16.0-40.0) % [place] % (Auto) (0.0-15.0) % Eos % (Auto) (0.0-7.0) % Baso % (Auto) (0.0-1.5) % Neut # (Auto) (1.4-5.7) K/uL Lymph # (Auto) (0.6-2.4) K/uL [place] # (Auto) (0.0-0.8) K/uL Eos # (Auto) (0.0-0.7) K/uL Baso # (Auto) (0.0-0.1) K/uL Nucleated RBC % /100WBC Nucleated RBCs # K/uL Sodium 140 (136-145) mmol/L Potassium 4.3 (3.5-5.1) mmol/L Chloride 108 H (98-107) mmol/L Carbon Dioxide 23.0 (21.0-32.0) mmol/L BUN 16 (7.0-18.0) mg/dL Creatinine 0.7 (0.6-1.0) mg/dL Est Cr Clr Drug Dosing 50.95 mL/min Estimated GFR (MDRD) > 60.0 ml/min Glucose 125 H (74-106) mg/dL POC Glucose 103 124 H (60-110) mg/dL Calcium 8.0 L (8.5-10.1) mg/dL Creatine Kinase 857 H (26-308) U/L Med Orders - Current: Current Medications Hydrocodone Bitart/Acetaminophen ([place] 325-5 Mg) 1 tab PO Q6H PRN PRN Reason: Pain Last Admin: 07/06/20 08:02 Dose: 1 tab Documented by: Clonazepam (Klonopin) 0.25 mg PO BID PRN PRN Reason: Anxiety Last Admin: 07/05/20 23:47 Dose: 0.25 mg Documented by: Insulin Aspart (Novolog) 0 unit SUBCUT TIDAC [facility]; Protocol Last Admin: 07/06/20 06:29 Dose: Not Given Documented by: Latanoprost (Xalatan 0.005% Ophth Soln) 0 ml EYEBOTH BEDTIME [facility] Last Admin: 07/05/20 21:46 Dose: Not Given Documented by: Ropinirole HCl (Requip) 4.5 mg PO DAILY@1900 [facility] Last Admin: 07/05/20 18:19 Dose: 4.5 mg Documented by: Sodium Chloride (Saline Flush) 10 ml FLUSH ASDIRECTED PRN PRN Reason: Keep Vein Open Sodium Chloride (Saline Flush) 2.5 ml FLUSH ASDIRECTED PRN PRN Reason: Keep Vein Open Venlafaxine HCl (Effexor Xr) 150 mg PO QPM [facility] Last Admin: 07/05/20 18:07 Dose: 150 mg Documented by: Discontinued Medications Acetaminophen (Tylenol) 1,000 mg PO ONETIME ONE Stop: 07/04/20 15:22 Last Admin: 07/04/20 15:52 Dose: 1,000 mg Documented by: Lactated Ringer's (Ringers, Lactated) 1,000 mls @ 999 mls/hr IV .BOLUS ONE Stop: 07/04/20 16:21 Last Admin: 07/04/20 15:50 Dose: 999 mls/hr Documented by: Sodium Chloride (Normal Saline) 1,000 mls @ 75 mls/hr IV ASDIRECTED [facility] Last Admin: 07/06/20 03:26 Dose: 75 mls/hr Documented by: Ropinirole HCl (Requip) 3 mg PO BEDTIME [facility] Last Admin: 07/04/20 23:42 Dose: 3 mg Documented by: Ropinirole HCl (Requip) 4.5 mg PO BEDTIME [facility]
== END 2020-07-06 13:00 | disposition home or self-care (01) ==
LOC: MW.ED 14:36 → MW.MS 17:06
PROVIDERS: ADMIT Internal Medicine; ATTEND Internal Medicine
DX: M62.82 Rhabdomyolysis (principal); E78.00 Pure hypercholesterolemia, unspecified; I10 Essential (primary) hypertension; E11.9 Type 2 diabetes mellitus without complications; E66.9 Obesity, unspecified; M81.0 Age-related osteoporosis without current pathological fracture; F41.9 Anxiety disorder, unspecified; F32.9 Major depressive disorder, single episode, unspecified; Z88.5 Allergy status to narcotic agent; Z20.828 Contact with and (suspected) exposure to other viral communicable diseases; Z88.0 Allergy status to penicillin; Z79.899 Other long term (current) drug therapy; Z79.84 Long term (current) use of oral hypoglycemic drugs; Z88.2 Allergy status to sulfonamides; Z88.8 Allergy status to other drugs, medicaments and biological substances; Z68.34 Body mass index [BMI] 34.0-34.9, adult; Z88.1 Allergy status to other antibiotic agents; W19.XXXA Unspecified fall, initial encounter; Y92.009 Unspecified place in unspecified non-institutional (private) residence as the place of occurrence of the external cause
CPT/HCPCS: 36415; 71045; 71045-26; 72170; 72170-26; 80048; 80053; 81001; 82550; 82962; 83735; 84484; 85025; 85610; 93005; 96360; 96361; 97161-GP; 99217; 99218; 99224; 99285-25; A9270-GY; G0378; J1815-GY; J7030; J7120; U0002

== ENCOUNTER 2020-07-18 11:20 | Emergency (ER) | payer MEDICARE, OTHER ==
--- NOTE | 2020-07-18 11:33 | EDM.PDOC ---
ED HPI GENERAL MEDICAL PROBLEM - General Chief Complaint: Lower Extremity Injury/Pain Stated Complaint: NUMBNESS OF L/ LEG Time Seen by Provider: 07/18/20 11:32 Source of Information: Reports: Patient, Old Records History Limitations: Reports: No Limitations - History of Present Illness INITIAL COMMENTS - FREE TEXT/NARRATIVE: 85-year-old female with past medical history of osteoarthritis, restless leg syndrome, diabetes mellitus, fibromyalgia, hypertension, autoimmune hepatitis in remission, chronic back pain with neurostimulator in place presenting with left lower extremity numbness. She reports a 2-day history of numbness to the left lower extremity distal to the knee, involving the entirety of the left leg and left foot. No history of any associated trauma. No past medical history of peripheral arterial disease or DVT/PE. No known history of neuropathy including diabetic neuropathy. She denies any lower extremity pain, swelling, redness, warmth, chest pain, s hortness of breath, history of venous thromboembolism, history of active cancer, recent surgery or immobilization or long travel. Past medical history: Reviewed, no additional pertinent history. Surgical history: Reviewed in system, no additional pertinent history. Social history: Reviewed in system, no additional pertinent history. Family history: Reviewed in system, no additional pertinent history. PHYSICAL EXAM Vital signs reviewed. Nursing notes reviewed. Constitutional: Awake, alert, non-distressed. Head: Normocephalic, atraumatic. Eyes: EOMI, conjunctiva normal, no discharge, no scleral icterus. Ears, Nose, Throat: External ears and nose normal, moist oral mucosa. Cardiovascular: 2+ radial pulse, capillary refill less than 2 seconds. 2+ bilateral DP and PT pulses, lower extremities are iso-thermic and have identical color, warm and well-perfused. Pulmonary: normal work of breathing, no accessory muscle use. Abdomen/GI: Soft, nontender, nondistended, no guarding or rigidity, no masses. Musculoskeletal: No deformities. Left lower extremity exhibits no warmth or swelling to suggest a DVT or cellulitis. Normal active and passive range of motion of the left ankle and left foot. Integumentary: Appropriate color for ethnicity, warm, dry, no pallor or jaundice, no rash. Neurologic: Alert, answering questions appropriately, normal speech, no facial droop, moving all extremities well. 5/5 strength to the bilateral lower extremities. Subjective decreased sensation to light touch to the left leg and foot. Upgoing EHLs bilaterally. Psychiatric: Appropriate mood and affect, normal thought process. - Related Data Allergies Allergy/AdvReac Type Severity Reaction Status Date / Time metronidazole Allergy Cannot Verified 07/18/20 11:28 Remember morphine Allergy Nausea and Verified 07/18/20 11:28 Vomiting Penicillins Allergy Swelling Verified 07/18/20 11:28 propoxyphene HCl Allergy Drowsiness Verified 07/18/20 11:28 [From Darvon] sulfamethoxazole Allergy Rash Verified 07/18/20 11:28 [From Bactrim] trimethoprim [From Bactrim] Allergy Rash Verified 07/18/20 11:28 Home Meds: Home Meds Venlafaxine [Effexor XR] 150 mg PO QPM 06/15/14 [History] rOPINIRole [Requip] 4.5 mg PO BEDTIME 06/15/14 [History] Latanoprost [Xalatan 0.005% Ophth Soln] 1 drop EYEBOTH BEDTIME 01/20/17 [History] Multivitamin [Daily Multiple Vitamin] 1 tab PO DAILY 01/20/17 [History] metFORMIN [Glucophage XR] 500 mg PO BIDMEALS 01/20/17 [History] Non-Formulary Medication [NF Drug] 0.5 mg IM ASDIRECTED 05/21/20 [History] Acetaminophen/HYDROcodone [[place] 325-5 MG] 1 tab PO Q6H PRN #12 tablet 06/30/20 [Rx] Cyclobenzaprine [Flexeril] 10 mg PO TID PRN #20 tab 06/30/20 [Rx] Lidocaine 5% [Lidoderm 5%] 1 patch TOP DAILY PRN #7 patch 06/30/20 [Rx] Cyanocobalamin (Vitamin B-12) [B-12] 1,000 mcg PO DAILY 07/05/20 [History] Sennosides [Senna Lax] 1 - 2 tab PO DAILY 07/05/20 [History] Trimethoprim 100 mg PO BEDTIME 07/05/20 [History] clonazePAM ODT 0.5 mg SL TID PRN 07/05/20 [History] Past Medical History HEENT History: Reports: Glaucoma, Hard of Hearing, Impaired Vision Other HEENT History: wears glasses, has upper denture and lower partial removable denture Cardiovascular History: Reports: High Cholesterol, Hypertension Respiratory History: Reports: Bronchitis, Recurrent Gastrointestinal History: Reports: Hepatitis Other Gastrointestinal History: Autoimmune Hepatitis, was treated with Prednisone for 2 years- liver now ok per patient 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: Reports: None [employer] History: Reports: Musculoskeletal History: Reports: Arthritis, Back Pain, Chronic, Fracture Other Musculoskeletal History: hx of fx foot Neurological History: Reports: Migraines, Other (See Below) Other Neuro History: HX of restless leg syndrome Psychiatric History: Reports: Anxiety, Depression Endocrine/Metabolic History: Reports: Diabetes, Type II, Obesity/BMI 30+ Other Endocrine/Metabolic History: recent dx of diabetes Hematologic History: Reports: None Immunologic History: Reports: None Oncologic (Cancer) History: Reports: None Dermatologic History: Reports: Other (See Below) Other Dermatologic History: rash on right arm and and legs - Infectious Disease History Infectious Disease History: Reports: Chicken Pox, Measles, Mumps Other Infectious Disease History: Autoiimune hepatitis - Past Surgical History HEENT Surgical History: Reports: Tonsillectomy, Other (See Below) Cardiovascular Surgical History: Reports: None Respiratory Surgical History: Reports: None GI Surgical History: Reports: Appendectomy, Cholecystectomy Female Surgical History: Reports: Hysterectomy, Other (See Below) Endocrine Surgical History: Reports: None Neurological Surgical History: Reports: Spinal Fusion Musculoskeletal Surgical History: Reports: Knee Replacement Dermatological Surgical History: Reports: None Social & Family History - Family History Family Medical History: Noncontributory HEENT: Reports: Glaucoma Cardiac: Reports: High Cholesterol, [place] Psychiatric: Reports: Anxiety, Depression Oncologic: Reports: Lymphoma - Caffeine Use Caffeine Use: Reports: Coffee, Tea Review of Systems - Review of Systems Review Of Systems: See Below ED EXAM, GENERAL - Physical Exam Exam: See Below Course - Vital Signs Text/Narrative:: Patient hemodynamically stable, afebrile, well-appearing, looks nontoxic. Differential diagnosis includes but is not limited to: Neuropathy, peripheral ar terial disease, DVT, cellulitis Neurovascular intact in the bilateral lower extremities, normal motor function. Presentation is not consistent with cellulitis, an arterial clot, or DVT. Strong peripheral pulses and to the bilateral lower extremities are warm and well-perfused with normal motor function. Subjective diminished sensation to light touch to the left leg and foot. Suspect complication of RLS versus early onset neuropathy. Patient ambulates with a walker at baseline. I do have some hesitation about starting her on a medication such as gabapentin given potential fall risk due to ataxia or lightheadedness. I did discuss the risks versus benefits of starting a medication and the patient wants to follow-up with her primary doctor the next couple of days to decide about this together which I think is reasonable. We did discuss symptomatic treatment with her ropinirole, acetaminophen, and heating pad in the meantime. We also discussed return precautions. Plan: Patient is stable to discharge home with outpatient primary care clinic follow-up. Strict emergency department return precautions were provided, patient indicated understanding. All questions were answered prior to departure. Discharged in good condition. Last Recorded V/S: Last Vital Signs Temp 36.1 C 07/18/20 11:29 Pulse 91 07/18/20 11:29 Resp 17 07/18/20 11:29 BP 162/62 H 07/18/20 11:29 Pulse Ox 98 07/18/20 11:29 Departure - Departure Time of Disposition: 11:57 Disposition: Home, Self-Care 01 Condition: Good Clinical Impression: Numbness of left lower extremity - Discharge Information *PRESCRIPTION DRUG MONITORING PROGRAM REVIEWED*: Not Applicable *COPY OF PRESCRIPTION DRUG MONITORING REPORT IN PATIENT NAOMI: Not Applicable Instructions: Paresthesia Referrals: Florian Iqbal MD [Primary Care Provider] - 1 Week (For follow-up of symptoms.) Forms: ED Department Discharge Additional Instructions: You were seen in the emergency department for numbness of your left leg. At this point the pulses in your left leg seem normal and I am not concerned about a blood clot or infection. The numbness in your leg could be related to your restless leg syndrome or could be the beginnings of diabetic neuropathy. We did discuss starting a medication called gabapentin but I think we are going to let you follow-up with your primary doctor to decide if you want to start this or not. In the meantime I suggest continuing your prescribed ropinirole and your prescribed pain medications and trying a heating pad to see if that helps. Warning signs to come back to the ER include pain or swelling of the leg, redness, warmth, chest pain or shortness of breath, or any other new or concerning symptoms. Please return the emergency department immediately if your symptoms worsen or if you feel worse. Thank you for choosing the [facility] emergency department in [place] for your medical needs today. It was a pleasure caring for you. The following information is given to patients seen in the emergency department who are being discharged. This information is to outline your options for follow-up care. We provide all patients seen in our emergency department with a follow-up referral. The need for follow-up, as well as the timing and circumstances, are variable depending upon the specifics of your emergency department visit. If you don't have a primary care physician on staff, we will provide you with a referral. We always advise you to contact your personal physician following an emergency department visit to inform them of the circumstance of the visit and for follow-up with them and/or the need for any referrals to a consulting specialist. The emergency department will also refer you to a specialist when appropriate. This referral assures that you have the opportunity for follow-up care with a specialist. All of these measure are taken in an effort to provide you with optimal care, which includes your follow-up. Under all circumstances we always encourage you to contact your private physician who remains a resource for coordinating your care. When calling for follow-up care, please make the office aware that this follow-up is from your recent emergency room visit. If for any reason you are refused follow-up, please contact the [facility] Emergency Department at and asked to speak to the emergency department charge nurse. If you do not have a primary care physician that is caring for you, you can contact these clinics below to set up an appointment to establish care: [facility] - Primary Care [address] [place] [id number] [facility] [address] [place] [address] Sepsis Event Note (ED) - Evaluation Sepsis Screening Result: No Definite Risk - Focused Exam Vital Signs: Vital Signs Temp Pulse Resp BP Pulse Ox 07/18/20 11:29 36.1 C 91 17 162/62 H 98
[2020-07-18 12:13] VITALS: BP 146/73; PULSE 81
== END 2020-07-18 12:07 | disposition home or self-care (01) ==
LOC: MW.ED 11:20
DX: R20.0 Anesthesia of skin (principal); G25.81 Restless legs syndrome; E11.9 Type 2 diabetes mellitus without complications; I10 Essential (primary) hypertension; E66.9 Obesity, unspecified; F41.9 Anxiety disorder, unspecified; F32.9 Major depressive disorder, single episode, unspecified; Z79.84 Long term (current) use of oral hypoglycemic drugs; Z79.899 Other long term (current) drug therapy; Z68.41 Body mass index [BMI] 40.0-44.9, adult; Z88.5 Allergy status to narcotic agent; Z88.1 Allergy status to other antibiotic agents; Z88.0 Allergy status to penicillin; Z88.6 Allergy status to analgesic agent; Z88.2 Allergy status to sulfonamides
CPT/HCPCS: 99283

== ENCOUNTER 2020-08-13 07:33 | Emergency (ER) | payer MEDICARE, OTHER ==
[2020-08-13] MEDS ORDERED: Lidocaine 5% 700 MG Patch TOP ONE (07:58)
[2020-08-13] MEDS ORDERED: Ketorolac 15 MG/ML SDV IM ONE (07:59)
[2020-08-13] MEDS ORDERED: Dexamethasone 10 MG/ML SDV IM ONE (07:59)
[2020-08-13] MEDS ORDERED: fentaNYL 50 MCG/ML SDV IM ONE (08:00)
--- NOTE | 2020-08-13 08:12 | EDM.PDOC ---
ED HPI GENERAL MEDICAL PROBLEM - General Chief Complaint: Back Pain or Injury Stated Complaint: BACK PAIN Time Seen by Provider: 08/13/20 07:42 - History of Present Illness INITIAL COMMENTS - FREE TEXT/NARRATIVE: HISTORY AND PHYSICAL: History of present illness: This is an 85-year-old female with a history significant for chronic lower back pain status post neurostimulator placement to assist with her chronic left lower extremity pain, DJD, restless leg syndrome, diabetes, fibromyalgia, hypertension, autoimmune hepatitis who presents ER today secondary to pain earlier this morning when she woke up. Patient reports that she was try to get up to the bathroom and was having severe pain so called EMS for assistance to come to the ER to help her with her pain. Patient reports that when she woke up this morning that she did not take any pain medicines. She reports that her doctor who she has seen recently prescribed Trinchera for her. She reports that the Trinchera is not helping her very much. Patient reports that she is still utilizing the lidocaine patches that were prescribed for her by myself last month however she reports that that is not helping her very much either. Patient reports that none of her medications have been assisting her as much as she would like with her back pain. Patient denies any recent fevers, shakes, chills, nausea, vomiting, diarrhea, dysuria, frequency, urgency, chest pain, shortness of breath, abdominal pain. Patient denies any weakness to her upper or lower extremities. Patient reports that her ambulation is limited secondary to pain. Patient denies any loss of bowel or bladder function. Patient denies any paresthesias to her perineal region. Patient denies any lower extremity edema or warmth. Review of systems: As per history of present illness and below otherwise all systems reviewed and negative. Past medical history: As per history of present illness and as reviewed below otherwise noncontributory. Surgical history: As per history of present illness and as reviewed below otherwise noncontributory. Social history: No reported history of drug or alcohol abuse. Family history: As per history of present illness and as reviewed below otherwise nonc ontributory. Physical exam: Constitutional: Patient is oriented to person, place, and time. Appears well- developed and well-nourished. No distress. HEENT: Moist mucous membranes Head: Normocephalic and atraumatic Eyes: Right eye exhibits no discharge. Left eye exhibits no discharge. No scleral icterus Neck: Normal range of motion. No tracheal deviation present. Cardiovascular: Normal rate and regular rhythm. Pulmonary: Effort normal, no respiratory distress. Abdominal: No distention Musculoskeletal: Normal range of motion Neurologic: Alert and oriented to person, place and time. Skin: [place], warm and dry. Psychiatric: Normal mood and affect. Behavior is normal. Judgment and thought content normal. Nursing note and vital signs have been reviewed Patient's ER exam is significant for tenderness palpation to her lower back. Patient has no C or T-spine tenderness palpation. Patient is neuro logically intact. Patient has 5 out of 5 upper and lower extremity strength. Patient has no paresthesias identified in her perineal region. Although patient thought that she had a lidocaine patch in place, evaluation reveals no lidocaine patch is found on her back. Therapeutics: Lidoderm patch Fentanyl 25 mics IM Decadron 10 mg IM Toradol 15 mg IM Assessment and plan: This is an 85-year-old female with chronic lower back pain who presents ER today with worsening pain this morning when she woke up and tried to get up to go the bathroom. Patient is currently being followed closely by her primary care doctor. Patient has a neurostimulator assist with her left lower extremity chronic pain. Patient currently does have a prescription for Trinchera to assist her with her pain discomfort but she reports that she took 2 tablets yesterday without any significant change in her discomfort. I have had a long discussion with the patient regarding the need to follow-up with her primary care physician and come up with plan for medication when she has breakthrough pain like she does this morning. I will give the patient a dose of Toradol and have recommended that she take a low-dose nonsteroidal in addition to her current pain regimen. Patient will get Decadron and a short burst of steroids. Patient be given fentanyl 25 mics IM to assist with her acute pain currently. We will also add Lidoderm patch while she is here that she should be taking at home. Reassessment at the time of disposition demonstrates that the patient is in no acute distress. The patient has remained stable throughout the entire ED visit and is without objective evidence for acute process requiring urgent intervention or hospitalization. The patient is stable for discharge, counseling is provided as documented above, discussed symptomatic treatment and specific conditions for return. I have spoken with the patient/caregiver and discussed todays findings, in addition to providing specific details for the plan of care. Questions are answered and there is agreement with the plan. Definitive disposition and diagnosis as appropriate pending reevaluation and review of above. Low back Pain Score (Numeric/FACES): 7 - Related Data Allergies Allergy/AdvReac Type Severity Reaction Status Date / Time metronidazole Allergy Cannot Verified 08/13/20 07:34 Remember morphine Allergy Nausea and Verified 08/13/20 07:34 Vomiting Penicillins Allergy Swelling Verified 08/13/20 07:34 propoxyphene HCl Allergy Drowsiness Verified 08/13/20 07:34 [From Darvon] sulfamethoxazole Allergy Rash Verified 08/13/20 07:34 [From Bactrim] trimethoprim [From Bactrim] Allergy Rash Verified 08/13/20 07:34 Home Meds: Home Meds Venlafaxine [Effexor XR] 150 mg PO QPM 06/15/14 [History] rOPINIRole [Requip] 4.5 mg PO BEDTIME 06/15/14 [History] Latanoprost [Xalatan 0.005% Ophth Soln] 1 drop EYEBOTH BEDTIME 01/20/17 [History] Multivitamin [Daily Multiple Vitamin] 1 tab PO DAILY 01/20/17 [History] metFORMIN [Glucophage XR] 500 mg PO BIDMEALS 01/20/17 [History] Non-Formulary Medication [NF Drug] 0.5 mg IM ASDIRECTED 05/21/20 [History] Acetaminophen/HYDROcodone [Trinchera 325-5 MG] 1 tab PO Q6H PRN #12 tablet 06/30/20 [Rx] Cyclobenzaprine [Flexeril] 10 mg PO TID PRN #20 tab 06/30/20 [Rx] Lidocaine 5% [Lidoderm 5%] 1 patch TOP DAILY PRN #7 patch 06/30/20 [Rx] Cyanocobalamin (Vitamin B-12) [B-12] 1,000 mcg PO DAILY 07/05/20 [History] Sennosides [Senna Lax] 1 - 2 tab PO DAILY 07/05/20 [History] Trimethoprim 100 mg PO BEDTIME 07/05/20 [History] clonazePAM ODT 0.5 mg SL TID PRN 07/05/20 [History] Lidocaine 5% [Lidoderm 5%] 1 patch TOP DAILY PRN #7 patch 08/13/20 [Rx] Naproxen [Naprosyn] 500 mg PO BID PRN #30 tablet 08/13/20 [Rx] predniSONE [Prednisone] 50 mg PO DAILY #5 tablet 08/13/20 [Rx] Past Medical History HEENT History: Reports: Glaucoma, Hard of Hearing, Impaired Vision Other HEENT History: wears glasses, has upper denture and lower partial removable denture Cardiovascular History: Reports: High Cholesterol, Hypertension Respiratory History: Reports: Bronchitis, Recurrent Gastrointestinal History: Reports: Hepatitis Other Gastrointestinal History: Autoimmune Hepatitis, was treated with Prednisone for 2 years- liver now ok per patient 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: Reports: None [employer] History: Reports: Musculoskeletal History: Reports: Arthritis, Back Pain, Chronic, Fracture Other Musculoskeletal History: hx of fx foot Neurological History: Reports: Migraines, Other (See Below) Other Neuro History: HX of restless leg syndrome Psychiatric History: Reports: Anxiety, Depression Endocrine/Metabolic History: Reports: Diabetes, Type II, Obesity/BMI 30+ Other Endocrine/Metabolic History: recent dx of diabetes Hematologic History: Reports: None Immunologic History: Reports: None Oncologic (Cancer) History: Reports: None Dermatologic History: Reports: Other (See Below) Other Dermatologic History: rash on right arm and and legs - Infectious Disease History Infectious Disease History: Reports: None Other Infectious Disease History: Autoiimune hepatitis - Past Surgical History HEENT Surgical History: Reports: Tonsillectomy, Other (See Below) Cardiovascular Surgical History: Reports: None Respiratory Surgical History: Reports: None GI Surgical History: Reports: Appendectomy, Cholecystectomy Female Surgical History: Reports: Hysterectomy, Other (See Below) Endocrine Surgical History: Reports: None Neurological Surgical History: Reports: Spinal Fusion Musculoskeletal Surgical History: Reports: Knee Replacement Dermatological Surgical History: Reports: None Social & Family History - Family History Family Medical History: Noncontributory HEENT: Reports: Glaucoma Cardiac: Reports: High Cholesterol, MD Psychiatric: Reports: Anxiety, Depression Oncologic: Reports: Lymphoma - Tobacco Use Tobacco Use Status *Q: Never Tobacco User - Caffeine Use Caffeine Use: Reports: Coffee - Recreational Drug Use Recreational Drug Use: No ED ROS GENERAL - Review of Systems Review Of Systems: See Below ED EXAM, GENERAL - Physical Exam Exam: See Below Course - Vital Signs Last Recorded V/S: Last Vital Signs Temp 96.5 F L 08/13/20 07:37 Pulse 91 08/13/20 07:37 Resp 16 08/13/20 07:37 BP 125/60 08/13/20 07:37 Pulse Ox 98 08/13/20 07:37 - Orders/Labs/Meds Meds: Medications Discontinued Medications Generic Name Dose Route Start Last Admin Trade Name Cecy PRN Reason Stop Dose Admin Dexamethasone 10 mg 08/13/20 07:59 Decadron IM 08/13/20 08:00 ONETIME ONE Fentanyl 25 mcg 08/13/20 08:00 Fentanyl IM 08/13/20 08:01 ONETIME ONE Ketorolac Tromethamine 15 mg 08/13/20 07:59 Toradol IM 08/13/20 08:00 ONETIME ONE Lidocaine 700 mg 08/13/20 07:58 Lidoderm 5% TOP 08/13/20 07:59 ONETIME ONE Departure - Departure Time of Disposition: 08:37 Disposition: Home, Self-Care 01 Condition: Good Clinical Impression: Chronic back pain, Acute bilateral back pain - Discharge Information Instructions: Acute Back Pain, Adult, What You Need to Know About Chronic Back Pain, Chronic Back Pain, [id number] Additional Instructions: Your seen and evaluated the ER today secondary to an exacerbation of your chronic lower back pain. Please call your doctor today to set up an appointment to see him to assist you with pain management. You have been given Decadron, Toradol, fentanyl and a Lidoderm patch while here in the ED. You will also be given a prescription for prednisone and low-dose ibuprofen to take as well as your Lidoderm patch. The following information is given to patients seen in the emergency department who are being discharged to home. This information is to outline your options for follow-up care. We provide all patients seen in our emergency department with a follow-up referral. The need for follow-up, as well as the timing and circumstances, are variable depending upon the specifics of your emergency department visit. If you don't have a primary care physician on staff, we will provide you with a referral. We always advise you to contact your personal physician following an emergency department visit to inform them of the circumstance of the visit and for follow-up with them and/or the need for any referrals to a consulting specialist. The emergency department will also refer you to a specialist when appropriate. This referral assures that you have the opportunity for follow-up care with a specialist. All of these measure are taken in an effort to provide you with optimal care, which includes your follow-up. Under all circumstances we always encourage you to contact your private physician who remains a resource for coordinating your care. When calling for follow-up care, please make the office aware that this follow-up is from your recent emergency room visit. If for any reason you are refused follow-up, please contact the [facility] at and asked to speak to the emergency department charge nurse. [facility] [address] [place] [id number] [facility] [address] [place] [id number] Sepsis Event Note (ED) - Evaluation Sepsis Screening Result: No Definite Risk - Focused Exam Vital Signs: Vital Signs Temp Pulse Resp BP Pulse Ox 08/13/20 07:37 96.5 F L 91 16 125/60 98
[2020-08-13 11:13] VITALS: BP 136/65; PULSE 86
== END 2020-08-13 11:14 | disposition home or self-care (01) ==
LOC: MW.ED 07:33
DX: G89.29 Other chronic pain (principal); M54.5 Low back pain; I10 Essential (primary) hypertension; G25.81 Restless legs syndrome; M54.2 Cervicalgia; F41.9 Anxiety disorder, unspecified; F32.9 Major depressive disorder, single episode, unspecified; E11.9 Type 2 diabetes mellitus without complications; E66.9 Obesity, unspecified; Z68.41 Body mass index [BMI] 40.0-44.9, adult; Z88.1 Allergy status to other antibiotic agents; Z88.5 Allergy status to narcotic agent; Z88.0 Allergy status to penicillin; Z88.2 Allergy status to sulfonamides; Z79.899 Other long term (current) drug therapy; Z79.84 Long term (current) use of oral hypoglycemic drugs
CPT/HCPCS: 96372; 99283; A9270; J1100; J1885; J3010